=== PATIENT | male | born 1935 | race Caucasian/White ===

== ENCOUNTER → 2017-08-26 08:41 | Outpatient (CLI) | payer MEDICARE, SELFPAY ==
--- NOTE | 2017-08-26 08:43 | CDU_ITS ---
Reason For Study: Carotid stenosis Rt. Velocities/BP Lt. Velocities/BP Prox CCA 65.1/11.1 cm/sec. Prox CCA 78.6/15.2 cm/sec. Mid CCA 48.1/11.1 cm/sec. Mid CCA 73.3/11.1 cm/sec. Dist CCA 46.9/10.6 cm/sec. Dist CCA 72.1/15.2 cm/sec. Prox ICA 63.9/17.6 cm/sec. Prox ICA 61.6/15.8 cm/sec. Mid ICA 77.4/19.9 cm/sec. Mid ICA 79.2/27.0 cm/sec. Dist ICA 70.4/21.1 cm/sec. Dist ICA 78.0/24.6 cm/sec. Rt. ICA/CCA = 1.6. Lt. ICA/CCA = 1.1. Prox ECA 54.0/5.2 cm/sec. Prox ECA 75.0/8.8 cm/sec. Rt. Vert. 30.6/9.4 cm/sec. Lt. Vert. 65.1/17.0 cm/sec. Right Extracranial There is heterogeneous, irregular atherosclerotic plaque noted in the right common carotid artery. There is heterogeneous, irregular atherosclerotic plaque noted in the right internal carotid artery. There is heterogeneous, irregular atherosclerotic plaque noted in the right external carotid artery. Antegrade flow is noted in the right vertebral artery. Left Extracranial There is heterogeneous, irregular atherosclerotic plaque noted in the left common carotid artery. There is heterogeneous, irregular atherosclerotic plaque noted in the left internal carotid artery. There is heterogeneous, irregular atherosclerotic plaque noted in the left external carotid artery. Antegrade flow is noted in the left vertebral artery. Procedure Carotid Duplex [id number]. Exam performed in department. Interpretation Summary Mild (<50%) stenosis right extracranial internal carotid. However, acoustic shadowing is noted in the proximal right internal carotid artery due to arterial calcification, obscuring loyd-scale views of the arterial lumen. The degree of stenosis in the right internal carotid artery may exceed that estimated by velocity criteria alone, and clinical correlation is advised. Alternative imaging may be helpful. Mild (<50%) stenosis left extracranial internal carotid. Flow within the vertebral arteries is antegrade bilaterally. Ordering Physician: Delfino Carrizales Referring Physician: Delfino Carrizales Performed By: Adelaida Zambrano RVT
== END ==
PROVIDERS: Family Provider Family Medicine; PCP Family Medicine; Visit Provider Family Medicine
DX: I65.23 Occlusion and stenosis of bilateral carotid arteries (principal); I25.10 Atherosclerotic heart disease of native coronary artery without angina pectoris
CPT/HCPCS: 93880

== ENCOUNTER → 2017-09-09 07:45 | Outpatient (CLI) | payer MEDICARE, SELFPAY ==
--- NOTE | 2017-09-09 07:51 | CT_ITS ---
STUDY: CTA NECK WITH CONTRAST REASON FOR EXAM: Male, 82 years old. History of carotid stenosis. Prior left carotid endarterectomy. RADIATION DOSAGE (If Supplied By Facility): CTDIvol = ( 19.03 ) mGy, DLP = ( 550.93 ) mGycm TECHNIQUE: CT angiography with multi-detector data acquisition was performed from the aortic arch to the skull base following intravenous administration of 100mL ml of Isovue 370 contrast. MIP images were reconstructed from the axial data set. Post-processing of the angiographic images was performed, with multiplanar reformation and 3D reconstruction. Individualized dose optimization techniques were used for this CT. COMPARISON: Comparison is made with prior study dated December 12, 2015. FINDINGS: 4.2 mm hypodense nodule in the mid upper pole of the right lobe of the thyroid. AORTIC ARCH: There is atherosclerotic calcific plaque formation of the aortic arch and great vessels arising from the aortic arch, without a hemodynamically significant stenosis. There is a normal origin of the brachiocephalic, left common carotid, and left subclavian arteries. Nonstenotic calcific plaques at the origin of the left subclavian artery. RIGHT CAROTID ARTERIES: There is atherosclerotic plaque formation of the common carotid artery, but without a hemodynamically significant stenosis. There is moderate atherosclerotic plaque formation with moderate narrowing of the right carotid bulb. There is extensive atherosclerotic plaque formation of the origin of the right internal carotid artery with an estimated stenosis of greater than 70%. Normal visualized cervical portion of the right internal carotid artery. Normal origin of the right external carotid artery (ECA). LEFT CAROTID ARTERIES: There is atherosclerotic plaque formation of the common carotid artery, but without a hemodynamically significant stenosis. Normal left common carotid bulb. There is mild atherosclerotic plaque formation of the origin of the left internal carotid artery with less than 50% cross sectional diameter stenosis. Normal visualized cervical portion of the left internal carotid artery. Normal origin of the left external carotid artery (ECA). VERTEBRAL ARTERIES: Tight stenosis at the origin of the right vertebral artery due to calcified plaque. Focal nonstenotic plaque in the proximal portion of the right vertebral artery. CT/CTA Neck W/WO Contrast IMPRESSION: Greater than 70% narrowing of the right internal carotid artery at its origin. Status post left endarterectomy and less than 50% narrowing. Electronically Signed: Zoran Barakat MD at 9:39 EDT Tel [phone], Service support ,
[2017-09-09 08:31] LABS: CREATININE FINGERSTICK 0.9 mg/dL (0.70-1.30); EGFR FINGERSTICK > 60.0000 mL/min (>60)
== END ==
PROVIDERS: Family Provider Family Medicine; PCP Family Medicine; Visit Provider Family Medicine
DX: I65.21 Occlusion and stenosis of right carotid artery (principal); I77.9 Disorder of arteries and arterioles, unspecified
CPT/HCPCS: 70498; Q9967; A4216

== ENCOUNTER 2017-12-17 03:58 | Observation (INO) | payer MEDICARE, SELFPAY ==
[2017-12-17 03:59] VITALS: BP 197/105; PULSE 60; RESP 14; TEMP 37.1; O2SAT 96; BMI 24.8
--- NOTE | 2017-12-17 04:06 | EKG12_ITS ---
Test Reason : CP Blood Pressure : / mmHG Vent. Rate : 060 BPM Atrial Rate : 060 BPM P-R Int : 230 ms QRS Dur : 148 ms QT Int : 436 ms P-R-T Axes : -08 083 -61 degrees QTc Int : 436 ms Atrial-paced rhythm with prolonged AV conduction Right bundle branch block Marked T-wave abnormality, consider inferolateral ischemia Abnormal ECG Confirmed by HE METZGER MD ([id number]), manager editorial BALWINDER ANDERSON ([id number]) on 12/17/2017 1:04:47 PM Referred By: ISABEL Confirmed By:HE METZGER MD
--- NOTE | 2017-12-17 04:09 | RAD_ITS ---
STUDY: X-RAY CHEST REASON FOR EXAM: Male, 82 years old. Chest pain TECHNIQUE: Single AP portable view of the chest. COMPARISON: 06/12/2015. 06/21/2014. FINDINGS: There are superimposed monitor leads. There is a stable multilead permanent pacemaker. Stable calcified nodule right base. There is no demonstrated pleural abnormality. There is stable mild cardiac enlargement since 2015. There are calcified mediastinal lymph nodes. Normal visualized pulmonary arteries. There is atherosclerotic calcification of the aortic arch with tortuosity. There are diffuse degenerative changes of the visualized thoracic spine. There is degenerative osteoarthritis of the bilateral shoulders. There is no demonstrated abnormality of the visualized soft tissue structures of the upper abdomen. RAD/Chest 1 View (Portable) IMPRESSION: Stable mild cardiac enlargement, postsurgical changes, arteriosclerosis, remote granulomatous exposure. No pulmonary edema, congestive heart failure or confluent pneumonia. Electronically Signed: Mita Perkins MD at 4:20 EDT , Service support ,
--- NOTE | 2017-12-17 04:12 | ED.DCSUM_ITS ---
- ER Visit Summary Date of Service: 12/17/17 Chief Complaint: [Chest pain] History of Present Illness: The patient is a 82 M who developed chest pain about 2-3 days ago, it has been waxing and waning, it is worse today. He says it felt just like the last time he needed a stent. He did work heavy yesterday. He has no diaphoresis, no nausea or vomiting. He has no back pain or tearing sensation. No fever or chills. No PE risk factors, he is on Eliquis. Physical Examination: Not appear in acute distress. Moist mucous membranes, no obvious facial deformity No C-spine tenderness supple neck. Regular rate and rhythm without any obvious murmurs Clear lungs bilaterally speaking in full sentences without any obvious respiratory distress Abdomen soft and nontender no guarding or rebound Moves all extremities without any difficulty or pain. Skin does not show any obvious rashes or lesions, no trauma. Alert oriented ?3 with no gross focal deficit Emergency Department Course and Treatment: KG shows a paced rhythm, compared to the last EKG which also showed a paced rhythm there is lateral ST depression. Patient was given nitroglycerin. His troponin is negative. He is pain is improved but not completely. Patient is on Eliquis, after talking to cardiology we will hold this, we will load him with Plavix, patient will be admitted to the hospitalist service. Disposition: Admit in stable condition Impression: Chest pain This note was generated with [employer] dictation software. It may contain incorrect words, spelling, and punctuation that were not noted in review of the chart prior to signing ED Disposition - Plan for ED Patient: Chief Complaint: Chest Pain Referrals: Delfino Carrizales DO [Primary Care Provider] -
[2017-12-17] MEDS: Aspirin 81 MG TAB.CHEW 324 MG PO (04:15)
[2017-12-17 04:22] VITALS: BP 104/58
[2017-12-17 04:24] LABS: Absolute Lymphocyte Count 1.73 X10^3/ul (0.83-4.51); Basophil# 0.07 X10^3/uL; Basophil% 0.9 % (0-1); Eosinophils% 3.7 % (0-5); Hematocrit 37.4 % (40-54); Hemoglobin 12.6 g/dl (13.0-16.5); Lymphocyte # 1.73 X10^3/ul (4.0); Lymphocyte % 21.3 % (19-41); Mean Corp Hgb Conc 33.7 g/gl (32-36); Mean Corpuscular Volume 92.1 fL (80-94); Monocyte# 0.98 X10^3/uL; Monocyte% 12.1 % (0-10); Neutrophil % 61.6 % (47-70); Platelet Count 220 K/mm3 (150-450); RBC Distribution Width CV 13.7 % (11.6-14.6); RBC Distribution Width SD 46.2 fl (35.1-43.9); Red Blood Count 4.06 M/mm3 (4.6-6.2); White Blood Count 8.1 K/mm3 (4.4-11.0)
[2017-12-17 04:25] LABS: POSITIVE COUNT NO; POSITIVE DIFFERENTIAL NO; POSITIVE MORPHOLOGY NO
[2017-12-17 04:52] LABS: Anion Gap 8 (5-15); BUN 16 mg/dL (7-18); Calcium,Total 9.2 mg/dL (8.5-10.1); Chloride 101 mmol/L (98-107); EST Glomerular Filtration Rate 76 mL/min (>60); Est Glom Filt Rate - Afr Amer 92 mL/min (>60); Estimated Creatinine Clearance 52.33 ml/min; Glucose 105 mg/dL (74-106); Potassium 4.8 mmol/L (3.5-5.1); Sodium Level 135 mmol/L (136-145)
--- NOTE | 2017-12-17 04:59 | PCM.HP.STD ---
Problem List (1) Hypertension Status: Chronic Qualifiers: Hypertension type: essential hypertension Qualified Code(s): I10 - Essential (primary) hypertension (2) Type II diabetes mellitus Status: Chronic (3) Chest pain Status: Acute History of Present Illness Date of Admission: 12/17/17 Chief Complaint: chest pain The patient is a 82 year old M with a significant history of borderline diabetes, paroxysmal A. fib hypertension, pacemaker, hypothyroidism, allergies requiring weekly allergy shots, hyperlipidemia, carotid endarterectomy, CAD with stents requiring reperfusion therapy years afterwards who represents with progressively worsening chest pain that started 3 days before the day of this admission. Patient states that his chest pain appears to be the same as when he required stents and also when he required reperfusion of his stent. The patient describes his chest pain as an ache.His chest pain is located in the left side of his chest and is nonradiating. He states that he did some yard work a day before his presentation and need things that he had with a might have contributed to his chest pain. However he concedes that the chest pain actually began 2 days before doing his yard work. A troponin at emergency department was unremarkable. His EKG showed a paced rhythm but compared to his previous EKG, there was some ST depressions in the lateral leads. At emergency department chief librarian extension department, Dr. Meyer was called. Per chief librarian extension department recommendation, Eliquis should be held and patient should be loaded with Plavix. Plavix was administered at emergency department. Patient reported the last time he took his Eliquis was about 9 PM on 12/16/2017. Past Medical History Past Medical History (Chronic Problems): Chronic Problems (Last Reviewed 12/17/17 @ 06:17 by Markel Araujo MD) Symptomatic bradycardia (Chronic) Elevated liver enzymes (Chronic) Left carotid artery stenosis (Chronic) Left Carotid Endarterectomy 07/2003 Presence of cardiac pacemaker (Chronic ~03/06/11) [facility] Paroxysmal atrial fibrillation (Chronic) Atherosclerosis of coronary artery of [place] heart without angina pectoris (Chronic) PCI-LAD 02/2000, Cutting balloon angioplasty of ISR Mid LAD 09/25/2003 History of coronary artery stent placement (Chronic ~09/25/03) PCI-LAD 02/2000, Cutting balloon angioplasty of ISR Mid LAD 09/25/2003 Hypertension (Chronic) Hyperlipidemia (Chronic) Type II diabetes mellitus (Chronic) Medical History: Medical History (Last Reviewed 12/17/17 @ 06:17 by Markel Araujo MD) Symptomatic bradycardia (Chronic) R00.1 Elevated liver enzymes (Chronic) R74.8 Left carotid artery stenosis (Chronic) I65.22 Left Carotid Endarterectomy 07/2003 Paroxysmal atrial fibrillation (Chronic) I48.0 Atherosclerosis of coronary artery of [place] heart without angina pectoris (Chronic) I25.10 PCI-LAD 02/2000, Cutting balloon angioplasty of ISR Mid LAD 09/25/2003 Hypertension (Chronic) I10 Hyperlipidemia (Chronic) E78.5 Type II diabetes mellitus (Chronic) E11.9 COPD (chronic obstructive pulmonary disease) J44.9 Hepatic cyst K76.89 Obstructive sleep apnea G47.33 Osteoarthritis M19.90 TIA (transient ischemic attack) G45.9 Vertebral artery stenosis I65.09 Allergies codeine Adverse Reaction (Verified 12/17/17 04:07) Vomiting Home Medications: Ambulatory Orders Medication Instructions Recorded Budesonide/Formoterol 80-4.5 1 puff INHALATION DAILY 12/01/13 [Symbicort 80-4.5 Mcg Inhaler] Levothyroxine [Synthroid] 50 mcg PO DAILY 12/01/13 Zolpidem Tartrate 5 mg PO QHS 12/01/13 Aspirin [Aspirin, Baby] 81 mg PO DAILY@0800 06/12/15 Metformin HCl [Metformin HCl ER] 500 mg PO DAILY 06/12/15 Multivitamin [Daily Multiple 1 ea PO DAILY 06/12/15 Vitamin] Pravastatin [Pravachol] 20 mg PO DAILY 06/12/15 apixaban 5 mg tablet 5 mg PO BID #180 tab 07/21/17 metoprolol tartrate 25 mg tablet 25 mg PO BID #180 tab 09/21/17 Lisinopril [Prinivil] 10 mg PO BID 12/17/17 Surgical History: Surgical History (Last Reviewed 12/17/17 @ 06:17 by Markel Araujo MD) Presence of cardiac pacemaker (Chronic) Onset Date: ~03/06/[address] [facility] [address] History of coronary artery stent placement (Chronic) Onset Date: ~09/25/03 Z95.5 PCI-LAD 02/2000, Cutting balloon angioplasty of ISR Mid LAD 09/25/2003 History of left-sided carotid endarterectomy Onset Date: ~07/2003 Z98.890 cardiac cath with fractional flow reserve Onset Date: ~02/27/11 mid LAD FFR 0.93 @ [facility] Surgical History: cataract, total knee arthroplasty - Right side, - - Left carotid endarterectomy, coronary stent in 1999 Psychiatric History: No pertinent psych hx Smoking Status: Former smoker - *Family History Maternal History Items: Heart Disease, Stroke Paternal History Items: Cancer Review of Systems Constitutional: Denies: Chills, Fever, Weight Change HEENT: Denies: Head Aches, Sinus Congestion, Sinus Drainage Cardiovascular: Reports: Chest Pain Respiratory: Denies: Cough, Shortness of breath at rest, Sputum production Gastrointestinal: Denies: Abdominal Pain, Nausea, Vomiting Genitourinary: Denies: Dysuria Musculoskeletal: Denies: Joint Pain, Joint Tenderness Skin: Denies: Rash, Wounds Neurological: Denies: Numbness, Tingling, Focal weakness Psychiatric: Denies: Anxiety, Depression, Homicidal Ideations, Suicidal Ideations Hematologic/ Lymphatic: Denies: Easy Bruising, Easy Bleeding VTE Information - Inpt Only VTE Present on Admission: No VTE Mechan Device Prophylaxis: None VTE Pharm Prophylaxis ordered?: No Reason prophylaxis not ordered:: Medical Contraindication Patient Problems: Active and Suspected Problems (Last Reviewed 12/17/17 @ 06:17 by Markel Araujo MD) Chest pain (Acute) - Physical Exam General: Alert, Oriented x3, Cooperative HEENT: Atraumatic, PERRLA, EOMI, Normocephalic Neck: Supple, No JVD, Negative Carotid Bruits Lungs: Clear to auscultation, Normal air movement Cardiovascular: - - Nontender chest a pacemaker-like object in left side of his chest. Abdomen: Distended - Hard abdomen (patient states that this is chronic) Skin: No rashes, No breakdown Musculoskeletal: No Tenderness to Palpation of Joints or Extremities Neurological: Cranial nerves II-XII grossly intact Vital Signs Temp Pulse Resp BP Pulse Ox 98.8 F 60 14 104/58 L 96 12/17/17 03:59 12/17/17 03:59 12/17/17 03:59 12/17/17 04:22 12/17/17 03:59 Oxygen Flow Rate (L/min) 2 Oxygen Delivery Method Nasal Cannula Weight: 71.9 kg Body Mass Index (BMI) 24.8 Laboratory Tests Past 24 Hrs 12/17/17 12/17/17 04:02 04:02 WBC 8.1 RBC 4.06 L Hgb 12.6 L Hct 37.4 L MCV 92.1 MCH 31.0 MCHC 33.7 RDW 13.7 RDW Differential 46.2 H Plt Count 220 MPV 10.0 Immature Gran % (Auto) 0.400 Neut % (Auto) 61.6 Lymph % (Auto) 21.3 Burke % (Auto) 12.1 H Eos % (Auto) 3.7 Baso % (Auto) 0.9 Absolute Neuts (auto) 5.0 Absolute Lymphs (auto) 1.73 Total Counted Not Reportable Sodium 135 L Potassium 4.8 Chloride 101 Carbon Dioxide 26.0 Anion Gap 8 BUN 16 Creatinine 1.00 Estim Creat Clear Calc 52.33 Est GFR (MDRD) Af Amer 92 Est GFR (MDRD) Non-Af 76 BUN/Creatinine Ratio 16.0 Glucose 105 Calcium 9.2 Troponin I < 0.015 Assessment/Plan All Active Problems (Last Reviewed 12/17/17 @ 06:17 by Markel Araujo MD) Chest pain (Acute) Dehydration (Resolved) Orthostasis (Resolved) Vertebral artery stenosis (Resolved) The patient is a 82 year old M with a significant history of borderline diabetes, paroxysmal A. fib hypertension, pacemaker, hypothyroidism, allergies requiring weekly allergy shots, hyperlipidemia, carotid endarterectomy, CAD with stents requiring reperfusion therapy years afterwards who represents with progressively worsening chest pain similar in characteristics to his acute coronary syndrome. Chest pain Status post aspirin 324 mg and Plavix 300 mg at emergency department. Serial troponin ordered. Metoprolol and lisinopril continued Pravastatin continued N.p.o. Eliquis on hold per cardiology recommendation Nitroglycerin and morphine as needed Antiemetics as needed Cardiology consult Diabetes mellitus Metformin on hold Correction scale insulin ordered Hypothyroidism Synthroid continued Hypertension Continue lisinopril and metoprolol. DVT prophylaxis Not indicated. Patient took his last Eliquis at around 9 PM on 12/16/2017. Eliquis held at this time per cardiology recommendation. Code Visit OBSV E&M: 84143 Initial observation care L2
[2017-12-17] MEDS: Clopidogrel Bisulfate 300 MG Tablet PO (05:13)
--- NOTE | 2017-12-17 06:05 | NURSING ---
Called ED agriculture technician, Erica to confirm Pt okay to come to PCU.
--- NOTE | 2017-12-17 06:10 | EKG12_ITS ---
Test Reason : ADMISSION Blood Pressure : / mmHG Vent. Rate : 059 BPM Atrial Rate : 059 BPM P-R Int : 240 ms QRS Dur : 154 ms QT Int : 474 ms P-R-T Axes : 000 -80 073 degrees QTc Int : 469 ms AV dual-paced rhythm with prolonged AV conduction Abnormal ECG Confirmed by BRIE ALBERTO, DAMARIS ([id number]), web editor BALWINDER ANDERSON ([id number]) on 12/21/2017 1:20:21 PM Referred By: Confirmed By:DAMARIS BAIRD MD
[2017-12-17 06:33] VITALS: BP 157/86; PULSE 61; RESP 16; TEMP 36.7; O2SAT 97
[2017-12-17 06:36] VITALS: BMI 24.0
--- NOTE | 2017-12-17 06:50 | NURSING ---
Pt states he does not know medications. Pt states his has a list of his medications. Pt states can bring list in when she come back to the hospital.
[2017-12-17 07:11] LABS: Bedside Glucose 107 mg/dL (70-110)
[2017-12-17 07:12] VITALS: PULSE 60
[2017-12-17 08:00] VITALS: O2SAT 97
--- NOTE | 2017-12-17 08:32 | STE_ITS ---
Reason For Study: Chest Pain Stress Results Protocol: Dobutamine Stress Echo Maximum Predicted HR: 137 bpm Target HR: 116 bpm% Maximum Pre dicted HR: 86 % DurationHeart Rate Stage (mm:ss) (bpm) BPCom ment Baseline 60 166/82 No Chest Pain DSE 10 MCG 3:29 60 182/97No Chest Pain DSE 20 MCG 3:00 60 185/98No Chest Pain DSE 30 MCG 3:16 82 168/72No Chest Pain; Atropine 0.25 MG IVP DSE 40 MCG 3:54 11 8 162/69No Chest Pain; Atropine 0.75 MG IVP Recovery 59 127/65 No Chest Pain Stress Duration: 13:39 mm:ss Maximum Stress HR: 118 bpmME TS: 1 Baseline Echocardiogram Findings The estimated ejection fraction is 65 %. Stress Echo Wall motion Data Resting WMIntermediate WMStress WM Resting Wall Motion Wall Motion Stress No regional wall motion No regional wall motion abnormalities noted. abnormalities noted. EKG Data Normal intervals are noted. The patient was titrated from 10 mcg to a maximum of 40 mcg of dobutamine during the stress. The maximum heart rate attained was 136 beats per minute. This was 99% of maximum predicted heart rate. During dobutamine infusion, there were no ST or T wave changes noted to suggest ischemia. No clinical angina was noted. Interpretation Summary The estimated ejection fraction is 65 %. Normal, adequate, dobutamine echocardiogram. Negative for ischemia by EKG and echocardiographic criteria. No anginal symptoms noted. Rare PACs noted. Hypertensive blood pressure response to dobutamine. Final LVEF is 75%. No complications. Ordering Physician: Sudhir Meyer Referring Physician: Sudhir Meyer Performed By: Maria Del Carmen Marquez, SANJAY, RVT
[2017-12-17] MEDS: Aspirin E.C. 81 MG Tablet PO (08:42)
[2017-12-17] MEDS: Lisinopril 10 MG Tablet PO (08:42)
[2017-12-17 08:50] VITALS: BMI 24.0
[2017-12-17 11:04] VITALS: PULSE 62
--- NOTE | 2017-12-17 11:48 | DCINST_ITS ---
- Discharge Diagnoses Current Active Problems: Current Active and Chronic Problems (Last Reviewed 12/17/17 @ 06:17 by Markel Araujo MD) Chest pain (Acute) You will use the following diet at home:: Cardiac Discharge Activity: Return to Normal Activity Call your doctor if you observe: Shortness of breath, Dizziness, Fainting spells , Chest pain Allergies/Adverse Reactions: Allergies poison shay extract Allergy (Verified 12/17/17 06:39) Rash codeine Adverse Reaction (Verified 12/17/17 04:07) Vomiting seasonal Allergy (Uncoded 12/17/17 06:40) Other Medications to take at Discharge Budesonide/Formoterol 80-4.5 [Symbicort 80-4.5 Mcg Inhaler] 1 puff INHALATION DAILY 12/01/13 Levothyroxine [Synthroid] 50 mcg PO DAILY 12/01/13 Zolpidem Tartrate 5 mg PO QHS 12/01/13 Aspirin [Aspirin, Baby] 81 mg PO DAILY@0800 06/12/15 Metformin HCl [Metformin HCl ER] 500 mg PO DAILY 06/12/15 Multivitamin [Daily Multiple Vitamin] 1 ea PO DAILY 06/12/15 Pravastatin [Pravachol] 20 mg PO DAILY 06/12/15 apixaban 5 mg tablet 5 mg PO BID #180 tab 07/21/17 metoprolol tartrate 25 mg tablet 25 mg PO BID #180 tab 09/21/17 Lisinopril [Prinivil] 10 mg PO BID 12/17/17 Primary Care Physician: Delfino Carrizales DO [Primary Care Provider] - Please follow up with your Primary Care Physician in: 1 Week Test Results: Test results from this visit will be discussed in further detail at your follow- up appointment, if applicable. Please Follow Up With: Andrew Bradley MD When: As scheduled Proposed Discharge Date: 12/17/17
--- NOTE | 2017-12-17 11:51 | PCM.DC.SUM ---
<Nikki Carmona - Last Filed: 12/17/17 12:04> Discharge Date and Diagnosis Date of Admission: 12/17/17 Date of Discharge: 12/17/17 - Primary Discharge Diagnosis Active and Suspected Problems (Last Reviewed 12/17/17 @ 06:17 by Markel Araujo MD) 1. Chest pain- ACS ruled out - Secondary Discharge Diagnosis Chronic Problems (Last Reviewed 12/17/17 @ 06:17 by Markel Araujo MD) Symptomatic bradycardia (Chronic) Elevated liver enzymes (Chronic) Left carotid artery stenosis (Chronic) Left Carotid Endarterectomy 07/2003 Presence of cardiac pacemaker (Chronic ~03/06/11) [facility] Paroxysmal atrial fibrillation (Chronic) Atherosclerosis of coronary artery of [place] heart without angina pectoris (Chronic) PCI-LAD 02/2000, Cutting balloon angioplasty of ISR Mid LAD 09/25/2003 History of coronary artery stent placement (Chronic ~09/25/03) PCI-LAD 02/2000, Cutting balloon angioplasty of ISR Mid LAD 09/25/2003 Hypertension (Chronic) Hyperlipidemia (Chronic) Type II diabetes mellitus (Chronic) Hospital Course and Treatment Imaging Results: Diagnostic Data Chest X-Ray 12/17/17 04:09 IMPRESSION: Stable mild cardiac enlargement, postsurgical changes, arteriosclerosis, remote granulomatous exposure. No pulmonary edema, congestive heart failure or confluent pneumonia. Electronically Signed: Mita Perkins MD at 4:20 EDT , Service support , Dr. Meyer- Cardiology Operations: None Procedures: - - Stress echo Summary of Care Provided: The patient is a 82 year old M admitted 12/17/2017 due to chest pain. He has a past medical history of hypertension, paroxysmal atrial fibrillation, status post pacemaker, hypothyroidism, type 2 diabetes mellitus, hyperlipidemia, status post carotid endarterectomy, CAD status post stents. Patient follows with Dr. Bradley on an outpatient basis. Troponin negative. Patient underwent stress echocardiogram which was negative for ischemia, estimated ejection fraction 65%. Patient's blood pressure intermittently elevated during admission. Patient reports his blood pressure is well controlled at home. No changes made to home medication regimen. Instructed patient to continue monitoring blood pressure at home. ACS ruled out. Patient is stable for discharge home with further follow-up primary care physician in [address] Bradley as scheduled. General: Alert, Oriented x3, Cooperative HEENT: Atraumatic, PERRLA, EOMI, Normocephalic Neck: Supple, No JVD, Negative Carotid Bruits Lungs: Clear to auscultation, Normal air movement Cardiovascular: Regular rate, no murmur Abdomen: Firm, nontender Skin: No rashes, No breakdown Musculoskeletal: No Tenderness to Palpation of Joints or Extremities Neurological: Cranial nerves II-XII grossly intact Patient seen exam prior to discharge. Physical assessment as noted above. Patient stable for discharge home with the follow-up recommendations as noted above. This patient was seen by MAXIMILIAN Pendleton under the supervision of Dr. Baum. Discharge Diet: Low fat/ Low Cholesterol Discharge Activity: Return to Normal Activity Call your doctor if you observe: Shortness of breath, Dizziness, Fainting spells, Chest pain Home Medications: Medications to take at Discharge Budesonide/Formoterol 80-4.5 [Symbicort 80-4.5 Mcg Inhaler] 1 puff INHALATION DAILY 12/01/13 Levothyroxine [Synthroid] 50 mcg PO DAILY 12/01/13 Zolpidem Tartrate 5 mg PO QHS 12/01/13 Aspirin [Aspirin, Baby] 81 mg PO DAILY@0800 06/12/15 Metformin HCl [Metformin HCl ER] 500 mg PO DAILY 06/12/15 Multivitamin [Daily Multiple Vitamin] 1 ea PO DAILY 06/12/15 Pravastatin [Pravachol] 20 mg PO DAILY 06/12/15 apixaban 5 mg tablet 5 mg PO BID #180 tab 07/21/17 metoprolol tartrate 25 mg tablet 25 mg PO BID #180 tab 09/21/17 Lisinopril [Prinivil] 10 mg PO BID 12/17/17 Primary Care Physician: Delfino Carrizales DO [Primary Care Provider] - Please follow up with your Primary Care Physician in: 1 Week Please Follow Up With: Andrew Bradley MD When: As scheduled Disposition: Home Minutes spent on discharge:: 35 Patient Condition:: Stable Medical Necessity - Tobacco Use Smoking Status: Former smoker Meaningful Use Info Meaningful Use Diagnoses (Choose all that apply): None applicable <Pérez Cabrera - Last Filed: 12/17/17 13:05> Discharge Date and Diagnosis - Secondary Discharge Diagnosis Chronic Problems (Last Reviewed 12/17/17 @ 06:17 by Markel Araujo MD) Symptomatic bradycardia (Chronic) Elevated liver enzymes (Chronic) Left carotid artery stenosis (Chronic) Left Carotid Endarterectomy 07/2003 Presence of cardiac pacemaker (Chronic ~03/06/11) [facility] Paroxysmal atrial fibrillation (Chronic) Atherosclerosis of coronary artery of [place] heart without angina pectoris (Chronic) PCI-LAD 02/2000, Cutting balloon angioplasty of ISR Mid LAD 09/25/2003 History of coronary artery stent placement (Chronic ~09/25/03) PCI-LAD 02/2000, Cutting balloon angioplasty of ISR Mid LAD 09/25/2003 Hypertension (Chronic) Hyperlipidemia (Chronic) Type II diabetes mellitus (Chronic) Hospital Course and Treatment Imaging Results: 12/17/17 08:32 Stress Test Echo w/o Contrast [ECHO] Routine Summary of Care Provided: This patient was seen in conjunction with MAXIMILIAN Pendleton. I have independently interviewed and examined the patient and reviewed pertinent historical, laboratory, and other data. Please refer to MAXIMILIAN Pendleton note for details of this patient's presentation, findings, and recommendations. I have reviewed MAXIMILIAN Pendleton note and concur with documented findings. In brief, patient is a 82 year gentleman admitted with chest pain Assessment: 1. Acute chest pain 2. Paroxysmal A. fib 3. Status post pacemaker placement 4. Diabetes mellitus type 2 5. Essential hypertension 6. CAD with previous stent placement 7. Dyslipidemia 8. Carotid artery disease status post carotid endarterectomy 9. Hypothyroidism Hospital course as elicited above Code Visit OBSV E&M: 04587 Observation care discharge
--- NOTE | 2017-12-17 12:03 | DS.PCM_ITS ---
<Nikki Carmona - Last Filed: 12/17/17 12:04> Discharge Date and Diagnosis Date of Admission: 12/17/17 Date of Discharge: 12/17/17 - Primary Discharge Diagnosis Active and Suspected Problems (Last Reviewed 12/17/17 @ 06:17 by Markel Araujo MD) 1. Chest pain- ACS ruled out - Secondary Discharge Diagnosis Chronic Problems (Last Reviewed 12/17/17 @ 06:17 by Markel Araujo MD) Symptomatic bradycardia (Chronic) Elevated liver enzymes (Chronic) Left carotid artery stenosis (Chronic) Left Carotid Endarterectomy 07/2003 Presence of cardiac pacemaker (Chronic ~03/06/11) [facility] Paroxysmal atrial fibrillation (Chronic) Atherosclerosis of coronary artery of [place] heart without angina pectoris ( Chronic) PCI-LAD 02/2000, Cutting balloon angioplasty of ISR Mid LAD 09/25/2003 History of coronary artery stent placement (Chronic ~09/25/03) PCI-LAD 02/2000, Cutting balloon angioplasty of ISR Mid LAD 09/25/2003 Hypertension (Chronic) Hyperlipidemia (Chronic) Type II diabetes mellitus (Chronic) Hospital Course and Treatment Imaging Results: Diagnostic Data Chest X-Ray 12/17/17 04:09 IMPRESSION: Stable mild cardiac enlargement, postsurgical changes, arteriosclerosis, remote granulomatous exposure. No pulmonary edema, congestive heart failure or confluent pneumonia. Electronically Signed: Mita Perkins MD at 4:20 EDT , Service support , Dr. Meyer- Cardiology Operations: None Procedures: - - Stress echo Summary of Care Provided: The patient is a 82 year old M admitted 12/17/2017 due to chest pain. He has a past medical history of hypertension, paroxysmal atrial fibrillation, status post pacemaker, hypothyroidism, type 2 diabetes mellitus, hyperlipidemia, status post carotid endarterectomy, CAD status post stents. Patient follows with Dr. Bradley on an outpatient basis. Troponin negative. Patient underwent stress echocardiogram which was negative for ischemia, estimated ejection fraction 65%. Patient's blood pressure intermittently elevated during admission. Patient reports his blood pressure is well controlled at home. No changes made to home medication regimen. Instructed patient to continue monitoring blood pressure at home. ACS ruled out. Patient is stable for discharge home with further follow-up primary care physician in [address] Bradley as scheduled. General: Alert, Oriented x3, Cooperative HEENT: Atraumatic, PERRLA, EOMI, Normocephalic Neck: Supple, No JVD, Negative Carotid Bruits Lungs: Clear to auscultation, Normal air movement Cardiovascular: Regular rate, no murmur Abdomen: Firm, nontender Skin: No rashes, No breakdown Musculoskeletal: No Tenderness to Palpation of Joints or Extremities Neurological: Cranial nerves II-XII grossly intact Patient seen exam prior to discharge. Physical assessment as noted above. Patient stable for discharge home with the follow-up recommendations as noted above. This patient was seen by MAXIMILIAN Pendleton under the supervision of Dr. Baum. Discharge Diet: Low fat/ Low Cholesterol Discharge Activity: Return to Normal Activity Call your doctor if you observe: Shortness of breath, Dizziness, Fainting spells , Chest pain Home Medications: Medications to take at Discharge Budesonide/Formoterol 80-4.5 [Symbicort 80-4.5 Mcg Inhaler] 1 puff INHALATION DAILY 12/01/13 Levothyroxine [Synthroid] 50 mcg PO DAILY 12/01/13 Zolpidem Tartrate 5 mg PO QHS 12/01/13 Aspirin [Aspirin, Baby] 81 mg PO DAILY@0800 06/12/15 Metformin HCl [Metformin HCl ER] 500 mg PO DAILY 06/12/15 Multivitamin [Daily Multiple Vitamin] 1 ea PO DAILY 06/12/15 Pravastatin [Pravachol] 20 mg PO DAILY 06/12/15 apixaban 5 mg tablet 5 mg PO BID #180 tab 07/21/17 metoprolol tartrate 25 mg tablet 25 mg PO BID #180 tab 09/21/17 Lisinopril [Prinivil] 10 mg PO BID 12/17/17 Primary Care Physician: Delfino Carrizales DO [Primary Care Provider] - Please follow up with your Primary Care Physician in: 1 Week Please Follow Up With: Andrew Bradley MD When: As scheduled Disposition: Home Minutes spent on discharge:: 35 Patient Condition:: Stable Medical Necessity - Tobacco Use Smoking Status: Former smoker Meaningful Use Info Meaningful Use Diagnoses (Choose all that apply): None applicable <Pérez Cabrera - Last Filed: 12/17/17 13:05> Discharge Date and Diagnosis - Secondary Discharge Diagnosis Chronic Problems (Last Reviewed 12/17/17 @ 06:17 by Markel Araujo MD) Symptomatic bradycardia (Chronic) Elevated liver enzymes (Chronic) Left carotid artery stenosis (Chronic) Left Carotid Endarterectomy 07/2003 Presence of cardiac pacemaker (Chronic ~03/06/11) [facility] Paroxysmal atrial fibrillation (Chronic) Atherosclerosis of coronary artery of [place] heart without angina pectoris ( Chronic) PCI-LAD 02/2000, Cutting balloon angioplasty of ISR Mid LAD 09/25/2003 History of coronary artery stent placement (Chronic ~09/25/03) PCI-LAD 02/2000, Cutting balloon angioplasty of ISR Mid LAD 09/25/2003 Hypertension (Chronic) Hyperlipidemia (Chronic) Type II diabetes mellitus (Chronic) Hospital Course and Treatment Imaging Results: 12/17/17 08:32 Stress Test Echo w/o Contrast [ECHO] Routine Summary of Care Provided: This patient was seen in conjunction with MAXIMILIAN Pendleton. I have independently interviewed and examined the patient and reviewed pertinent historical, laboratory, and other data. Please refer to MAXIMILIAN Pendleton note for details of this patient's presentation, findings, and recommendations. I have reviewed MAXIMILIAN Pendleton note and concur with documented findings. In brief, patient is a 82 year gentleman admitted with chest pain Assessment: 1. Acute chest pain 2. Paroxysmal A. fib 3. Status post pacemaker placement 4. Diabetes mellitus type 2 5. Essential hypertension 6. CAD with previous stent placement 7. Dyslipidemia 8. Carotid artery disease status post carotid endarterectomy 9. Hypothyroidism Hospital course as elicited above Code Visit OBSV E&M: 45252 Observation care discharge
--- NOTE | 2017-12-17 12:34 | PCM.CONS.C ---
Problem List (1) Chest pain Status: Acute (2) Atherosclerosis of coronary artery of [place] heart without angina pectoris Status: Chronic Qualifiers: Coronary Disease-Associated Artery/Lesion type: [place] artery Qualified Code(s): I25.10 - Atherosclerotic heart disease of [place] coronary artery without angina pectoris Comment: PCI-LAD 02/2000, Cutting balloon angioplasty of ISR Mid LAD 09/25/2003 (3) History of coronary artery stent placement Status: Chronic Comment: PCI-LAD 02/2000, Cutting balloon angioplasty of ISR Mid LAD 09/25/2003 (4) Hyperlipidemia Status: Chronic Qualifiers: Hyperlipidemia type: pure hypercholesterolemia Qualified Code(s): E78.00 - Pure hypercholesterolemia, unspecified; E78.0 - Pure hypercholesterolemia (5) Hypertension Status: Chronic Qualifiers: Hypertension type: essential hypertension Qualified Code(s): I10 - Essential (primary) hypertension Reason for Consult Date of Consultation: 12/17/17 Reason for Consultation: Chest pain, coronary artery disease, hypertension, hypercholesterolemia, paroxysmal atrial fibrillation. History of Present Illness: The patient is a 82 year old M, who sees Dr. Bradley, with a history of hypertension, hypercholesterolemia, atrial fibrillation, status post pacemaker, coronary artery disease status post angioplasty and stenting the most recent of which took placed several years ago. I do not have his exact records in front of me. Patient states that his chest pain at that time was exertional in nature and radiating to his back. Over the last 3 days the patient has had left upper shoulder and left anterior chest pain over the pacemaker pocket after exerting himself with significant isometric exercise. Specifically the patient was removing his cutting blades from his riding mower utilizing a long wrench and engaging in a significant amount of torque. The patient's left upper chest pain he states was similar to his previous anginal symptoms. Patient came to the emergency room last evening with left upper chest pain which was minimally relieved with sublingual nitroglycerin. Patient's pain was relieved after morphine sulfate. His EKG showed paced atrial rhythm with intermittent paced ventricular and [place] ventricular rate. His [place] QRS signature showed some lateral ST segment depression. Patient's troponins were negative ?2 and he underwent a non-walking dobutamine echocardiogram which was negative for inducible ischemia. He had no chest pain whatsoever during the infusion. [] Past Medical History Allergies/Adverse Reactions: Allergies poison shay extract Allergy (Verified 12/17/17 06:39) Rash codeine Adverse Reaction (Verified 12/17/17 04:07) Vomiting seasonal Allergy (Uncoded 12/17/17 06:40) Other Home Medications: Ambulatory Orders Medication Instructions Recorded Budesonide/Formoterol 80-4.5 1 puff INHALATION DAILY 12/01/13 [Symbicort 80-4.5 Mcg Inhaler] Levothyroxine [Synthroid] 50 mcg PO DAILY 12/01/13 Zolpidem Tartrate 5 mg PO QHS 12/01/13 Aspirin [Aspirin, Baby] 81 mg PO DAILY@0800 06/12/15 Metformin HCl [Metformin HCl ER] 500 mg PO DAILY 06/12/15 Multivitamin [Daily Multiple 1 ea PO DAILY 06/12/15 Vitamin] Pravastatin [Pravachol] 20 mg PO DAILY 06/12/15 apixaban 5 mg tablet 5 mg PO BID #180 tab 07/21/17 metoprolol tartrate 25 mg tablet 25 mg PO BID #180 tab 09/21/17 Lisinopril [Prinivil] 10 mg PO BID 12/17/17 Past Medical History (Chronic Problems): Chronic Problems (Last Reviewed 12/17/17 @ 06:17 by Markel Araujo MD) Symptomatic bradycardia (Chronic) Elevated liver enzymes (Chronic) Left carotid artery stenosis (Chronic) Left Carotid Endarterectomy 07/2003 Presence of cardiac pacemaker (Chronic ~03/06/11) [facility] Paroxysmal atrial fibrillation (Chronic) Atherosclerosis of coronary artery of [place] heart without angina pectoris (Chronic) PCI-LAD 02/2000, Cutting balloon angioplasty of ISR Mid LAD 09/25/2003 History of coronary artery stent placement (Chronic ~09/25/03) PCI-LAD 02/2000, Cutting balloon angioplasty of ISR Mid LAD 09/25/2003 Hypertension (Chronic) Hyperlipidemia (Chronic) Type II diabetes mellitus (Chronic) Surgical History: cataract, total knee arthroplasty - Right side, - - Left carotid endarterectomy, coronary stent in 1999 Psychiatric History: No pertinent psych hx - *Family History Maternal History Items: Heart Disease, Stroke Paternal History Items: Cancer Smoking Status: Former smoker Review of Systems - Review of Systems General: Denies: Fever, Night Sweats, Fatigue Cardiovascular: Reports: Chest Discomfort, Chest Discomfort at Rest. Denies: Shortness of Breath, Orthopnea, PND, Peripheral Edema, Palpitations, Lightheadedness, Dizziness, Near Syncope, Syncope Respiratory: Denies: Cough, Sputum Production, Hemoptysis Gastrointestinal: Denies: Hematemesis, Hematochezia, Melena Genitourinary: Denies: Dysuria, Hematuria Skin: Denies: Rash Subjectve: Patient laying in bed, no acute distress. Chest pain-free. Objective: Vital Signs Temp Pulse Resp BP Pulse Ox 98.0 F 62 16 157/86 H 97 12/17/17 06:33 12/17/17 11:04 12/17/17 06:33 12/17/17 06:33 12/17/17 08:00 Oxygen Delivery Method Room Air Weight: 153 lb 3.54 oz Body Mass Index (BMI) 24.0 General: Awake, Alert, Oriented x 3 HEENT: PERRL, EOMI, Sclera Non Icteric Neck: Supple, Good ROM, No Lymph Node Enlargement Lungs: Clear to auscultation Cardiovascular: Regular Rhythm, Normal S1, Normal S2, No Murmurs, No Rubs, No Gallops Vascular: No Carotid Bruits, Normal Femoral Pulses, Normal Radial Pulses, Normal Dorsalis Pedal Pulse, Normal Posterior Tibial Pulses Abdomen: Bowel Sounds Present, Soft, Non Tender, No HSM, No Organomegaly Extremities: No Cyanosis, No Clubbing, No edema Neurological: No Focal Motor or Sensory Deficit 12/17/17 06:45: Troponin I < 0.015 12/17/17 09:55: Troponin I < 0.015 Rhythm: EKG: As above ECHO: Stress Test: Negative for inducible ischemia Cardiac Cath: PCI: CT Surgery: Holter monitor: EPS: PPM: CXR: Chest CT Scan: Assessment/Plan 1. Coronary artery disease: The patient has presented with atypical left upper chest pain localized over his left anterior chest where his pacemaker is located. He has no reproducible tenderness in this area. Patient's troponins are negative. His EKG is less than helpful given its paced ventricular rhythm and [place] intraventricular conduction delay. He underwent a non-walking dobutamine echocardiogram this morning which showed no evidence of ischemia and no chest pain whatsoever. At this point the patient's pain is most likely musculoskeletal in nature particularly the heavy work he has been doing repairing his riding lawnmower and removing his cutting blades. I have advised the patient not to engage in his heavy activity to avoid damaging his pacemaker pocket and exacerbating his chest pain. If the patient's symptoms return despite his negative stress test I have a low threshold for repeat catheterization given his previous stents and in-stent restenosis which I believe occurred around 2013. Recommend continuing Lopressor, baby aspirin, and lisinopril. 2. Hyperlipidemia: Apparently the patient is unable to take statin based medications. 3. Paroxysmal atrial fibrillation: Patient will continue anticoagulation therapy with Eliquis. 4. Patient may be discharged home and follow-up with Dr. Bradley. Again if he has recurrent chest pain might have a low threshold for repeat catheterization to interrogate his previously placed stents. 5. Thank you very much for the opportunity to precipitate the cardiac care of your patient. Consultation time took place between 8 AM and 8:30 AM. Code Visit Inpatient E&M: 05999 Init Hosp L2
--- NOTE | 2017-12-17 12:41 | CON.PCM_ITS ---
Problem List (1) Chest pain Status: Acute (2) Atherosclerosis of coronary artery of [place] heart without angina pectoris Status: Chronic Qualifiers: Coronary Disease-Associated Artery/Lesion type: [place] artery Qualified Code(s): I25.10 - Atherosclerotic heart disease of [place] coronary artery without angina pectoris Comment: PCI-LAD 02/2000, Cutting balloon angioplasty of ISR Mid LAD 09/25/2003 (3) History of coronary artery stent placement Status: Chronic Comment: PCI-LAD 02/2000, Cutting balloon angioplasty of ISR Mid LAD 09/25/2003 (4) Hyperlipidemia Status: Chronic Qualifiers: Hyperlipidemia type: pure hypercholesterolemia Qualified Code(s): E78.00 - Pure hypercholesterolemia, unspecified; E78.0 - Pure hypercholesterolemia (5) Hypertension Status: Chronic Qualifiers: Hypertension type: essential hypertension Qualified Code(s): I10 - Essential (primary) hypertension Reason for Consult Date of Consultation: 12/17/17 Reason for Consultation: Chest pain, coronary artery disease, hypertension, hypercholesterolemia, paroxysmal atrial fibrillation. History of Present Illness: The patient is a 82 year old M, who sees Dr. Bradley, with a history of hypertension, hypercholesterolemia, atrial fibrillation, status post pacemaker, coronary artery disease status post angioplasty and stenting the most recent of which took placed several years ago. I do not have his exact records in front of me. Patient states that his chest pain at that time was exertional in nature and radiating to his back. Over the last 3 days the patient has had left upper shoulder and left anterior chest pain over the pacemaker pocket after exerting himself with significant isometric exercise. Specifically the patient was removing his cutting blades from his riding mower utilizing a long wrench and engaging in a significant amount of torque. The patient's left upper chest pain he states was similar to his previous anginal symptoms. Patient came to the emergency room last evening with left upper chest pain which was minimally relieved with sublingual nitroglycerin. Patient's pain was relieved after morphine sulfate. His EKG showed paced atrial rhythm with intermittent paced ventricular and [place] ventricular rate. His [place] QRS signature showed some lateral ST segment depression. Patient's troponins were negative ?2 and he underwent a non-walking dobutamine echocardiogram which was negative for inducible ischemia. He had no chest pain whatsoever during the infusion. [] Past Medical History Allergies/Adverse Reactions: Allergies poison shay extract Allergy (Verified 12/17/17 06:39) Rash codeine Adverse Reaction (Verified 12/17/17 04:07) Vomiting seasonal Allergy (Uncoded 12/17/17 06:40) Other Home Medications: Ambulatory Orders Medication Instructions Recorded Budesonide/Formoterol 80-4.5 1 puff INHALATION DAILY 12/01/13 [Symbicort 80-4.5 Mcg Inhaler] Levothyroxine [Synthroid] 50 mcg PO DAILY 12/01/13 Zolpidem Tartrate 5 mg PO QHS 12/01/13 Aspirin [Aspirin, Baby] 81 mg PO DAILY@0800 06/12/15 Metformin HCl [Metformin HCl ER] 500 mg PO DAILY 06/12/15 Multivitamin [Daily Multiple 1 ea PO DAILY 06/12/15 Vitamin] Pravastatin [Pravachol] 20 mg PO DAILY 06/12/15 apixaban 5 mg tablet 5 mg PO BID #180 tab 07/21/17 metoprolol tartrate 25 mg tablet 25 mg PO BID #180 tab 09/21/17 Lisinopril [Prinivil] 10 mg PO BID 12/17/17 Past Medical History (Chronic Problems): Chronic Problems (Last Reviewed 12/17/17 @ 06:17 by Markel Araujo MD) Symptomatic bradycardia (Chronic) Elevated liver enzymes (Chronic) Left carotid artery stenosis (Chronic) Left Carotid Endarterectomy 07/2003 Presence of cardiac pacemaker (Chronic ~03/06/11) [facility] [address] Paroxysmal atrial fibrillation (Chronic) Atherosclerosis of coronary artery of [place] heart without angina pectoris ( Chronic) PCI-LAD 02/2000, Cutting balloon angioplasty of ISR Mid LAD 09/25/2003 History of coronary artery stent placement (Chronic ~09/25/03) PCI-LAD 02/2000, Cutting balloon angioplasty of ISR Mid LAD 09/25/2003 Hypertension (Chronic) Hyperlipidemia (Chronic) Type II diabetes mellitus (Chronic) Surgical History: cataract, total knee arthroplasty - Right side, - - Left carotid endarterectomy, coronary stent in 1999 Psychiatric History: No pertinent psych hx - *Family History Maternal History Items: Heart Disease, Stroke Paternal History Items: Cancer Smoking Status: Former smoker Review of Systems - Review of Systems General: Denies: Fever, Night Sweats, Fatigue Cardiovascular: Reports: Chest Discomfort, Chest Discomfort at Rest. Denies: Shortness of Breath, Orthopnea, PND, Peripheral Edema, Palpitations, Lightheadedness, Dizziness, Near Syncope, Syncope Respiratory: Denies: Cough, Sputum Production, Hemoptysis Gastrointestinal: Denies: Hematemesis, Hematochezia, Melena Genitourinary: Denies: Dysuria, Hematuria Skin: Denies: Rash Subjectve: Patient laying in bed, no acute distress. Chest pain-free. Objective: Vital Signs Temp Pulse Resp BP Pulse Ox 98.0 F 62 16 157/86 H 97 12/17/17 06:33 12/17/17 11:04 12/17/17 06:33 12/17/17 06:33 12/17/17 08:00 Oxygen Delivery Method Room Air Weight: 153 lb 3.54 oz Body Mass Index (BMI) 24.0 General: Awake, Alert, Oriented x 3 HEENT: PERRL, EOMI, Sclera Non Icteric Neck: Supple, Good ROM, No Lymph Node Enlargement Lungs: Clear to auscultation Cardiovascular: Regular Rhythm, Normal S1, Normal S2, No Murmurs, No Rubs, No Gallops Vascular: No Carotid Bruits, Normal Femoral Pulses, Normal Radial Pulses, Normal Dorsalis Pedal Pulse, Normal Posterior Tibial Pulses Abdomen: Bowel Sounds Present, Soft, Non Tender, No HSM, No Organomegaly Extremities: No Cyanosis, No Clubbing, No edema Neurological: No Focal Motor or Sensory Deficit 12/17/17 06:45: Troponin I < 0.015 12/17/17 09:55: Troponin I < 0.015 Rhythm: EKG: As above ECHO: Stress Test: Negative for inducible ischemia Cardiac Cath: PCI: CT Surgery: Holter monitor: EPS: PPM: CXR: Chest CT Scan: Assessment/Plan 1. Coronary artery disease: The patient has presented with atypical left upper chest pain localized over his left anterior chest where his pacemaker is located. He has no reproducible tenderness in this area. Patient's troponins are negative. His EKG is less than helpful given its paced ventricular rhythm and [place] intraventricular conduction delay. He underwent a non-walking dobutamine echocardiogram this morning which showed no evidence of ischemia and no chest pain whatsoever. At this point the patient's pain is most likely musculoskeletal in nature particularly the heavy work he has been doing repairing his riding lawnmower and removing his cutting blades. I have advised the patient not to engage in his heavy activity to avoid damaging his pacemaker pocket and exacerbating his chest pain. If the patient's symptoms return despite his negative stress test I have a low threshold for repeat catheterization given his previous stents and in-stent restenosis which I believe occurred around 2013. Recommend continuing Lopressor, baby aspirin, and lisinopril. 2. Hyperlipidemia: Apparently the patient is unable to take statin based medications. 3. Paroxysmal atrial fibrillation: Patient will continue anticoagulation therapy with Eliquis. 4. Patient may be discharged home and follow-up with Dr. Bradley. Again if he has recurrent chest pain might have a low threshold for repeat catheterization to interrogate his previously placed stents. 5. Thank you very much for the opportunity to precipitate the cardiac care of your patient. Consultation time took place between 8 AM and 8:30 AM. Code Visit Inpatient E&M: 44057 Init Hosp L2
== END 2017-12-17 12:30 | disposition home or self-care (01) ==
LOC: ED 04:12 → PCU 06:01
PROVIDERS: Admitting Provider Hospitalist; Emergency Provider Emergency Medicine; Family Provider Family Medicine; PCP Family Medicine; Visit Provider Internal Medicine
DX: R07.89 Other chest pain (principal); I25.10 Atherosclerotic heart disease of native coronary artery without angina pectoris; E78.5 Hyperlipidemia, unspecified; I10 Essential (primary) hypertension; I48.0 Paroxysmal atrial fibrillation; E11.9 Type 2 diabetes mellitus without complications; E03.9 Hypothyroidism, unspecified; Z95.5 Presence of coronary angioplasty implant and graft; Z79.899 Other long term (current) drug therapy; Z79.82 Long term (current) use of aspirin; Z79.84 Long term (current) use of oral hypoglycemic drugs; Z87.891 Personal history of nicotine dependence; J44.9 Chronic obstructive pulmonary disease, unspecified; G47.33 Obstructive sleep apnea (adult) (pediatric); M19.90 Unspecified osteoarthritis, unspecified site; Z86.73 Personal history of transient ischemic attack (TIA), and cerebral infarction without residual deficits; Z79.51 Long term (current) use of inhaled steroids
CPT/HCPCS: 36415; 71045; 80048; 82962; 84484; 85025; 93005; 93017; 93350; 99218; 99283; J7030; A4216; G0378; J2405

== ENCOUNTER → 2018-02-17 08:49 | Outpatient (CLI) | payer MEDICARE, SELFPAY ==
[2018-02-17 12:08] LABS: Absolute Lymphocyte Count 1.33 X10^3/ul (0.83-4.51); Absolute Neutrophil Count 4.9 X10^3/uL (2.0-7.7); Basophil# 0.07 X10^3/uL; Eosinophil# 0.24 X10^3/uL; Eosinophils% 3.4 % (0-5); Hematocrit 42.8 % (40-54); Lymphocyte # 1.33 X10^3/ul (4.0); Lymphocyte % 18.7 % (19-41); Mean Corp Hgb Conc 32.7 g/gl (32-36); Mean Corpuscular Hgb 31.1 pg (27.0-32.0); Mean Corpuscular Volume 95.1 fL (80-94); Mean Platelet Vol. 10.7 fl (6.2-12.0); Monocyte# 0.54 X10^3/uL; Monocyte% 7.6 % (0-10); Neutrophil # 4.93 X10^3/uL (2.7-7.7); Platelet Count 248 K/mm3 (150-450); RBC Distribution Width CV 13.9 % (11.6-14.6); RBC Distribution Width SD 47.1 fl (35.1-43.9); White Blood Count 7.1 K/mm3 (4.4-11.0)
[2018-02-17 12:13] LABS: POSITIVE COUNT NO; POSITIVE DIFFERENTIAL NO; POSITIVE MORPHOLOGY NO
[2018-02-17 12:22] LABS: Hemoglobin A1c 6.5 % (4.2-6.3)
[2018-02-17 13:07] LABS: ALB/GLOB Ratio 1.3 RATIO (0.9-2.4); AST(SGOT) 27 U/L (15-37); Alanine Aminotransfer ALT/SGPT 42 U/L (16-61); Alkaline Phosphatase 100 U/L (45-117); Anion Gap 7 (5-15); BUN 21 mg/dL (7-18); BUN/Creat Ratio 20.6 RATIO (10-20); Calcium,Total 9.4 mg/dL (8.5-10.1); Chloride 107 mmol/L (98-107); Cholesterol 136 mg/dL (200); Creatinine, Serum 1.02 mg/dL (0.70-1.30); EST Glomerular Filtration Rate 74 mL/min (>60); Est Glom Filt Rate - Afr Amer 90 mL/min (>60); Globulin 3.1 g/dL (2.2-4.2); Glucose 102 mg/dL (74-106); High Density Lipoprotein 44 mg/dL; Protein, Total 7.1 g/dL (6.4-8.2); Sodium Level 142 mmol/L (136-145); Thyroid Stim Hormone (TSH) 2.71 uIU/mL (0.358-3.74); Triglycerides 130 mg/dL; Very Low Density Lipoprotein 26 mg/dL (5-40)
== END ==
PROVIDERS: Family Provider Family Medicine; PCP Family Medicine; Visit Provider Family Medicine
DX: E11.9 Type 2 diabetes mellitus without complications (principal); I25.10 Atherosclerotic heart disease of native coronary artery without angina pectoris; I10 Essential (primary) hypertension; E78.5 Hyperlipidemia, unspecified; E03.9 Hypothyroidism, unspecified
CPT/HCPCS: 36415; 80053; 80061; 83036; 84443; 85025

== ENCOUNTER → 2018-07-13 07:49 | Outpatient (CLI) | payer MEDICARE, SELFPAY ==
[2018-07-05 09:48] VITALS: BMI 23.5
[2018-07-13 08:50] LABS: AST(SGOT) 22 U/L (15-37); Alanine Aminotransfer ALT/SGPT 38 U/L (16-61); Albumin, Serum 3.8 g/dL (3.2-5.0); Alkaline Phosphatase 84 U/L (45-117); Bilirubin, Direct 0.11 mg/dL (0.00-0.30); Globulin 3.3 g/dL (2.2-4.2); Protein, Total 7.1 g/dL (6.4-8.2); T4 Free Direct 1.21 ng/dL (0.76-1.46); Thyroid Stim Hormone (TSH) 3.43 uIU/mL (0.358-3.74)
--- NOTE | 2018-07-13 13:26 | PFT ---
INTRODUCTION: The patient is an 83-year-old male that presents for pulmonary function testing secondary to a diagnosis of high risk medication use. Respiratory therapy reports good patient effort. Bronchodilators were used during testing. INTERPRETATION: Forced expiration spirometry demonstrates the presence of a mild large airways obstructive ventilatory defect. There was no significant response to aerosolized bronchodilators. Spirograms are of good quality and do not plateau indicating slow emptying of the lungs. Body plethysmography was performed and revealed a mildly elevated total lung capacity to 122% of predicted, indicative of underlying hyperinflation. Diffusing capacity by single breath CO was within normal limits at 86% of predicted. IMPRESSION: These pulmonary function studies demonstrate the presence of an irreversible mild large airways obstructive ventilatory defect with a mild degree of associated hyperinflation and preserved diffusing capacity. There are no previous pulmonary function studies available for comparison.
== END ==
PROVIDERS: Family Provider Family Medicine; PCP Family Medicine; Referring Provider Physician Assistant Medical; Visit Provider Physician Assistant Medical
DX: I48.0 Paroxysmal atrial fibrillation (principal); Z95.0 Presence of cardiac pacemaker; I25.10 Atherosclerotic heart disease of native coronary artery without angina pectoris; I10 Essential (primary) hypertension; E78.00 Pure hypercholesterolemia, unspecified
CPT/HCPCS: 36415; 80076; 84439; 84443; 94060; 94726; 94729

== ENCOUNTER → 2018-08-04 08:30 | Outpatient (CLI) | payer MEDICARE, SELFPAY ==
[2018-07-05 09:48] VITALS: BMI 23.5
[2018-08-04 12:42] LABS: Hemoglobin A1c 6.5 % (4.2-6.3)
[2018-08-04 12:53] LABS: BUN 20 mg/dL (7-18); Creatinine, Serum 1.03 mg/dL (0.70-1.30); Glucose 114 mg/dL (74-106)
[2018-08-04 12:54] LABS: ALB/GLOB Ratio 1.2 RATIO (0.9-2.4); AST(SGOT) 25 U/L (15-37); Alanine Aminotransfer ALT/SGPT 36 U/L (16-61); Albumin, Serum 3.6 g/dL (3.2-5.0); Alkaline Phosphatase 72 U/L (45-117); Anion Gap 7 (5-15); BUN/Creat Ratio 19.4 RATIO (10-20); Calcium,Total 8.8 mg/dL (8.5-10.1); Chloride 108 mmol/L (98-107); Cholesterol 134 mg/dL (200); EST Glomerular Filtration Rate 73 mL/min (>60); Est Glom Filt Rate - Afr Amer 88 mL/min (>60); High Density Lipoprotein 53 mg/dL; Potassium 4.6 mmol/L (3.5-5.1); Protein, Total 6.6 g/dL (6.4-8.2); Sodium Level 139 mmol/L (136-145); Thyroid Stim Hormone (TSH) 4.54 uIU/mL (0.358-3.74); Triglycerides 136 mg/dL; Very Low Density Lipoprotein 27 mg/dL (5-40)
== END ==
PROVIDERS: Family Provider Family Medicine; PCP Family Medicine; Visit Provider Family Medicine
DX: E11.40 Type 2 diabetes mellitus with diabetic neuropathy, unspecified (principal); I10 Essential (primary) hypertension; E03.9 Hypothyroidism, unspecified
CPT/HCPCS: 36415; 80053; 80061; 83036; 84443

== ENCOUNTER → 2018-11-28 | Outpatient (CLI) | payer MEDICARE, SELFPAY ==
[2018-07-05 09:48] VITALS: BMI 23.5
== END | disposition home or self-care (01) ==
LOC: BFHLAB 15:34
PROVIDERS: Family Provider Family Medicine; PCP Family Medicine; Visit Provider Family Medicine
DX: R31.9 Hematuria, unspecified (principal)
CPT/HCPCS: 87086; 87088

== ENCOUNTER 2019-01-06 08:32 | Day surgery (SDC) | payer MEDICARE, SELFPAY ==
[2018-07-05 09:48] VITALS: BMI 23.5
[2018-12-30 14:20] VITALS: BP 130/68; PULSE 60; RESP 17; TEMP 36.8; O2SAT 96; BMI 24.0
--- NOTE | 2018-12-30 14:53 | SDCEKG_ITS ---
Test Reason : Blood Pressure : / mmHG Vent. Rate : 060 BPM Atrial Rate : 060 BPM P-R Int : 192 ms QRS Dur : 182 ms QT Int : 502 ms P-R-T Axes : 000 -84 062 degrees QTc Int : 502 ms AV sequential or dual chamber electronic pacemaker Confirmed by BRIE ALBERTO, DAMARIS ([id number]), video editor BALWINDER ANDERSON ([id number]) on 01/02/2019 11:53:45 AM Referred By: Sony Nguyen Confirmed By:DAMARIS BAIRD MD
[2018-12-30 15:29] LABS: Hematocrit 38.7 % (40-54); Hemoglobin 13.1 g/dL (13.0-16.5); Mean Corp Hgb Conc 33.9 g/dL (32-36); Mean Corpuscular Volume 94.4 fL (80-94); Mean Platelet Vol. 10.3 fl (6.2-12.0); Platelet Count 195 K/mm3 (150-450); RBC Distribution Width CV 13.3 % (11.6-14.6); RBC Distribution Width SD 45.7 fl (35.1-43.9); White Blood Count 6.9 K/mm3 (4.4-11.0)
[2018-12-30 15:49] LABS: Anion Gap 4 (5-15); BUN 18 mg/dL (7-18); BUN/Creat Ratio 19.8 RATIO (10-20); Calcium,Total 9.4 mg/dL (8.5-10.1); Chloride 103 mmol/L (98-107); Creatinine, Serum 0.91 mg/dL (0.70-1.30); EST Glomerular Filtration Rate 85 mL/min (>60); Est Glom Filt Rate - Afr Amer 102 mL/min (>60); Estimated Creatinine Clearance 54.53 ml/min; Glucose 150 mg/dL (74-106); Potassium 4.3 mmol/L (3.5-5.1); Sodium Level 136 mmol/L (136-145); Thyroid Stim Hormone (TSH) 2.29 uIU/mL (0.358-3.74)
[2019-01-06] VITALS (9 sets, daily range): BP systolic 73–160; BP diastolic 46–80; PULSE 59–70; RESP 14–18; TEMP 35.9–36.7; O2SAT 93–98; BMI 24.0
[2019-01-06 09:40] LABS: Bedside Glucose 137 mg/dL (70-110)
[2019-01-06] MEDS: Cefazolin 2 GM in 0.9% Normal Saline 100 ML IV (10:04)
--- NOTE | 2019-01-06 10:48 | DCINST_ITS ---
Discharge Activity: Return to Normal Activity May shower in (days): 1 Call your doctor if your incision/area has: Continuous Slow Oozing, Sudden Increased Bleeding, Increased Pain/ Swelling, Increased Redness, Foul Smelling Discharge, Swelling at the incision site Suture Line Care: Avoid Pulling/Pushing, Avoid Pinching/Bending Instructions: Transurethral Resection of the Prostate (TURP): Home Recovery Allergies/Adverse Reactions: Allergies poison shay extract Allergy (Verified 12/30/18 14:10) Rash codeine Adverse Reaction (Verified 12/30/18 14:10) Vomiting seasonal Allergy (Uncoded 12/30/18 14:10) Other Medications to take at Discharge Levothyroxine [Synthroid] 50 mcg PO DAILY 12/01/13 Zolpidem Tartrate 5 mg PO QHS 12/01/13 Aspirin [Aspirin, Baby] 81 mg PO DAILY@0800 06/12/15 Metformin HCl [Metformin HCl ER] 500 mg PO DAILY 06/12/15 Multivitamin [Daily Multiple Vitamin] 1 ea PO DAILY 06/12/15 Amiodarone HCl 200 mg PO DAILY 12/30/18 Apixaban [Eliquis] 5 mg PO BID 12/30/18 Finasteride [Proscar] 5 mg PO DAILY 12/30/18 Lisinopril [Prinivil] 10 mg PO BID 12/30/18 Metoprolol Tartrate 25 mg PO BID 12/30/18 pravastatin 20 mg tablet 20 mg PO QHS #90 tab 01/03/19 Ciprofloxacin [Cipro] 500 mg PO BID #20 tab 01/06/19 The following prescriptions were given: Ciprofloxacin [Cipro] 500 mg PO BID #20 tab Prescription Printed Primary Care Physician: Delfino Carrizales DO [Primary Care Provider] - Test Results: Test results from this visit will be discussed in further detail at your follow- up appointment, if applicable. Please Follow Up With: Sony Nguyen MD When: in 2 weeks, please call to make an appointment.
--- NOTE | 2019-01-06 10:49 | PCM.OPRPT ---
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 Post-Operative Diagnosis: Same Surgery/Procedure Performed:: Transurethral resection of the prostate Description of Surgical Findings:: 83-year-old male taken back to the operating room at the smooth induction of general anesthesia he was placed in dorsolithotomy position, I dilated the urethra with a 14 the 22 [place] sounds I then went in with a 24 [place] noncontinuous flow resectoscope once inside the channel identified the verumontanum he had a rigid tissue in front of the bladder neck and then a significant growth of tissue coming from the roof of the bladder there is causing obstruction I switched over to the button and vaporized the floor and then went on the top part where the most of the obstructive tissue was and vaporized the tissue to open up really nicely once this was all vaporized nicely had a nice wide open channel from the sphincter into the bladder he did have a fairly distended trabeculated bladder, 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 Type of Anesthesia:: General Drains: 22fr - Admit VTE Documentation VTE Present on Admission: No VTE Mechan Device Prophylaxis: SCD's
[2019-01-06 11:06] LABS: Bedside Glucose 119 mg/dL (70-110)
--- NOTE | 2019-01-06 11:09 | SUR.PHASEI ---
urine output on bag #1 clear, no option for clear under urine output.
[2019-01-06] MEDS: 0.9% Normal Saline 1,000 ML 75 ML IV (15:18)
[2019-01-06] MEDS: Ciprofloxacin 500 MG Tablet PO (17:24)
[2019-01-06] MEDS: metFORMIN (XR) 500 MG Tablet PO (17:25)
[2019-01-06] MEDS: Lisinopril 10 MG Tablet PO (22:57)
[2019-01-06] MEDS: Docusate Sodium 100 MG Capsule 200 MG PO (22:57)
[2019-01-06] MEDS: Pravastatin 20 MG Tablet PO (22:57)
[2019-01-06] MEDS: Metoprolol Tartrate 25 MG Tablet PO (22:58)
[2019-01-06] MEDS: Zolpidem Tartrate 5 MG Tablet PO (23:56)
[2019-01-07 02:00] VITALS: BP 100/47; PULSE 59; RESP 16; TEMP 36.7; O2SAT 94
[2019-01-07] MEDS: 0.9% Normal Saline 1,000 ML 75 ML IV (04:48)
[2019-01-07] MEDS: Levothyroxine 50 MCG Tablet PO (04:49)
[2019-01-07 07:45] VITALS: BP 147/81; PULSE 60; RESP 18; TEMP 36.6; O2SAT 94
[2019-01-07] MEDS: Acetaminophen 325 MG Tablet PO (07:48)
[2019-01-07 07:49] VITALS: PULSE 60
[2019-01-07] MEDS: Metoprolol Tartrate 25 MG Tablet PO (07:49)
[2019-01-07] MEDS: Amiodarone 200 MG Tablet PO (07:49)
[2019-01-07] MEDS: Lisinopril 10 MG Tablet PO (07:50)
[2019-01-07] MEDS: Multivitamins,Therapeutic Tablet 1 TABLET PO (07:50)
[2019-01-07] MEDS: Pantoprazole Sodium 40 MG Tablet PO (07:50)
[2019-01-07] MEDS: Finasteride 5 MG Tablet PO (07:51)
[2019-01-07] MEDS: Ciprofloxacin 500 MG Tablet PO (07:51)
[2019-01-07 13:55] VITALS: BP 136/74; PULSE 60; RESP 18; TEMP 36.9; O2SAT 97
--- NOTE | 2019-01-09 07:32 | PCM.HP.BLA ---
History and Physical Date of Admission: 01/06/19 Patient returns, 83-year-old male with a history of BPH obstruction developed urinary retention and is on self intermittent catheterization comes in today for a follow-up visitation and proceeded with a cystoscopy today. He reports having some difficulty catheterizing but is able to empty his bladder with a catheter not able to urinate all. ALLERGIES: Codeine MEDICATIONS: Cipro Amiodarone Hcl Aspir 81 Eliquis 5 mg tablet Finasteride Levothyroxine Sodium Lisinopril Metoprolol Tartrate Pravastatin Sodium PSH: None NON- PSH: Colonoscopy Heart Pacemaker/ICD Knee Surgery (Unspecified) Pneumococcal Vaccine Admin PMH: Benign prostatic hyperplasia with lower urinary tract symptoms Dysuria Frequency of micturition Nodular prostate with lower urinary tract symptoms Other retention of urine Personal history of urinary calculi Unspecified urinary incontinence NON- PMH: [place] heart disease of [place] coronary artery w/o ang pctrs Emphysema, unspecified Essential (primary) hypertension Heart disease, unspecified Hypothyroidism, unspecified Type 2 diabetes mellitus without complications Immunizations: None FAMILY HISTORY: None SOCIAL HISTORY: Marital Status: Preferred Language: [place]; Race: White Current Smoking Status: Patient does not smoke anymore. Tobacco Use Assessment Completed: Used Tobacco in last 30 days? Smoking cessation counseling was provided. Does not use smokeless tobacco. Does not drink anymore. Drinks 3 caffeinated drinks per day. REVIEW OF SYSTEMS: Constitutional: Patient denies fever, chills, weight loss, and weight gain. Eyes: Patient reports cataracts. Patient denies blurry vision and vision problems. Ears, Nose, Mouth, Throat: Patient reports hearing loss. Patient denies sinus infections, nasal stuffiness, and sleep apnea. Cardiovascular: Patient reports pacemaker/defibrillator. Patient denies chest pains, swollen ankles, and irregular heartbeat. Respiratory: Patient denies shortness of breath, wheezing, use oxygen, cpap at night., and copd. Gastrointestinal: Patient denies nausea/vomiting, abdominal pain, and change in bowels. Genitourinary: Patient reports frequent urination, urinary retention, leakage of urine, frequent urinary tract infections, difficulty starting stream, and weak stream. Patient denies get up at night to void, blood in urine, history of stones, and bedwetting. Musculoskeletal: Patient reports sore muscles and back pain. Patient denies gout and arthritis. Integumentary/Skin: Patient denies rash, persistent itching, and skin cancer history. Neurological: Patient denies numbness, dizziness, stroke/tia, and history of falling/unsteadiness.. Hematologic/Lymphatic: Patient denies swollen glands, abnormal bleeding, transfusion history, and blood clots/dvt/pulmonary embolism. Notes: Reviewed previous review of systems 12/06/2018. No changes. VITAL SIGNS: 12/20/2018 04:01 PM Weight 148 lb / 67.13 kg Height 69 in / 175.26 cm BP 136/80 mmHg BMI 21.9 kg/m? - BMI Counseling was provided. PHYSICAL EXAMINATION: Anus and Perineum: No hemorrhoids. No anal stenosis. No rectal fissure, no anal fissure. No edema, no dimple, no perineal tenderness, no anal tenderness. Scrotum: No lesions. No edema. No cysts. No warts. Epididymides: Right: no spermatocele, no masses, no cysts, no tenderness, no induration, no enlargement. Left: no spermatocele, no masses, no cysts, no tenderness, no induration, no enlargement. Testes: No tenderness, no swelling, no enlargement left testes. No tenderness, no swelling, no enlargement right testes. Normal location left testes. Normal location right testes. No mass, no cyst, no varicocele, no hydrocele left testes. No mass, no cyst, no varicocele, no hydrocele right testes. Urethral Meatus: Normal size. No lesion, no wart, no discharge, no polyp. Normal location. Penis: Circumcised, no warts, no cracks. No dorsal Peyronie's plaques, no left corporal Peyronie's plaques, no right corporal Peyronie's plaques, no scarring, no warts. No balanitis, no meatal stenosis. Prostate: Prostate about 40 grams. Left lobe normal consistency, right lobe normal consistency. Symmetrical lobes. No prostate nodule. Left lobe no tenderness, right lobe no tenderness. Seminal Vesicles: Nonpalpable. Sphincter Tone: Normal sphincter. No rectal tenderness. No rectal mass. MULTI-SYSTEM PHYSICAL EXAMINATION: Constitutional: Well-nourished. No physical deformities. Normally developed. Good grooming. Neck: Neck symmetrical, not swollen. Normal tracheal position. Respiratory: No labored breathing, no use of accessory muscles. Cardiovascular: Normal temperature, normal extremity pulses, no swelling, no varicosities. Lymphatic: No enlargement of neck, axillae, groin. Skin: No paleness, no jaundice, no cyanosis. No lesion, no ulcer, no rash. Neurologic / Psychiatric: Oriented to time, oriented to place, oriented to person. No depression, no anxiety, no agitation. Gastrointestinal: No mass, no tenderness, no rigidity, non obese abdomen. Eyes: Normal conjunctivae. Normal eyelids. Ears, Nose, Mouth, and Throat: Left ear no scars, no lesions, no masses. Right ear no scars, no lesions, no masses. Nose no scars, no lesions, no masses. Normal hearing. Normal lips. Musculoskeletal: Normal gait and station of head and neck. PAST DATA REVIEWED: Source Of History: Patient PROCEDURES: Flexible Cystoscopy - 60276 Risks, benefits, and some of the potential complications of the procedure were discussed at length with the patient including infection, bleeding, voiding discomfort, urinary retention, fever, chills, sepsis, and others. All questions were answered. Informed consent was obtained. Antibiotic prophylaxis was given. Sterile technique and intraurethral analgesia were used. Meatus: Normal size. Normal location. Normal condition. Urethra: No strictures. External Sphincter: Normal. Verumontanum: Normal. Prostate: Obstructing. Moderate hyperplasia. Bladder Neck: Non-obstructing. Ureteral Orifices: Normal location. Normal size. Normal shape. Effluxed clear urine. Bladder: Severe trabeculation. Normal mucosa. No stones. ASSESSMENT: ICD-10 Details 1 : Benign prostatic hyperplasia with lower urinary tract symptoms - N40.1 2 Other retention of urine - R33.8 3 Nodular prostate with lower urinary tract symptoms - N40.3 PLAN: Document Letter(s): Created for Patient: Clinical Summary Notes: 83-year-old male on cystoscopy son have significant BPH with obstruction and significant blockage, bladder is fairly heavily trabeculated but appears that fairly good muscle most likely a TURP will be effective in alleviating obstruction and regaining regular voiding function. Certainly let the patient know it's possible the surgery will fail and he'll need to do a lifetime of catheterization but were willing to proceed with the TURP and he was told his blood thinners before surgery.
== END 2019-01-07 16:30 | disposition home or self-care (01) ==
LOC: SDC 08:32 → AC 08:32 → MS3 08:38
PROVIDERS: Anesthesiology; Family Provider Family Medicine; PCP Family Medicine; Referring Provider Urology; Visit Provider Urology
PROC: (CPT 52601; principal; 2019-01-06 09:45)
DX: N40.1 Benign prostatic hyperplasia with lower urinary tract symptoms (principal); N13.8 Other obstructive and reflux uropathy; R33.8 Other retention of urine; E03.9 Hypothyroidism, unspecified; E11.9 Type 2 diabetes mellitus without complications; I10 Essential (primary) hypertension; J43.9 Emphysema, unspecified; E78.00 Pure hypercholesterolemia, unspecified; Z79.899 Other long term (current) drug therapy; Z79.01 Long term (current) use of anticoagulants; Z79.82 Long term (current) use of aspirin; I25.10 Atherosclerotic heart disease of native coronary artery without angina pectoris; I48.0 Paroxysmal atrial fibrillation; Z87.891 Personal history of nicotine dependence
CPT/HCPCS: 52601; 80048; 82962; 83036; 84443; 85027; 93005; J7030; J7120; J2405

== ENCOUNTER → 2019-01-31 | Outpatient (CLI) | payer MEDICARE, SELFPAY ==
[2019-01-27 13:20] VITALS: BMI 22.8
[2019-01-31 12:13] LABS: Absolute Lymphocyte Count 1.07 X10^3/uL (0.83-4.51); Absolute Neutrophil Count 4.2 X10^3/uL (2.0-7.7); Basophil# 0.08 X10^3/uL; Basophil% 1.3 % (0-1); Eosinophil# 0.19 X10^3/uL; Eosinophils% 3.1 % (0-5); Hematocrit 38.9 % (40-54); Hemoglobin 12.4 g/dL (13.0-16.5); Lymphocyte # 1.07 X10^3/ul (4.0); Lymphocyte % 17.4 % (19-41); Mean Corp Hgb Conc 31.9 g/dL (32-36); Mean Corpuscular Hgb 29.9 pg (27.0-32.0); Mean Corpuscular Volume 93.7 fL (80-94); Mean Platelet Vol. 10.6 fl (6.2-12.0); Monocyte# 0.61 X10^3/uL; Monocyte% 9.9 % (0-10); NRBC Flagged by Analyzer 0 % (0-5); Neutrophil # 4.17 X10^3/uL (2.7-7.7); Neutrophil % 67.8 % (47-70); Platelet Count 216 K/mm3 (150-450); RBC Distribution Width CV 13.8 % (11.6-14.6); RBC Distribution Width SD 47.2 fl (35.1-43.9); Red Blood Count 4.15 M/mm3 (4.6-6.2); White Blood Count 6.2 K/mm3 (4.4-11.0)
[2019-01-31 12:34] LABS: AST(SGOT) 22 U/L (15-37); Alanine Aminotransfer ALT/SGPT 35 U/L (16-61); Albumin, Serum 3.5 g/dL (3.2-5.0); Alkaline Phosphatase 95 U/L (45-117); Anion Gap 8 (5-15); BUN 18 mg/dL (7-18); BUN/Creat Ratio 17.1 RATIO (10-20); Calcium,Total 9.3 mg/dL (8.5-10.1); Chloride 106 mmol/L (98-107); Cholesterol 128 mg/dL (200); Creatinine, Serum 1.05 mg/dL (0.70-1.30); EST Glomerular Filtration Rate 71 mL/min (>60); Est Glom Filt Rate - Afr Amer 86 mL/min (>60); Globulin 3.4 g/dL (2.2-4.2); Glucose 126 mg/dL (74-106); High Density Lipoprotein 50 mg/dL; Potassium 4.5 mmol/L (3.5-5.1); Protein, Total 6.9 g/dL (6.4-8.2); Sodium Level 138 mmol/L (136-145); T4 Free Direct 1.19 ng/dL (0.76-1.46); Triglycerides 97 mg/dL; Very Low Density Lipoprotein 19 mg/dL (5-40)
[2019-01-31 12:38] LABS: Hemoglobin A1c 6.9 % (4.2-6.3)
[2019-01-31 15:53] LABS: Microalbumin:Creatinine Ratio 164.9 mg/g CRE (<30 mg/g CRE)
== END | disposition home or self-care (01) ==
LOC: BFHLAB 08:08
PROVIDERS: Family Provider Family Medicine; PCP Family Medicine; Visit Provider Family Medicine
DX: E11.40 Type 2 diabetes mellitus with diabetic neuropathy, unspecified (principal); I10 Essential (primary) hypertension; I25.10 Atherosclerotic heart disease of native coronary artery without angina pectoris; E03.9 Hypothyroidism, unspecified
CPT/HCPCS: 36415; 80053; 80061; 82043; 82570; 83036; 84439; 84443; 85025

== ENCOUNTER 2019-02-04 11:54 | Emergency (ER) | payer MEDICARE, SELFPAY ==
[2019-01-27 13:20] VITALS: BMI 22.8
[2019-02-04 11:55] VITALS: BP 143/66; PULSE 60; RESP 17; TEMP 36.4; O2SAT 96; BMI 21.1
[2019-02-04] MEDS: Oxymetazoline 0.05% 1 SPRAY SPRAY.BTL NASAL (12:45)
--- NOTE | 2019-02-04 12:54 | ED.VIS.GEN ---
History of Present Illness Chief Complaint: Nosebleed Narrative: Patient presenting secondary to epistaxis. Patient is on Eliquis, states that today at about 9 AM 3 hours prior to arrival he developed a nosebleed. Patient states that it is been refractory to pressure. He denies any injuries to his nose. Bleeding is moderate. Review of systems otherwise negative. Past Medical History - Allergies and Home Meds Allergies/Adverse Reactions: Allergies poison shay extract Allergy (Verified 02/04/19 11:55) Rash codeine Adverse Reaction (Verified 02/04/19 11:55) Vomiting seasonal Allergy (Uncoded 02/04/19 11:55) Other Primary Care Physician: Delfino Carrizales DO [Primary Care Provider] - Past Medical History: - - Anticoagulation with Eliquis Surgical History: cataract, total knee arthroplasty - Right side, - - Left carotid endarterectomy, coronary stent in 1999 Smoking Status: Former smoker - Family History Maternal Family History: Family History (Last Reviewed 01/27/19 @ 13:41 by Andrew Bradley MD) Mother Hypertension Family History: Reports: Heart Disease, Stroke Paternal Family History: Family History (Last Reviewed 01/27/19 @ 13:41 by Andrew Bradley MD) Mother Hypertension Family History: Reports: Cancer Review of Systems All systems negative except as indicated ENT: Reports: - - Nosebleed Respiratory: Denies: Dyspnea, Cough Physical Exam Vital Signs/Narrative: Vital Signs Temp Pulse Resp BP Pulse Ox 02/04/19 11:55 97.6 F L 60 17 143/66 H 96 Inital Vital Signs reviewed: Yes General: Well nourished, Well developed, No Acute Distress Head: Normocephalic, Atraumatic Eyes: Perrl, EOMI ENT: - - Active bleeding from the left nostril from what appears to be a bleeding nasal septal vessel with pulsatile bleeding Neck: Supple, Nontender Cardiovascular: Regular rate Respiratory: No distress Abdomen: Soft, Nontender, Nondistended, Normal bowel sounds Extremities: Nontender, No edema Skin: Normal color, No rash Neurological: Alert, Oriented x3, Cranial nerves II-XII grossly intact, Normal Strength, Normal Sensation Psychological: Normal affect, Normal Mood Diagnostic/Tx/Re-eval - Medical Decision Making Patient presented secondary to epistaxis. As the patient's bleeding was rather brisk and is anticoagulated I believe the packing was indicated. Nasal packing was performed as noted in the procedure note. Patient was observed in the emergency department for an hour and did not have any repeat bleeding. Patient will be discharged with Keflex and follow-up with your nose and throat. Procedures Procedure(s): Epistaxis management: Direct pressure was placed over the patient's nose via nasal clamps. Patient was then asked to expel clots from his left nostril by blowing. Afrin was sprayed in the patient's left nostril and I was able to identify bleeding nasal septal vessel that was pulsatile. 5.5 cm anterior Rhino Rocket was placed and then was inflated with about 5 cc of air. Patient tolerated this well. Patient did not have repeat bleeding. ED Disposition - Plan for ED Patient: Disposition: Home or Assisted Living Diagnosis: Epistaxis Instructions: Nosebleed Prescriptions: Cephalexin [Keflex] 500 mg PO Q12 #14 capsule Referrals: Tray Mensah MD [STAFF PHYSICIAN] - (3 days)
== END 2019-02-04 13:20 | disposition home or self-care (01) ==
PROVIDERS: Emergency Provider Emergency Medicine; Family Provider Family Medicine; PCP Family Medicine
DX: R04.0 Epistaxis (principal); Z79.01 Long term (current) use of anticoagulants; Z87.891 Personal history of nicotine dependence; Z95.5 Presence of coronary angioplasty implant and graft
CPT/HCPCS: 30901; 99282

== ENCOUNTER → 2020-01-02 11:11 | Outpatient (CLI) | payer MEDICARE, SELFPAY ==
[2019-08-07 10:56] VITALS: BMI 22.1
[2020-01-02 15:01] LABS: Absolute Lymphocyte Count 0.97 X10^3/uL (0.83-4.51); Absolute Neutrophil Count 3.7 X10^3/uL (2.0-7.7); Basophil# 0.05 X10^3/uL; Basophil% 0.9 % (0-1); Eosinophil# 0.11 X10^3/uL; Eosinophils% 2.1 % (0-5); Hematocrit 33.7 % (40-54); Hemoglobin 10.8 g/dL (13.0-16.5); Lymphocyte # 0.97 X10^3/ul (4.0); Lymphocyte % 18.2 % (19-41); Mean Corpuscular Hgb 30.6 pg (27.0-32.0); Mean Corpuscular Volume 95.5 fL (80-94); Mean Platelet Vol. 10.2 fl (6.2-12.0); Monocyte# 0.48 X10^3/uL; NRBC Flagged by Analyzer 0 % (0-5); Neutrophil # 3.67 X10^3/uL (2.7-7.7); Neutrophil % 68.9 % (47-70); Platelet Count 229 K/mm3 (150-450); RBC Distribution Width CV 15.3 % (11.6-14.6); RBC Distribution Width SD 52.4 fl (35.1-43.9); Red Blood Count 3.53 M/mm3 (4.6-6.2); White Blood Count 5.3 K/mm3 (4.4-11.0)
[2020-01-02 15:22] LABS: Hemoglobin A1c 6.4 % (3.8-5.6)
[2020-01-02 15:27] LABS: ALB/GLOB Ratio 1.1 RATIO (0.9-2.4); AST(SGOT) 26 U/L (15-37); Alanine Aminotransfer ALT/SGPT 39 U/L (16-61); Albumin, Serum 3.6 g/dL (3.2-5.0); Alkaline Phosphatase 93 U/L (45-117); Anion Gap 3 (5-15); BUN 20 mg/dL (7-18); BUN/Creat Ratio 20.3 RATIO (10-20); Calcium,Total 9.3 mg/dL (8.5-10.1); Chloride 104 mmol/L (98-107); Cholesterol 129 mg/dL (200); Creatinine, Serum 0.98 mg/dL (0.70-1.30); EST Glomerular Filtration Rate 77 mL/min (>60); Est Glom Filt Rate - Afr Amer 93 mL/min (>60); Globulin 3.2 g/dL (2.2-4.2); Glucose 180 mg/dL (74-106); High Density Lipoprotein 41 mg/dL; Potassium 5.5 mmol/L (3.5-5.1); Protein, Total 6.8 g/dL (6.4-8.2); Sodium Level 133 mmol/L (136-145); Thyroid Stim Hormone (TSH) 3.65 uIU/mL (0.358-3.74); Triglycerides 176 mg/dL; Very Low Density Lipoprotein 35 mg/dL (5-40)
== END ==
PROVIDERS: PCP Family Medicine; Visit Provider Family Medicine
DX: E11.40 Type 2 diabetes mellitus with diabetic neuropathy, unspecified (principal); E03.9 Hypothyroidism, unspecified; E78.5 Hyperlipidemia, unspecified; I25.10 Atherosclerotic heart disease of native coronary artery without angina pectoris
CPT/HCPCS: 36415; 80053; 80061; 83036; 84443; 85025

== ENCOUNTER 2020-05-17 09:04 | Day surgery (SDC) | payer MEDICARE, SELFPAY ==
[2020-04-02 14:25] VITALS: BMI 22.3
--- NOTE | 2020-05-16 23:57 | HP.PCM_ITS ---
History and Physical Date of Admission: 05/17/20 HISTORY OF PRESENT ILLNESS Patient is an 84 year old male who presents for evaluation of a lesion on his right upper lip at the philtral column near the kathryn border. He also has concerns about a lesion on his right ear at the antitragus. During his office visit, his initial blood pressure was 210/96. He denies headaches, visual problems, or nausea. His Utilization Management Nurse manages his hypertension medications, and he has an appointment with him next week. For his lesions that he has concerns about, he denies fever. He denies trauma. He denies bleeding. He denies recent infection. He has a history of diabetes mellitus. His last HgbA1c from01/02/20 was 6.4. He presents at this time for further evaluation and treatment. PAST MEDICAL HISTORY Neoplasm of skin of ear Neoplasm of skin of lip Essential (primary) hypertension Symptomatic bradycardia Left carotid artery stenosis Paroxysmal atrial fibrillation Atherosclerosis of coronary artery of [place] heart without angina pectoris Hyperlipidemia Back problem Cataracts, bilateral Family history of prostate problems Hearing problem Neuropathy Self-catheterizes urinary bladder COPD (chronic obstructive pulmonary disease) Hepatic cyst Obstructive sleep apnea Osteoarthritis TIA (transient ischemic attack) Type II diabetes mellitus Vertebral artery stenosis Elevated liver enzymes PAST SURGICAL HISTORY cardiac pacemaker coronary artery stent placement prostate surgery left-sided carotid endarterectomy left heart catheterization right knee joint replacement ALLERGIES poison shay extract codeine MEDICATIONS Zolpidem Tartrate Aspirin [Aspirin, Baby] Metformin HCl [Metformin HCl ER] amiodarone loratadine metoprolol tartrate apixaban pravastatin vitamins A,C,A-xrbw-npfogh fluorouracil 5 % topical cream lisinopril FAMILY HISTORY Mother - Hypertension, History of blood clots Uncle - Heart disease, CVA (cerebral vascular accident) Uncle - Heart disease Grandmother - CVA (cerebral vascular accident) SOCIAL HISTORY Smoking Status: Former smoker how long ago did patient quit smokin alcohol intake: former year quit: 1999 substance use type: does not use REVIEW OF SYSTEMS General - Denies fever, fatigue, and weight loss. Eyes - Denies glaucoma. History of cataracts and vision problems. Has hearing lo ss, wears hearing aids. ENT - Denies nasal congestion and sore throat. History of seasonal allergies. Endocrine - Denies excessive thirst and urination. Type 2 Diabetes Mellitus. Skin - Has a lesion on his right upper lip and right ear at the antitragus. Musculoskeletal - Denies joint pain, joint stiffness, weakness of muscles and joints. History of back pain, and arthritis. Neuro - Denies headaches. Cardiovascular - Denies chest pain, fatigue, and shortness of breath with exertion. 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). Carotid endarterectomy. Vascular disease. Psych - Denies anxiety and depression. Respiratory - Denies chronic cough and shortness of breath. Gastrointestinal - Denies nausea, vomiting, diarrhea, and constipation. Hematologic - Denies abnormal bruising and bleeding. Genitourinary - Denies hematuria and urinary frequency. Has prostrate problems and has had surgery on his prostrate and needs to self cath 3 times daily. PHYSICAL EXAMINATION General - Alert and oriented. HEENT - PERRL. EOMI. Throat is clear. On the right upper lip at the philtral column and near the kathryn border that is a crusty lesion that measures 6 mm. Has irregular borders. Slightly raised in configuration. No ulceration. Lesion is nontender. The length of the upper lip is 6.5 cm. On the right ear at the antitragus is a lesion that measures 1 cm lesion. Slightly raised in configuration. Has irregular borders. No ulceration. Lesion is nontender. Neck - Supple and non-tender. No cervical adenopathy. No suspicious lesions noted. Lungs- Clear to auscultation. Heart - Regular rate and rhythm. Abdomen - Soft and non distended. Extremities - FROM. No axillary adenopathy. Radial pulses are palpable. No suspicious lesions noted. Neuro - CN II-XII grossly intact. Psych - Normal mood and affect. ASSESSMENT 1. 6 mm lesion right upper lip at philtral column near the kathryn border. 2. 1 cm lesion right ear at antitragus. 3. Diabetes mellitus. 4. Former smoker. PLAN Recommend excision of these lesions right upper lip ant philtral column near the kathryn border and the right ear at antitragus and send them to Pathology for analysis to rule out carcinoma. If carcinoma is present then further excision will be done with local skin flaps and lip flaps and skin graft reconstruction. Surgery will be done on an outpatient basis under local anesthesia and IV sedation. His latest HgbA1c from 01/02/20 was 6.4. For elective surgeries, it needs to be less than 8. Patient was informed of the risks and complications of the procedure including alternatives to surgery. These were discussed with the patient personally. Patient voices understanding and wishes to proceed. Some of the risks and complications were included in a form from the [employer] [employer]. For his high blood pressure today, his Utilization Management Nurse's office was called today. His Lisinopril was increased to 20 mg. He has an appointment with them in a week. We discussed the current risks associated with COVID-19. While it is understood that there is a community spread of COVID-19, the risk of yajaira COVID-19 while at [facility] ([facility]) is very low; however, the risk cannot be completely mitigated because of the community spread of the disease. We discussed in detail the risk of exposure to and/or potential harm posed by the COVID-19 virus with having a surgery/procedure at this time versus the risk of delaying the surgery/procedure. It is not possible to know either the risk of delaying the surgery or procedure or chance of getting an infection with perfect accuracy, but a joint decision was made to proceed at this time with the scheduled surgery/procedure as indicated on the consent form. Patient was notified that we will need to comply with any screening or testing [facility] wishes to perform or that surgery may be delayed for any positive results. Discussed with the patient that I was tested for COVID-19 on 11/30/19 which was negative and on 12/14/19 which was negative and on 12/28/19 which was negative and on 01/11/20 which was negative and on 01/25/20 which was negative and on 02/15/20 which was negative and on 03/07/20 which was negative and on 04/11/20 which was negative and on 05/02/20 which was negative. My testing regimen at this time is to be COVID-19 tested every 2 weeks or so. Procedure Criteria Procedure Type: Elective COVID Risk Discussion: The surgeon/proceduralist and patient have discussed in detail the risk of exposure to and/or potential harm posed by the COVID-19 virus with having a leon rgery/procedure at this time versus the risk of delaying the surgery/procedure. It is not possible to know either the risk of delaying the surgery or procedure or chance of getting an infection with perfect accuracy, but a joint decision was made between the patient and the surgeon/proceduralist to proceed at this time with the scheduled surgery/procedure as indicated on the consent form.
[2020-05-17] VITALS (7 sets, daily range): BP systolic 131–167; BP diastolic 64–92; PULSE 59–60; RESP 16; TEMP 35.8–36.3; O2SAT 92–100; BMI 24.0
--- NOTE | 2020-05-17 | LES_PTH ---
PATIENT: LISA BATRES LOC: [facility] U#:[id number] AGE/SX: 85/M ROOM: RE05/17/[address]: Dr. Bucky Pace MD : [id number] BED: DIS: 05/17/2020 SPEC #: [id number] RECD: 05/17/20 11:11 STATUS: PRUDENCIOAngela BRET #: [id number] SUSHANT: 05/17/20 00:[address]: Bucky Pace DEPT: SURGICAL PATHOLOGY RECD BY: Shakira Rodriguez ENTERED: 05/17/20 12:08 SP TYPE: Lesion OTHR DR: Dr. Delfino Carrizales DO Tissues: A - Skin of external ear, NOS B - Skin of lip, NOS C - Skin of lip, NOS D - Skin of external ear, NOS Procedures: Frozen Section (charge) Surgery Specimen Level IV HEADER OPERATION: Excision lesion right upper lip at philtral column PRE-OP DIAGNOSIS: 6 mm lesion right upper lip at philtral column near kathryn border; 1 cm lesion right ear at antitragus TISSUE SUBMITTED: A - 1 cm lesion right ear at antitragus, FS, B - 6 mm lesion right upper lip at philtral column near kathryn border, FS, C - Basal cell carcinoma, right upper lip at philtral column near kathryn border, suture at 12 o'clock, D - Actinic keratosis right ear at antitragus, suture at 12 o'clock FROZEN SECTION DIAGNOSIS A. Skin lesion of right ear, shave biopsy: Actinic change, parakeratosis and solar elastosis. No evidence of carcinoma. B. Skin lesion of right upper lip, shave biopsy: Basal cell carcinoma. AM:owen 05/17/20 Case has been reviewed in consultation with Dr. Bah who concurs with the above diagnosis. IDC:[email or web address] MICROSCOPIC DIAGNOSIS A. Skin lesion right ear, shave biopsy: Actinic keratosis and solar elastosis. Negative for carcinoma. B. Skin lesion right upper lip, shave biopsy: Basal cell carcinoma, nodular type with focal ulceration and associated inflammation. C. Basal cell carcinoma right upper lip at philtral column near kathryn border, excisional biopsy: Focal basal cell carcinoma, completely excised. Actinic keratosis and solar elastosis. Focal ulceration consistent with site of specimen B. D. Actinic keratosis right ear at antitragus, excisional biopsy: Actinic keratosis and solar elastosis. Negative for carcinoma. Focal ulceration consistent with site of specimen A. SAKSHI:owen 05/21/20 MICROSCOPIC DESCRIPTION Slides are reviewed. GROSS DESCRIPTION A - Received fresh for frozen section consultation labeled with the patient's name is a specimen designated right ear lesion. The specimen consists of a light serrato shave biopsy of skin measuring 1 x 1 x <0.1 cm. The specimen is trisected and totally submitted in one cassette for frozen section consultation. / AM: 05/17/20 B - Received fresh for frozen section consultation labeled with the patient's name is a specimen designated right upper lip. The specimen consists of a light serrato shave biopsy of skin measuring 0.9 x 0.7 x 0.1 cm. The specimen is trisected and totally submitted in one cassette for frozen section consultation. / AM: 05/17/20 C - Received in fixative is one container labeled with the patient's name and designated basal cell carcinoma, right upper lip at philtral column near kathryn border, suture at 12 o'clock. The specimen consists of an irregular piece of serrato-white skin measuring 4.8 x 1.5 cm and up to 0.5 cm in thickness. The specimen is oriented by a suture at 12 o'clock position. The specimen is inked as follows: 12 o'clock - black, 6 o'clock - blue, 3 o'clock tip - yellow and 9 o'clock tip - green. A focal area of ulceration is noted at the surface measuring 0.8 x 0.6 cm. The specimen is serially sectioned and submitted entirely in four cassettes. Cassette 1 contains the 3 and 9 o'clock tips. / SJ: 05/20/22 D - Received in fixative is one container labeled with the patient's name and designated actinic keratosis right ear at antitragus, suture at 12 o'clock. The specimen consists of a piece of serrato-white skin measuring 1.2 x 1 cm and up to 0.1 cm in thickness. The specimen is oriented by a suture at 12 o'clock. The specimen is inked as follows: 12 o'clock margin - yellow, 6 o'clock margin - green, 3 o'clock margin - black and 9 o'clock margin - blue. A focal area of ulceration is noted at the surface measuring 1 cm in greatest dimension. The entire specimen is submitted in one cassette. It will be sectioned at the time of embedding. / SJ:owen 05/20/20 TC:0 CPT: 94527 x4, 51316 x2
[2020-05-17] MEDS: Lactated Ringers 1,000 ML 100 ML IV (10:01)
[2020-05-17 10:15] LABS: Bedside Glucose 114 mg/dL (70-110)
[2020-05-17] MEDS: Lidocaine 1%/Epi 1:200 (30ml) 30 ML AMPUL (11:00)
[2020-05-17] MEDS: Mupirocin Ointment 22gm Tube 1 APPLIC (12:43)
--- NOTE | 2020-05-17 12:55 | OP.PCM_ITS ---
Report of Operation Date of Procedure: 05/17/20 Pre-Operative Diagnosis: 1. 6 mm lesion right upper lip at philtral column near the kathryn border. 2. 1 cm lesion right ear at antitragus. 3. Diabetes mellitus. 4. Former smoker. Post-Operative Diagnosis: 1. 6 mm basal cell carcinoma right upper lip at philtral column near the kathryn border. 2. 1 cm actinic keratosis right ear at antitragus. 3. Diabetes mellitus. 4. Former smoker. Surgery/Procedure Performed:: 1. Excision 6 mm basal cell carcinoma right upper lip at philtral column near the kathryn border with right perialar crescenteric advancement skin flap reconstruction (12 cm2). 2. Excision 1 cm actinic keratosis right ear at antitragus with FTSG reconstruction from right neck (1.44 cm2). Description of Surgical Findings:: Patient is an 84 year old male who presents for evaluation of a lesion on his right upper lip at the philtral column near the kathryn border. He also has concerns about a lesion on his right ear at the antitragus. During his office visit, his initial blood pressure was 210/96. He denies headaches, visual problems, or nausea. His Real Estate Assistant manages his hypertension medications, and he has an appointment with him next week. For his lesions that he has concerns about, he denies fever. He denies trauma. He denies bleeding. He denies recent infection. He has a history of diabetes mellitus. His last HgbA1c from01/02/20 was 6.4. Patient was informed of the risks and complications of the procedure including alternatives to surgery. These were discussed with the patient personally. Patient voices understanding and wishes to proceed. Some of the risks and complications were included in a form from the [place] [employer]. Frozen section right upper lip at philtral column near the kathryn border - basal cell carcinoma. Frozen section right ear at antitragus - actinic keratosis. Size of skin graft right ear at the antitragus - 1.2 x 1.2 cm. manager clinical research: None Type of Anesthesia:: General Specimen's removed: 1. Lesion right upper lip at philtral column near the kathryn border to Pathology as a frozen section. 2. Lesion right ear at antitragus to Pathology as a frozen section. 3. Basal cell carcinoma right upper lip at philtral column near the kathryn border to Pathology. 4. Actinic keratosis right ear at antitragus to Pathology. Drains: None. Estimated Blood Loss (mL): 20 ml. Description of Procedure: Patient was taken to OR in supine position and was placed under general anesthesia. The face and right neck areas were prepped and draped in the usual fashion. SCD's were placed for DVT prophylaxis. Perioperative antibiotics were given intravenously. For the procedure, I wore an N95 mask and wore proper eyewear protection. Using xylocaine with epinephrine, the lesions right upper lip at philtral column and right ear at the antitragus were infiltrated. After waiting 5 minutes for the anesthetic to take effect, I excised these lesions in an intradermal fashion and sent them to Pathology as a frozen section for analysis to rule out carcinoma. Frozen section showed the lesion right upper lip at philtral column near the kathryn border was a basal cell carcinoma and the lesion right ear at the antitragus was an actinic keratosis. Further excision was done as the basal cell carcinoma right upper lip at philtral column near the kathryn border was excised with a 3 mm margin in all directions thus making it a 1.2 cm excision. The actinic keratosis right ear at the antitragus was excised with a 1 mm margin in all directions thus making it a 1.2 cm excision. A perialar crescenteric flap was designed for excision of this basal cell carcinoma with reconstruction. Incisions were made and the basal cell carcinoma was excised at the level of the underlying muscle. I crossed the kathryn border and kathryn was included with the excision. A suture was marked at 12 oclock position for pathology orientation and it was sent to Pathology for analysis to rule out carcinoma at the margins. I elevated the right cheek and dissected a cheek flap at the level of the underlying facial musculature. The flap was dissected about 1.2 cm. The perialar crescenteric flap was easily advanced into the upper lip defect with minimal tension and minimal distortion. Hemostasis was obtained with electrocautery. The size of the defect and the size of the flap needed to close the defect was 12 cm2. The deep dermis and subcutaneous tissue was approximated with 5-0 Monocryl interrupted sutures. Care was taken to line up the kathryn border with 5-0 Monocryl interrupted suture in the deep dermis and subcutaneous tissue. The kathryn and intra-oral mucosa was approximated with 4-0 Chromic simple interrupted sutures. The skin was approximated with 6-0 Prolene simple interrupted sutures. Steri-strips were applied followed by antibiotic ointment. For the right ear at the antitragus, I excised the actinic keratosis at the level of the underlying cartilage. Perichondrium was present. The size of the defect needed for the skin graft was 1.2 x 1.2 cm or 1.44 cm2. For the lesion excised, a suture was marked at 12 oclock position for pathology orientation and it was sent to Pathology for analysis to rule out carcinoma. I marked out an ellipse of skin in the right neck and the markings were infiltrated with xylocaine and epinephrine. Incisions were made into the subcutaneous tissue. The subcutaneous tissue was removed from the undersurface of the dermis thus fashioning a full thickness skin graft. The skin graft was placed in saline. Hemostasis was obtained with electrocautery. The donor defect right neck was closed in a layered fashion with 5-0 Monocryl interrupted sutures for the deep dermis and subcutaneous tissue. The skin was approximated with 5-0 Prolene s imple running suture. Antibiotic ointment was applied followed by an Op-site dressing. The full thickness skin graft was placed on the defect right ear at the antitragus and secured to the skin edge with 5-0 Chromic interrupted sutures. 5-0 Chromic interrupted sutures were used for central quilting stabilization. Antibiotic ointment was applied followed by Xeroform gauze and a cotton ball soaked in saline and secured to the skin with 4-0 Nylon tie over stent suture dressing. Patient tolerated the procedure well and was sent to PACU in satisfactory condition. Patient will be sent home on antibiotics and pain medication. He will keep his head elevated during the initial postoperative period. Patient will followup next week on 05/22/20, for a wound check and for takedown of the skin graft dressing and for discussion of the pathology report and for removal of the sutures. Grafts/Implants Used: None. - Complications None. - Admit VTE Documentation VTE Present on Admission: No VTE Mechan Device Prophylaxis: SCD's VTE Pharm Prophylaxis ordered?: No Surgery Charges CPT - 37508 ICD-10 - C44.01, E11.9, Z87.891, L57.0 86764 L57.0, E11.9, Z87.891, C44.01 58193 L57.0, E11.9, Z87.891, C44.01
--- NOTE | 2020-05-17 13:12 | PCM.DC ---
You will use the following diet at home:: Calorie/Carbohydrate Controlled (specify 1200, 1400, etc) Discharge Activity: May Shower - in two days from the neck down. Do not get face wet in the shower until the right ear graft dressing is removed in the office., - - keep head elevated. no heavy lifting. May shower in (days): 2 - from the neck down. Ice area for (Minutes): 5 - as needed for facial swelling. Lifting Restrictions: 10 lbs. Keep extremity elevated above heart level: - - elevate head. Call your doctor if your incision/area has: Continuous Slow Oozing, Sudden Increased Bleeding, Increased Pain/ Swelling, Increased Redness, Foul Smelling Discharge, Swelling at the incision site Call your doctor if you observe: Fever of 101 or Higher, Coldness, Increased Pain, Shortness of breath, Chest pain, Calf discomfort, Uncontrolled pain Suture Line Care: - - apply antibiotic ointment daily to right upper lip suture line and right neck suture line. Change Dressing in (Days):: 5 - will change skin graft dressing right ear in office Cleanse incision/area with: - - may shower in two days from the neck down. may get face wet in the shower after the skin graft dressing right ear is removed in office. Allergies/Adverse Reactions: Allergies poison shay extract Allergy (Verified 05/17/20 09:35) Rash codeine Adverse Reaction (Verified 05/17/20 09:35) Vomiting seasonal Allergy (Uncoded 05/17/20 09:35) Other Medications to take at Discharge Zolpidem Tartrate 5 mg PO QHS 12/01/13 Metformin HCl [Metformin HCl ER] 500 mg PO DAILY 06/12/15 loratadine 10 mg tablet 10 mg PO DAILY 08/07/19 metoprolol tartrate 25 mg tablet 25 mg PO BID #180 tab 08/07/19 pravastatin 20 mg tablet 20 mg PO QHS #90 tab 10/25/19 fluorouracil 5 % topical cream 1 applic TOPICAL BID 03/06/20 amiodarone 200 mg tablet 200 mg PO DAILY #90 tab 04/02/20 amlodipine 5 mg tablet 5 mg PO DAILY #90 tab 04/02/20 lisinopril 10 mg tablet 10 mg PO BID tab 04/02/20 Vit A/Vit C/Vit E/Zinc/Copper [Preservision Areds Softgel] 1 ea PO BID 05/10/20 Apixaban [Eliquis] 5 mg PO BID #180 tab 05/17/20 Clindamycin HCl [Cleocin] 300 mg PO TID #15 cap 05/17/20 Lactobacillus Acidophilus/Fos [Acidophilus Probiotic Tablet] 1 ea PO BID #20 tab 05/17/20 Oxycodone HCl/Acetaminophen [Percocet 5/325] 1 tablet PO Q6H PRN PRN 7 Days #28 tablet 05/17/20 The following prescriptions were given: Lactobacillus Acidophilus/Fos [Acidophilus Probiotic Tablet] 1 ea PO BID #20 tab Transmission Status: Pending to [address] Clindamycin HCl [Cleocin] 300 mg PO TID #15 cap Transmission Status: Pending to [address] Oxycodone HCl/Acetaminophen [Percocet 5/325] 1 tablet PO Q6H PRN PRN 7 Days #28 tablet PRN Reason: Pain Score 6-10 Transmission Status: Received by [address] Primary Care Physician: Delfino Carrizales DO [Primary Care Provider] - Test Results: Test results from this visit will be discussed in further detail at your follow-up appointment, if applicable. Please Follow Up With: Bucky Pace MD When: wednesday05/22/20. call [phone] for appt. Proposed Discharge Date: 05/17/20
[2020-05-17 14:10] LABS: Bedside Glucose 111 mg/dL (70-110)
== END 2020-05-17 15:34 | disposition home or self-care (01) ==
LOC: SDC 09:05 → AC 09:05
PROVIDERS: PCP Family Medicine; Referring Provider Surgery; Visit Provider Surgery
PROC: (CPT 11441; principal; 2020-05-17 10:35)
DX: C44.01 Basal cell carcinoma of skin of lip (principal); L57.0 Actinic keratosis; Z20.828 Contact with and (suspected) exposure to other viral communicable diseases; I10 Essential (primary) hypertension; I65.22 Occlusion and stenosis of left carotid artery; I48.0 Paroxysmal atrial fibrillation; I25.10 Atherosclerotic heart disease of native coronary artery without angina pectoris; E11.40 Type 2 diabetes mellitus with diabetic neuropathy, unspecified; J44.9 Chronic obstructive pulmonary disease, unspecified; G47.33 Obstructive sleep apnea (adult) (pediatric); M19.90 Unspecified osteoarthritis, unspecified site; E78.00 Pure hypercholesterolemia, unspecified; Z86.73 Personal history of transient ischemic attack (TIA), and cerebral infarction without residual deficits; Z95.5 Presence of coronary angioplasty implant and graft; Z95.0 Presence of cardiac pacemaker; Z79.01 Long term (current) use of anticoagulants; Z79.82 Long term (current) use of aspirin; Z79.84 Long term (current) use of oral hypoglycemic drugs; Z79.899 Other long term (current) drug therapy; Z87.891 Personal history of nicotine dependence
CPT/HCPCS: 00300; 11441; 14061; 15260; 82962; 87426; 88305; 88331; C9803; J7120; J2405

== ENCOUNTER 2020-06-07 07:53 | Day surgery (SDC) | payer MEDICARE, SELFPAY ==
[2020-05-17 09:37] VITALS: BMI 24.0
[2020-06-06 09:59] LABS: Hematocrit 39.1 % (40-54); Hemoglobin 12.3 g/dL (13.0-16.5); Mean Corp Hgb Conc 31.5 g/dL (32-36); Mean Corpuscular Hgb 28.4 pg (27.0-32.0); Mean Corpuscular Volume 90.3 fL (80-94); Mean Platelet Vol. 10.7 fl (6.2-12.0); Platelet Count 235 K/mm3 (150-450); RBC Distribution Width CV 14.5 % (11.6-14.6); RBC Distribution Width SD 48.2 fl (35.1-43.9); Red Blood Count 4.33 M/mm3 (4.6-6.2); White Blood Count 6.4 K/mm3 (4.4-11.0)
[2020-06-06 10:09] LABS: Hemoglobin A1c 6.8 % (3.8-5.6)
[2020-06-06 10:40] LABS: Anion Gap 3 (5-15); BUN 19 mg/dL (7-18); BUN/Creat Ratio 19.8 RATIO (10-20); Calcium,Total 9.5 mg/dL (8.5-10.1); Chloride 109 mmol/L (98-107); Creatinine, Serum 0.96 mg/dL (0.70-1.30); EST Glomerular Filtration Rate 79 mL/min (>60); Est Glom Filt Rate - Afr Amer 95 mL/min (>60); Glucose 114 mg/dL (74-106); Potassium 4.3 mmol/L (3.5-5.1); Sodium Level 141 mmol/L (136-145); Thyroid Stim Hormone (TSH) 5.46 uIU/mL (0.358-3.74)
[2020-06-07 08:31] VITALS: BP 156/82; PULSE 59; RESP 16; TEMP 36.1; O2SAT 97; BMI 22.4
[2020-06-07] MEDS: Lactated Ringers 1,000 ML 100 ML IV (08:31)
[2020-06-07] MEDS: Cefazolin 2 GM in 0.9% Normal Saline 100 ML IV (09:52)
--- NOTE | 2020-06-07 09:57 | PCM.HP.STD ---
Problem List (1) Urethral stricture Status: Acute History of Present Illness Date of Admission: 06/07/20 Chief Complaint: Urethral stricture The patient is a 85 year old male with a history of an atonic poorly functioning bladder he has manages bladder with self intermittent catheterization but recently has been having difficulty getting the catheter and is found to have a dense urethral stricture at the bulbar urethra so again taken the surgery and perform a DVIU. 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 Sony Nguyen MD) Atherosclerosis of coronary artery of [place] heart without angina pectoris (Chronic) I25.10 Symptomatic bradycardia (Chronic) R00.1 Paroxysmal atrial fibrillation (Chronic) I48.0 Left carotid artery stenosis (Chronic) I65.22 Left Carotid Endarterectomy 07/2003 Essential (primary) hypertension (Chronic) I10 Hyperlipidemia (Chronic) E78.5 Type II diabetes mellitus (Chronic) E11.9 Former smoker (Chronic) Z87.891 Neoplasm of skin of ear (Chronic) D49.2 1 cm lesion antitragus right ear Neoplasm of skin of lip (Chronic) D49.2 6 mm lesion right upper lip at philtral column and near the [place] Allergies T78.40XA Back problem M53.9 COPD (chronic obstructive pulmonary disease) J44.9 Cataracts, bilateral H26.9 Family history of prostate problems Z84.2 self Hearing problem H91.90 Hepatic cyst K76.89 Neuropathy G62.9 Obstructive sleep apnea G47.33 Osteoarthritis M19.90 Self-catheterizes urinary bladder Z78.9 3 times a day TIA (transient ischemic attack) G45.9 Vertebral artery stenosis I65.09 Elevated liver enzymes (Resolved) R74.8 Allergies poison shay extract Allergy (Verified 06/07/20 08:13) Rash codeine Adverse Reaction (Verified 06/07/20 08:13) Vomiting seasonal Allergy (Uncoded 06/07/20 08:13) Other Home Medications: Ambulatory Orders Medication Instructions Recorded Zolpidem Tartrate 5 mg PO QHS 12/01/13 Metformin HCl [Metformin HCl ER] 500 mg PO DAILY 06/12/15 loratadine 10 mg tablet 10 mg PO DAILY 08/07/19 pravastatin 20 mg tablet 20 mg PO QHS #90 tab 10/25/19 fluorouracil 5 % topical cream 1 applic TOPICAL BID 03/06/20 amiodarone 200 mg tablet 200 mg PO DAILY #90 tab 04/02/20 lisinopril 10 mg tablet 10 mg PO BID tab 04/02/20 Vit A/Vit C/Vit E/Zinc/Copper 1 ea PO BID 05/10/20 [Preservision Areds Softgel] Apixaban [Eliquis] 5 mg PO BID #180 tab 05/17/20 Lactobacillus Acidophilus/Fos 1 ea PO BID #20 tab 05/17/20 [Acidophilus Probiotic Tablet] Amlodipine Besylate [Norvasc] 5 mg PO LUNCH 06/05/20 Aspirin [Aspirin, Baby] 81 mg PO DAILY@0800 06/05/20 Oxycodone HCl/Acetaminophen 1 ea PO PRN PRN 06/05/20 [Oxycodone-Acetaminophen 5-325] metoprolol tartrate 25 mg tablet 25 mg PO BID #180 tab 06/05/20 Surgical History: Surgical History (Last Reviewed 06/05/20 @ 09:03 by Silvana Hawkins) History of coronary artery stent placement (Resolved) Onset Date: 09/25/03 Z95.5 PCI-BMS-Mid LAD w/ 3.5 x 18 mm S670 Stent 02/2000, Cutting balloon angioplasty of ISR Mid LAD 09/25/2003 History of permanent cardiac pacemaker placement (Chronic) Onset Date: 03/06/[address] [facility] History of basal cell carcinoma excision Z98.890, Z85.828 1. Excision 6 mm basal cell carcinoma right upper lip at philtral column near the [place] border with right perialar crescenteric advancement skin flap reconstruction (12 cm2). 2. Excision 1 cm actinic keratosis right ear at antitragus with FTSG reconstruction from right neck (1.44 cm2) - 05/17/20 History of left-sided carotid endarterectomy Onset Date: 07/2003 Z98.890 History of left heart catheterization Onset Date: 02/27/11 Z98.890 cardiac cath with fractional flow reserve mid LAD FFR 0.93 History of prostate surgery Z98.890 History of right knee joint replacement Z96.651 Surgical History: cataract, total knee arthroplasty - Right side, - - Left carotid endarterectomy, coronary stent in 1999 Psychiatric History: No pertinent psych hx Smoking Status: Former smoker Tobacco Use: Non-smoker - *Family History Maternal Family History: Family History (Last Reviewed 06/05/20 @ 09:03 by Silvana Hawkins) Mother Hypertension History of blood clots Uncle Heart disease CVA (cerebral vascular accident) Uncle Heart disease Grandmother CVA (cerebral vascular accident) History Items: Heart Disease, Stroke Paternal Family History: Family History (Last Reviewed 06/05/20 @ 09:03 by Silvana Hawkins) Mother Hypertension History of blood clots Uncle Heart disease CVA (cerebral vascular accident) Uncle Heart disease Grandmother CVA (cerebral vascular accident) History Items: Cancer Review of Systems Constitutional: Denies: Chills, Fever, Weight Change HEENT: Denies: Head Aches, Sinus Congestion, Sinus Drainage Cardiovascular: Denies: Chest Pain, Palpitations Respiratory: Denies: Cough, Shortness of breath at rest, Sputum production Gastrointestinal: Denies: Abdominal Pain, Nausea, Vomiting Genitourinary: Denies: Dysuria Musculoskeletal: Denies: Joint Pain, Joint Tenderness Skin: Denies: Rash, Wounds Neurological: Denies: Numbness, Tingling, Focal weakness Psychiatric: Denies: Anxiety, Depression, Homicidal Ideations, Suicidal Ideations Hematologic/ Lymphatic: Denies: Easy Bruising, Easy Bleeding VTE Information - Inpt Only VTE Present on Admission: No - Physical Exam Vitals/I&O's: Vital Signs Temp Pulse Resp BP Pulse Ox 97.0 F L 59 L 16 156/82 H 97 06/07/20 08:31 06/07/20 08:31 06/07/20 08:31 06/07/20 08:31 06/07/20 08:31 Oxygen Delivery Method Room Air Weight: 66.9 kg Body Mass Index (BMI) 22.4 Finger Stick Blood Glucose 111 General: Alert, Oriented x3, Cooperative HEENT: Atraumatic, PERRLA, EOMI, Normocephalic Neck: Supple, No JVD, Negative Carotid Bruits Lungs: Clear to auscultation, Normal air movement Cardiovascular: Regular rate, No murmurs Abdomen: Bowel Sounds Present, Soft, Non Tender Extremities: No edema, Capillary Refill Less than 3 Seconds Skin: No rashes, No breakdown Musculoskeletal: No Tenderness to Palpation of Joints or Extremities Neurological: Cranial nerves II-XII grossly intact Psych/Mental Status: Normal Affect, Appropriate Microbiology Past 72 Hours 06/06/20 08:35 Interface Orders SARS-CoV-2 Antigen (Rapid) - Final Laboratory Results 06/06/20 08:45: WBC 6.4, RBC 4.33 L, Hgb 12.3 L, Hct 39.1 L, MCV 90.3, MCH 28.4, MCHC 31.5 L, RDW Std Deviation 48.2 H, RDW Coeff of [place] 14.5, Plt Count 235, MPV 10.7 06/06/20 08:45: Sodium 141, Potassium 4.3, Chloride 109 H, Carbon Dioxide 29.0, Anion Gap 3 L, BUN 19 H, Creatinine 0.96, Est GFR (MDRD) Af Amer 95, Est GFR (MDRD) Non-Af 79, BUN/Creatinine Ratio 19.8, Glucose 114 H, Calcium 9.5, TSH 5.46 H 06/06/20 08:45: Hemoglobin A1c 6.8 H Current Medications Cefazolin Sodium 2 gm/ Sodium (Chloride) 110 mls @ 150 mls/hr IV PREOP ONE Stop: 06/07/20 12:13 Lactated Ringer's () 1,000 mls @ 100 mls/hr IV .Q10H MASSIEL Last Admin: 06/07/20 08:31 Dose: 100 mls/hr Documented by: Assessment/Plan All Active Problems (Last Reviewed 06/05/20 @ 09:03 by Silvana Hawkins) Urethral stricture (Acute) Basal cell carcinoma of skin of right upper lip (Acute) History of coronary artery stent placement (Resolved 09/25/03) Chest pain (Resolved) Dehydration (Resolved) Elevated liver enzymes (Resolved) Orthostasis (Resolved) Vertebral artery stenosis (Resolved) Plan to proceed with a direct vision internal urethrotomy.
--- NOTE | 2020-06-07 09:58 | DCINST_ITS ---
Discharge Diet: Light diet - advance as tolerated Discharge Activity: Return to Normal Activity Suture Line Care: Avoid Pulling/Pushing, Avoid Pinching/Bending Allergies/Adverse Reactions: Allergies poison shay extract Allergy (Verified 06/07/20 08:13) Rash codeine Adverse Reaction (Verified 06/07/20 08:13) Vomiting seasonal Allergy (Uncoded 06/07/20 08:13) Other Medications to take at Discharge Zolpidem Tartrate 5 mg PO QHS 12/01/13 Metformin HCl [Metformin HCl ER] 500 mg PO DAILY 06/12/15 loratadine 10 mg tablet 10 mg PO DAILY 08/07/19 pravastatin 20 mg tablet 20 mg PO QHS #90 tab 10/25/19 fluorouracil 5 % topical cream 1 applic TOPICAL BID 03/06/20 amiodarone 200 mg tablet 200 mg PO DAILY #90 tab 04/02/20 lisinopril 10 mg tablet 10 mg PO BID tab 04/02/20 Vit A/Vit C/Vit E/Zinc/Copper [Preservision Areds Softgel] 1 ea PO BID 05/10/20 Apixaban [Eliquis] 5 mg PO BID #180 tab 05/17/20 Lactobacillus Acidophilus/Fos [Acidophilus Probiotic Tablet] 1 ea PO BID #20 tab 05/17/20 Amlodipine Besylate [Norvasc] 5 mg PO LUNCH 06/05/20 Aspirin [Aspirin, Baby] 81 mg PO DAILY@0800 06/05/20 Oxycodone HCl/Acetaminophen [Oxycodone-Acetaminophen 5-325] 1 ea PO PRN PRN 06/05/20 metoprolol tartrate 25 mg tablet 25 mg PO BID #180 tab 06/05/20 Primary Care Physician: Delfino Carrizales DO [Primary Care Provider] - Test Results: Test results from this visit will be discussed in further detail at your follow- up appointment, if applicable. Please Follow Up With: Sony Nguyen MD - [phone] When: in 2 weeks, please call to make an appointment.
--- NOTE | 2020-06-07 10:14 | PCM.OPRPT ---
Problem List (1) Urethral stricture Status: Acute Report of Operation Date of Procedure: 06/07/20 Pre-Operative Diagnosis: Urethral stricture, bladder neck contracture Post-Operative Diagnosis: Same Surgery/Procedure Performed:: Cystoscopy, direct vision internal urethrotomy of mid urethral stricture, and also incision of a bladder neck contracture Description of Surgical Findings:: 85-year-old male with a history of a prior TURP has been having difficulty with catheterizing himself where he can get the catheter and empty his bladder so today when taken the surgery. In the preoperative setting I suspect that he had a urethral stricture and may have also a bladder neck contracture. He was taken back to the operating room at the smooth induction of general anesthesia he was placed in dorsolithotomy position. Penis and testicles are prepped and draped in usual sterile fashion. Went into the bladder with a cystoscope in the mid urethra there was a stricture I used the DVIU set and the blade and I cut the stricture open I then dilated the stricture to 28 [place]. Then after this I went through the mid stricture past the verumontanum into the prostate channel and he did have a bladder neck contracture that is also causing obstruction so I used a DVIU set and I incised at the 12 o'clock position of the bladder neck contracture and then I incised the bladder neck contracture at the 5:00 and 7 o'clock position to open up the bladder neck contracture widely. After this was done that I was able to get a 20 [place] catheter really easily into the bladder with 10 cc of fluid into the balloon and put it to gravity drainage and the patient go home with 2 weeks with a catheter let everything heal up. Drains: 20 fr alarcon - Admit VTE Documentation VTE Present on Admission: No VTE Mechan Device Prophylaxis: SCD's
[2020-06-07 10:25] LABS: Bedside Glucose 114 mg/dL (70-110)
[2020-06-07 10:27] VITALS: BP 105/51; BP 156/82; PULSE 60; RESP 18; TEMP 36.6; O2SAT 99
[2020-06-07 10:45] VITALS: BP 102/60; BP 156/82; PULSE 60; RESP 16; O2SAT 96
[2020-06-07 10:57] VITALS: BP 156/82; PULSE 60; RESP 16; O2SAT 95
[2020-06-07 11:06] LABS: Bedside Glucose 102 mg/dL (70-110)
[2020-06-07 11:59] VITALS: BP 150/84; BP 156/82; PULSE 55; RESP 18; O2SAT 100
== END 2020-06-07 12:10 | disposition home or self-care (01) ==
LOC: SDC 07:53 → AC 07:54
PROVIDERS: Anesthesiology; PCP Family Medicine; Referring Provider Urology; Visit Provider Urology
PROC: 0T7D8ZZ Dilation of Urethra, Via Natural or Artificial Opening Endoscopic (ICD-10-PCS; CPT 52276; principal; 2020-06-07 10:00)
DX: N35.919 Unspecified urethral stricture, male, unspecified site (principal); N32.0 Bladder-neck obstruction; Z20.828 Contact with and (suspected) exposure to other viral communicable diseases; I25.10 Atherosclerotic heart disease of native coronary artery without angina pectoris; I10 Essential (primary) hypertension; E03.9 Hypothyroidism, unspecified; J44.9 Chronic obstructive pulmonary disease, unspecified; I48.0 Paroxysmal atrial fibrillation; G47.33 Obstructive sleep apnea (adult) (pediatric); M19.90 Unspecified osteoarthritis, unspecified site; E78.5 Hyperlipidemia, unspecified; E78.00 Pure hypercholesterolemia, unspecified; E11.36 Type 2 diabetes mellitus with diabetic cataract; H91.90 Unspecified hearing loss, unspecified ear; Z86.73 Personal history of transient ischemic attack (TIA), and cerebral infarction without residual deficits; Z87.442 Personal history of urinary calculi; Z95.5 Presence of coronary angioplasty implant and graft; Z79.01 Long term (current) use of anticoagulants; Z79.82 Long term (current) use of aspirin; Z79.84 Long term (current) use of oral hypoglycemic drugs; Z79.899 Other long term (current) drug therapy; Z87.891 Personal history of nicotine dependence
CPT/HCPCS: 00910; 52276; 36415; 80048; 82962; 83036; 84443; 85027; 87426; C9803; J7120; C1769; J2405

== ENCOUNTER 2020-11-11 06:54 | Day surgery (SDC) | payer MEDICARE, SELFPAY ==
[2020-11-04 10:05] VITALS: BMI 22.4
[2020-11-04 11:28] VITALS: BMI 21.4
--- NOTE | 2020-11-04 11:35 | RAD_ITS ---
STUDY: X-RAY CHEST REASON FOR EXAM: Male, 85 years old. For PPM generator change. TECHNIQUE: Frontal and lateral views of the chest. COMPARISON: 12/17/2017. FINDINGS: Stable mild hyperexpansion with scattered healed granulomatous calcification. There is no demonstrated pleural abnormality. Cardiomegaly with dual lead cardiac pacer unchanged. Normal mediastinum and caleb. Normal visualized pulmonary arteries. Stable aortic tortuosity with calcification. Thoracic spondylosis unchanged. Normal visualized ribs, clavicles, and shoulders. There is no demonstrated abnormality of the visualized soft tissue structures of the upper abdomen. RAD/Chest PA and Lateral IMPRESSION: Stable chest with no acute or active cardiopulmonary disease. Electronically Signed: Wong Pineda MD at 9:49 EDT , Service support ,
[2020-11-04 12:20] LABS: Hematocrit 38.8 % (40-54); Hemoglobin 12.3 g/dL (13.0-16.5); Mean Corp Hgb Conc 31.7 g/dL (32-36); Mean Corpuscular Hgb 29.5 pg (27.0-32.0); Mean Platelet Vol. 10.5 fl (6.2-12.0); Platelet Count 202 K/mm3 (150-450); RBC Distribution Width CV 14.3 % (11.6-14.6); RBC Distribution Width SD 48.9 fl (35.1-43.9); Red Blood Count 4.17 M/mm3 (4.6-6.2); White Blood Count 6.3 K/mm3 (4.4-11.0)
[2020-11-04 12:32] LABS: International Normalized Ratio 1.1
[2020-11-04 12:56] LABS: Anion Gap 7 (5-15); BUN 21 mg/dL (7-18); Calcium,Total 9.4 mg/dL (8.5-10.1); Chloride 106 mmol/L (98-107); EST Glomerular Filtration Rate 75 mL/min (>60); Est Glom Filt Rate - Afr Amer 91 mL/min (>60); Glucose 124 mg/dL (74-106); Potassium 4.8 mmol/L (3.5-5.1); Sodium Level 140 mmol/L (136-145)
[2020-11-05 09:25] LABS: Mucous, Urine 0 SEEN /hpf (<or=2+)
[2020-11-05 10:47] LABS: Color, Urine Yellow (Yellow); Glucose, Dipstick Normal (Normal); Ketone-Dipstick Negative (Negative); Leukocyte Esterase-Dipstick 500 /ul (Negative); Nitrite-Dipstick Positive (Negative); Occult Blood-Urine 25 /ul (Negative); Protein-Dipstick 15 mg/dl (Negative); Urine Bilirubin Dipstick Negative (Negative); Urine Clarity Sl. Cloudy (Clear); Urine Urobilinogen Normal (Normal)
[2020-11-05 10:54] LABS: Bacteria 2+ /hpf (None Seen); Red Blood Cells-Urine 0-5 SEEN /hpf (0-5); Squamous Epithelial Cells - UA 0-5 SEEN /hpf (0-5); White Blood Cells 25-50 SEEN /hpf (0-5)
[2020-11-08 08:35] VITALS: BMI 21.4
--- NOTE | 2020-11-11 08:32 | CL.IE_ITS ---
Patient: LISA BATRES Study Date: 11/11/2020 Performing: Andrew Bradley MD : 1935 Age: 85 Gender: male PROCEDURES PERFORMED CQ45-INOPAVO REMOVAL+REPLACEMENT PACER-DUAL LEAD INDICATIONS Sinoatrial node dysfunction/Sick sinus syndrome PROCEDURE DETAILS The patient was brought to the Catheterization Lab in the postabsorptive nonsedated state. Infor med consent was obtained prior to the procedure. Local anesthetic was given subcutaneously to the le ft subclavian region with Lidocaine 2%. PPM generator was then interrogated by the oracle programmer. PPM ge nerator was attached to the lead(s) and inserted into the pocket. Device pocket was irrigated with an tibiotic Ancef. Subcutaneous closure was completed with 3-0 Vicryl. Skin closure was completed with 4 -0 Vicryl. The patient tolerated the procedure well. Estimated Blood Loss: 25 ml's IMPLANTED / EX-PLANTED DEVICES IMPLANTED DEVICE(S): PPM Generator - Well Service Floor Worker: [place], Model #Assurity MRI [id number] , Serial # [id number] DEVICE PARAMETERS ATRIAL LEAD PARAMETERS: P wave- 2.0 (mV) Current- 1.2 (mA) threshold- 0.75 (V) impedence- 310 (OHMS) VENTRICULAR LEAD PARAMETERS: threshold- 0.75 (V) impedence- 440 (OHMS) DEVICE PARAMETERS: Mode- DDDR Lower rate- 60 Upper rate- 120 CONCLUSIONS / RECOMMENDATIONS Device Conclusions: Successful implantation of a dual chamber pacemaker battery change and replacemen t Device Recommendations: Follow up with Primary Care Physician PROCEDURE MEDICATIONS Versed 1 mg IV Fentanyl 50 mcg IV Oxygen: 2 L/min via nasal cannula Antibiotic given in appropriate timeframe. Ancef 2 Gm IV @ 11/11/2020 07:57:58 Signed By Andrew Bradley MD On 11/11/2020 13:43:09 Signed By Andrew Bradley MD On 11/11/2020 08:32:24 Andrew Bradley MD
== END 2020-11-11 09:55 | disposition home or self-care (01) ==
LOC: CLSP 06:54
PROVIDERS: PCP Family Medicine; Referring Provider Internal Medicine Cardiovascular Disease; Visit Provider Internal Medicine Cardiovascular Disease
DX: I49.5 Sick sinus syndrome (principal); I25.10 Atherosclerotic heart disease of native coronary artery without angina pectoris; J44.9 Chronic obstructive pulmonary disease, unspecified; I10 Essential (primary) hypertension; E78.5 Hyperlipidemia, unspecified; I65.22 Occlusion and stenosis of left carotid artery; I48.0 Paroxysmal atrial fibrillation; E11.40 Type 2 diabetes mellitus with diabetic neuropathy, unspecified; G47.33 Obstructive sleep apnea (adult) (pediatric); M19.90 Unspecified osteoarthritis, unspecified site; Z87.891 Personal history of nicotine dependence; Z79.899 Other long term (current) drug therapy; Z86.73 Personal history of transient ischemic attack (TIA), and cerebral infarction without residual deficits; Z79.84 Long term (current) use of oral hypoglycemic drugs; Z79.82 Long term (current) use of aspirin
CPT/HCPCS: 33228; 36415; 71046; 80048; 81001; 85027; 85610; 99152; 99153; J7040; J7050

== ENCOUNTER → 2020-12-25 09:25 | Outpatient (CLI) | payer MEDICARE, SELFPAY ==
[2020-11-08 08:35] VITALS: BMI 21.4
--- NOTE | 2020-12-25 09:28 | RAD_ITS ---
STUDY: X-RAY - ABDOMEN/PELVIS REASON FOR EXAM: Male, 85 years old. ABD DISCOMFORT AND DIARRHEA TECHNIQUE: Single AP view of the abdomen / pelvis. COMPARISON: None. FINDINGS: Normal visualized lung bases. There is an abundance of fecal material throughout the colon. The visualized liver, spleen and kidneys are grossly normal in size and morphology. Normal soft tissue structures. There are diffuse degenerative changes of the visualized lumbar spine. Dextroscoliosis. RAD/Abd Inc Decub and/or Erect IMPRESSION: Large amount of fecal material is seen in the colon. Electronically Signed: Zoran Barakat MD at 20:30 EDT , Service support ,
== END ==
PROVIDERS: PCP Family Medicine; Referring Provider Family Medicine; Visit Provider Family Medicine
DX: R10.9 Unspecified abdominal pain (principal); R19.7 Diarrhea, unspecified
CPT/HCPCS: 74019

== ENCOUNTER → 2021-01-28 13:51 | Outpatient (CLI) | payer MEDICARE, SELFPAY ==
[2020-11-08 08:35] VITALS: BMI 21.4
--- NOTE | 2021-01-28 13:53 | ART_ITS ---
Reason For Study: Bilateral leg pain Procedure A bilateral lower extremity continuous wave Doppler with analog waveform analysis and ankle brachial indexes. Left Segmental Pressures Left brachial= 129mmHg. Left posterior tibial artery = 134mmHg. Left digit = 114 mmHg. The left dorsalis pedis waveforms are biphasic. The left posterior tibial artery waveforms are triphasic. Right Segmental Pressures Right brachial= 128mmHg. Right posterior tibial artery = 153mmHg. Right dorsalis pedis artery = 157mmHg. Right digit = 76 mmHg. The right dorsalis pedis waveforms are triphasic. The right posterior tibial artery waveforms are biphasic. Indices The right ankle brachial index by the dorsalis pedis is 1.22. The right ankle brachial index by the posterior tibial artery is 1.19. The right digital-brachial index is 0.59. The left ankle brachial index by the dorsalis pedis is 0.88. The left ankle brachial index by the posterior tibial artery is 1.04. The left digital-brachial index is 0.41. VL/Ankle Brachial Index Interpretation Summary Normal bilateral extremity ankle-brachial indices at rest. Right posterior tibi al and dorsalis pedis demonstrate biphasic and triphasic waveforms respectively. This would suggest m ild to moderate disease of the posterior tibialis although flow well-maintained in the dorsalis pedis Left posterior tibial and dorsalis pedis demonstrate triphasic and biphasic wav eforms respectively. This would suggest mild to moderate disease of the left tibialis anterior altho ugh with maintained normal flow through the left posterior tibialis Bilateral digital brachial waveforms are abnormal at 0.59 on the right and 0.41 on the left. This would correlate with vasospasm temperature effect or small vessel disease. Critical ischemia does not appear to be present bilaterally Ordering Physician: Delfino Carrizales Referring Physician: Delfino Carrizales Performed By: Carmen Shelton RVT
== END ==
PROVIDERS: PCP Family Medicine; Referring Provider Family Medicine; Visit Provider Family Medicine
DX: I73.9 Peripheral vascular disease, unspecified (principal)
CPT/HCPCS: 93922

== ENCOUNTER → 2021-04-28 06:43 | Outpatient (CLI) | payer MEDICARE, SELFPAY ==
--- NOTE | 2021-04-28 06:45 | CT_ITS ---
STUDY: CT ABDOMEN AND PELVIS WITH CONTRAST REASON FOR EXAM: Male, 85 years old. CHANGE IN BOWEL HABITS RADIATION DOSAGE (If Supplied By Facility): CTDIvol = ( 17.75 ) mGy, DLP = ( 800.78 ) mGycm TECHNIQUE: Transaxial images were obtained from the dome of the diaphragm to the symphysis pubis with oral contrast. Oral and amp; IV Readi-CAT and amp; 100mL Isovue-370 was administered. Sagittal and coronal images were reconstructed. Individualized dose optimization techniques were used for this CT. COMPARISON: None. FINDINGS: There are increased linear markings at the lung bases suggestive of scarring. Coronary artery calcifications. A dual-chamber pacemaker is seen. There are multiple hepatic cysts scattered throughout both lobes of the liver. The largest cyst is in the inferior aspect of the right lobe and measures 7 cm x 5.6 cm. Normal gallbladder and extrahepatic biliary system. There are multiple benign calcified granulomata of the spleen. Normal pancreas. Normal bilateral adrenal glands. Results of by bilateral cortical renal atrophy. Small bilateral renal cysts. Mild fullness of the renal pelves bilaterally. Normal visualized stomach. Normal small intestine. A large amount of fecal material is seen in the colon. Scattered sigmoid diverticula. The appendix is visualized and appears normal. There is diffuse atherosclerotic calcification of the abdominal aorta and its major visceral branches, without a demonstrated aneurysm. Normal inferior vena cava. Normal retroperitoneum. There is diffuse thickening of the bladder wall. This also evidence of a 1.8 cm bladder diverticulum along the posterior right side of the bladder. There are prostatic calcifications. Normal abdominal wall. There are diffuse degenerative changes of the visualized lumbar spine. CT/Abdomen/Pelvis WITH Contrast IMPRESSION: Multiple hepatic cysts. Diffuse atherosclerotic calcific plaques of the abdominal aorta and the major visceral branches. Large amount of fecal material is seen in the colon. Findings suggestive of scarring at the lung bases. Electronically Signed: Zoran Barakat MD at 11:16 EST , Service support ,
[2021-04-28 07:01] LABS: CREATININE FINGERSTICK 0.9 mg/dL (0.70-1.30); EGFR FINGERSTICK > 60.0000 mL/min (>60)
== END ==
PROVIDERS: PCP Family Medicine; Referring Provider Family Medicine; Visit Provider Family Medicine
DX: R19.5 Other fecal abnormalities (principal); R19.4 Change in bowel habit
CPT/HCPCS: 74177; Q9967

== ENCOUNTER 2021-05-14 15:03 | Emergency (ER) | payer MEDICARE, SELFPAY ==
[2021-05-14 15:04] VITALS: BP 149/72; PULSE 58; RESP 17; TEMP 36; O2SAT 98; BMI 22.6
--- NOTE | 2021-05-14 15:33 | EDS_ITS ---
HPI History of Present Illness HPI Narrative: Patient presents with laceration to his right hand and thumb that occurred today. Patient states he was using a industrial coffee grinder and change the wheel on the industrial coffee grinder. Patient states that he turned the industrial coffee grinder on before he put the guard back on and cut his right hand and thumb. Patient describes his pain as burning. Patient is unsure of his last tetanus. Patient states nothing makes his pain worse and nothing makes it better. Chief Complaint: Laceration Informant: patient Occured/Mechanism Comment: Hit on a grinding wheel Onset/Context/Timing Context: Sudden Onset Timing: Continuous Quality of Pain: Burning Location: Right hand and thumb Worsened by: Nothing Relieved by: Nothing Associated Symptoms Associated Symptoms: Negative for Parasthesia, Weakness and Loss of Funtion Narrative Tetanus Immunization: Unknown [facility] Medical History Allergies Atherosclerosis of coronary artery of [place] heart without angina pectoris Back problem Cataracts, bilateral COPD (chronic obstructive pulmonary disease) Elevated liver enzymes Essential (primary) hypertension Family history of prostate problems Former smoker Hearing problem Hepatic cyst Hyperlipidemia Left carotid artery stenosis Neuropathy Obstructive sleep apnea Osteoarthritis Paroxysmal atrial fibrillation Self-catheterizes urinary bladder Sick sinus syndrome Symptomatic bradycardia TIA (transient ischemic attack) Type II diabetes mellitus Vertebral artery stenosis Home Medications zolpidem 5 mg PO QHS 12/01/13 [History Last Taken 06/11/15] metformin 500 mg PO DAILY 06/12/15 [History Last Taken 11/10/20] loratadine 10 mg tablet 10 mg PO DAILY 08/07/19 [History Last Taken Unknown] fluorouracil 5 % topical cream 1 applic TOPICAL BID 03/06/20 [History Last Taken Unknown] vitamins A,C,Q-fhgh-jacxpd 1 ea PO BID 05/10/20 [History Last Taken Unknown] aspirin 81 mg PO DAILY@0800 06/05/20 [History Last Taken 06/02/20] metoprolol tartrate 25 mg tablet 25 mg PO BID #180 tab 06/05/20 [Rx Last Taken 11/11/20] pravastatin 20 mg tablet 20 mg PO QHS #90 tab 07/25/20 [Rx Last Taken Unknown] apixaban 5 mg tablet 5 mg PO BID #180 tab 11/02/20 [Rx Last Taken 11/08/20] lisinopril 10 mg tablet See Rx Instructions .ROUTE .COMPLEX #180 tab 12/09/20 [Rx Last Taken Unknown] levothyroxine 25 mcg capsule 25 mcg PO DAILY 01/14/21 [History Last Taken Unknown] rosuvastatin 10 mg tablet 10 mg PO DAILY 01/14/21 [History Last Taken Unknown] amiodarone 200 mg tablet 200 mg PO DAILY #90 tab 03/31/21 [Rx Last Taken Unknown] amlodipine 5 mg tablet 5 mg PO LUNCH #90 tab 04/07/21 [Rx Last Taken Unknown] cephalexin 500 mg PO Q6 #40 capsule 05/14/21 [Rx Last Taken Unknown] Allergy/AdvReac Type Severity Reaction Status Date / Time poison shay extract Allergy Rash Verified 05/14/21 15:04 codeine AdvReac Vomiting Verified 05/14/21 15:04 seasonal Allergy Other Uncoded 05/14/21 15:04 Family History Mother Hypertension History of blood clots Uncle Heart disease CVA (cerebral vascular accident) Uncle Heart disease Grandmother CVA (cerebral vascular accident) Surgical History History of basal cell carcinoma excision History of coronary artery stent placement (09/25/03) History of left heart catheterization (02/27/11) History of left-sided carotid endarterectomy (07/2003) 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) History of prostate surgery History of right knee joint replacement Social History Smoking Status: Former smoker how long ago did patient quit smokin alcohol intake: former year quit: 1999 substance use type: does not use caffeine: Yes Type: coffee Number of servings: 2 additional social history: does take aspirin ROS ROS ED Constitutional Constitutional ED: Denies chills or fever(s) Eyes Eyes: Denies blurry vision or change in vision ENT ENT ED: Denies rhinorrhea or sore throat Cardiovascular Cardiovascular: Denies chest pain or palpitations Respiratory/Chest Respiratory/Chest: Denies cough or dyspnea Gastrointestinal Gastrointestinal: Denies nausea or vomiting Genitourinary Genitourinary ED: Denies dysuria or hematuria Musculoskeletal Musculoskeletal: Denies back pain or neck pain Integumentary Denies abscess or rash Neurologic Neurologic: Denies headache(s) or weakness Allergic/Immunologic Allergic/Immunologic ED: Denies mouth swelling or urticaria EXAM Physical Exam Const Vital Signs: 05/14/21 15:04 Temperature 96.8 F L Temperature Source Temporal Pulse Rate 58 L Respiratory Rate 17 Blood Pressure 149/72 H Blood Pressure Mean 97 Pulse Ox 98 Oxygen Delivery Method Room Air Positive well nourished and well developed General Appearance ED: well developed HEENT Reports moist mucous membranes Neck full ROM and supple Extremity Extremity Narrative: There is a 6 cm full-thickness linear laceration over the dorsal aspect of the right first proximal phalanx and first metacarpal. There is moderate gapping of the wound margins. There is no bony crepitance or step- off. There is no active bleeding noted. There are no foreign bodies visualized. There are no tendon lacerations noted. Strength is 5/5 in flexion extension of the IP and MP joints of the right thumb. Sensation is intact to light touch in all digits. Capillary refill was less than 2 seconds in all digits. Neuro oriented x3, CN's II-XII intact bilaterally, moves all extremities, no focal motor deficits and no sensory deficits noted Sensorium / Orientation: alert MDM MDM MDM Narrative Medical decision making narrative: The wound was cleaned and irrigated with copious amounts of normal saline. The wound was anesthetized with 1% plain lidocaine locally. The wound was closed with 7 simple interrupted #4-0 nylon sutures under sterile technique. Patient tolerated the procedure well. Bacitracin dressing was applied. Patient was given a tetanus booster. Patient was given a dose of Keflex here. Patient was given a prescription for Keflex. Patient was instructed to follow-up with his primary care physician in 7 days for wound recheck and suture removal. Patient understood and was agreeable with the plan. All questions were answered. Procedures Lacerations Right hand: Length: 6 cm Depth: Sub Q Shape: Linear Prep: Sterile Conditions and Chlorhexadine Laceration repair: Irrigated, Lidocaine, Local, Skin sutures and Wound explored Irrigated (ml): 100 Number of Sutures/Adrian: 7 Suture Information: Ethilon, Simple and 4-0 Discharge Plan Triage Chief Complaint: Laceration ED Provider: Tray Olsen Dx/Rx/DC Orders Clinical Impression: Laceration of right hand Instructions: ED Laceration, Hand: All Closures Prescriptions: New cephalexin [cephalexin] 500 MG capsule 500 mg PO Q6 Qty: 40 RF: 0 No Action loratadine [Allergy Relief (loratadine)] 10 mg tablet 10 mg PO DAILY RF: 0 fluorouracil 5 % cream 1 applic TOPICAL BID RF: 0 rosuvastatin 10 mg tablet 10 mg PO DAILY RF: 0 levothyroxine 25 mcg capsule 25 mcg PO DAILY RF: 0 zolpidem 5 MG tablet 5 mg PO QHS RF: 0 metformin 500 MG tablet extended release 24 hr 500 mg PO DAILY RF: 0 vitamins A,C,U-mciy-usqgrx 1 EACH capsule 1 ea PO BID RF: 0 aspirin 81 MG tablet,chewable 81 mg PO DAILY@0800 RF: 0 metoprolol tartrate 25 mg tablet 25 mg PO BID Qty: 180 RF: 3 pravastatin 20 mg tablet 20 mg PO QHS Qty: 90 RF: 3 apixaban 5 mg tablet 5 mg PO BID Qty: 180 RF: 3 lisinopril 10 mg tablet See Rx Instructions .ROUTE .COMPLEX Qty: 180 RF: 3 amiodarone 200 mg tablet 200 mg PO DAILY Qty: 90 RF: 3 amlodipine 5 mg tablet 5 mg PO LUNCH Qty: 90 RF: 3 Primary Care Provider: Delfino Carrizales Referrals: Delfino Carrizales DO [Primary Care Provider] - 7 Days for suture removal Disposition Disposition: Home, Self Care
[2021-05-14] MEDS: Diphth,Pertuss(Acell),Tet Vac 0.5 ML Vial IM (16:25)
[2021-05-14] MEDS: Cephalexin 500 MG Capsule PO (16:27)
[2021-05-14] MEDS: Lidocaine 1% (20 ml mdv) 20 ML Vial INFILT (16:27)
== END 2021-05-14 16:40 | disposition home or self-care (01) ==
PROVIDERS: Emergency Provider Emergency Medicine; PCP Family Medicine
DX: S61.411A Laceration without foreign body of right hand, initial encounter (principal); W26.8XXA Contact with other sharp object(s), not elsewhere classified, initial encounter; Y93.9 Activity, unspecified; Y92.9 Unspecified place or not applicable; I25.10 Atherosclerotic heart disease of native coronary artery without angina pectoris; E11.36 Type 2 diabetes mellitus with diabetic cataract; H26.9 Unspecified cataract; J44.9 Chronic obstructive pulmonary disease, unspecified; I10 Essential (primary) hypertension; E78.5 Hyperlipidemia, unspecified; I65.22 Occlusion and stenosis of left carotid artery; E11.40 Type 2 diabetes mellitus with diabetic neuropathy, unspecified; G47.33 Obstructive sleep apnea (adult) (pediatric); M19.90 Unspecified osteoarthritis, unspecified site; I48.0 Paroxysmal atrial fibrillation; I49.5 Sick sinus syndrome; Z86.73 Personal history of transient ischemic attack (TIA), and cerebral infarction without residual deficits; Z95.5 Presence of coronary angioplasty implant and graft; Z79.82 Long term (current) use of aspirin; Z79.84 Long term (current) use of oral hypoglycemic drugs; Z79.01 Long term (current) use of anticoagulants; Z79.899 Other long term (current) drug therapy; Z87.891 Personal history of nicotine dependence
CPT/HCPCS: 12002; 90471; 90715; 99284

== ENCOUNTER 2021-09-15 13:39 | Outpatient (CLI) | payer MEDICARE, SELFPAY ==
--- NOTE | 2021-09-15 13:42 | ART_ITS ---
Reason For Study: NEUROPATHY, COLD FEET, PAINFUL TOES. Procedure A bilateral lower extremity continuous wave Doppler with analog waveform analysis,segmental pressures,and ankle brachial indexes without exercise. Left Segmental Pressures Left brachial= 134mmHg. Left posterior tibial artery = 142mmHg. Left dorsalis pedis artery = 144mmHg. Left digit = 88 mmHg. The left posterior tibial artery waveforms are biphasic. The left dorsalis pedis waveforms are biphasic. Right Segmental Pressures Right brachial= 139mmHg. Right posterior tibial artery = 188mmHg. Right dorsalis pedis artery = 187mmHg. Right digit = 154 mmHg. The right posterior tibial artery waveforms are biphasic. The right dorsalis pedis waveforms are triphasic. Indices The right resting ankle brachial index is 1.35. The right ankle brachial index by the posterior tibial artery is 1.35. The right ankle brachial index by the dorsalis pedis is 1.35. The right digital-brachial index is 1.11. The left resting ankle brachial index is 1.04. The left ankle brachial index by the posterior tibial artery is 1.02. The left ankle brachial index by the dorsalis pedis is 1.04. The left digital-brachial index is 0.63. VL/Lower Ext Art Exam w/o Exercis Interpretation Summary Biphasic and triphasic Doppler waveforms are noted at ankle level on the right. Biphasic Doppler waveforms are noted at ankle level on the left. Pulse-volume recordings appear satisfactory at all levels bilaterally, but for the left digital level, which is mildly diminished. Resting ankle- brachial indices are normal bilaterally. The right digital-brachial index is no rmal. The left digital-brachial index is mildly diminished. Arterial flow appears normal at ankle level bilaterally, and at digital level o n the right. There is evidence of mild arterial occlusive disease at digital level on the left. Ordering Physician: Prakash Marshall Referring Physician: Delfino Carrizales Performed By: Barbara Marmolejo RVT, RDCS
[2021-09-15 15:32] LABS: Absolute Lymphocyte Count 1.18 X10^3/uL (0.83-4.51); Basophil# 0.06 X10^3/uL; Eosinophil# 0.14 X10^3/uL; Eosinophils% 2.3 % (0-5); Hematocrit 36.3 % (40-54); Hemoglobin 11.7 g/dL (13.0-16.5); Lymphocyte # 1.18 X10^3/ul (0.83-4.51); Lymphocyte % 19.7 % (19-41); Mean Corp Hgb Conc 32.2 g/dL (32-36); Mean Corpuscular Hgb 29.8 pg (27.0-32.0); Mean Corpuscular Volume 92.4 fL (80-94); Mean Platelet Vol. 10.6 fl (6.2-12.0); Monocyte# 0.61 X10^3/uL; Monocyte% 10.2 % (0-10); NRBC Flagged by Analyzer 0 % (0-5); Neutrophil # 3.98 X10^3/uL (2.7-7.7); Neutrophil % 66.5 % (47-70); Platelet Count 215 K/mm3 (150-450); RBC Distribution Width CV 13.9 % (11.6-14.6); RBC Distribution Width SD 47.5 fl (35.1-43.9); Red Blood Count 3.93 M/mm3 (4.6-6.2)
[2021-09-15 15:50] LABS: Hemoglobin A1c 7.1 % (3.8-5.6)
[2021-09-15 15:58] LABS: Vitamin B12 553 pg/mL (211-911)
[2021-09-15 16:57] LABS: ALB/GLOB Ratio 1.1 RATIO (0.9-2.4); AST(SGOT) 22 U/L (15-37); Alanine Aminotransfer ALT/SGPT 36 U/L (16-61); Albumin, Serum 3.6 g/dL (3.2-5.0); Alkaline Phosphatase 88 U/L (45-117); Anion Gap 6 (5-15); BUN 22 mg/dL (7-18); BUN/Creat Ratio 20.2 RATIO (10-20); CRP < 2.90 mg/L (0.0-3.0); Chloride 109 mmol/L (98-107); Creatinine, Serum 1.09 mg/dL (0.70-1.30); EST Glomerular Filtration Rate 68 mL/min (>60); Est Glom Filt Rate - Afr Amer 82 mL/min (>60); Free T3 2.6 pg/mL (2.18-3.98); Globulin 3.4 g/dL (2.2-4.2); Glucose 220 mg/dL (74-106); Potassium 4.4 mmol/L (3.5-5.1); Sodium Level 140 mmol/L (136-145); T4 Free Direct 0.64 ng/dL (0.76-1.46); T4 Total, Thyroxin 6.7 ug/dL (4.5-12.1)
== END 2021-09-15 23:59 | disposition home or self-care (01) ==
LOC: CVS 13:41 → LAB 14:44
PROVIDERS: PCP Family Medicine; Referring Provider Student in an Organized Health Care Education/Training Program; Visit Provider Student in an Organized Health Care Education/Training Program
DX: G60.9 Hereditary and idiopathic neuropathy, unspecified (principal); I79.8 Other disorders of arteries, arterioles and capillaries in diseases classified elsewhere; M79.662 Pain in left lower leg; M79.661 Pain in right lower leg
CPT/HCPCS: 80053; 82306; 82607; 82746; 83036; 84425; 84436; 84439; 84443; 84481; 85025; 86140; 93923

== ENCOUNTER → 2021-10-15 | Outpatient (CLI) | payer MEDICARE, SELFPAY ==
--- NOTE | 2021-10-15 15:54 | NEURO ---
NCS and/or EMG Patient Report Ordering Doctor: Prakash Marshall DATE OF SERVICE: 10/15/21 Pito presents for electrodiagnostic testing of the lower limbs. He reports cold and burning sensations in the feet, worse on the left side. He reports intermittent low back pain. Electrodiagnostic findings: Left peroneal motor nerve demonstrates normal distal latency with reduced amplitude and reduced conduction velocity. Right peroneal motor response demonstrates prolonged distal latency with reduced amplitude and conduction velocity. Tibial motor conduction velocity is decreased bilaterally with borderline reduced amplitude on the right. Prolonged tibial and peroneal F waves prolonged sural latency on the left side. Prolonged left superficial peroneal latency. Needle EMG testing reveals 1+ fibrillations bilaterally in the anterior tibialis with decreased recruitment. Motor units of increased amplitude and duration noted bilaterally in the peroneus longus and gastrocnemius. Electrodiagnostic impression: This is an abnormal study in the lower limbs 1. Electrodiagnostic findings are consistent with peripheral polyneuropathy, motor greater than sensory. 2. No electrodiagnostic evidence is noted for acute lumbosacral radiculopathy.
== END | disposition home or self-care (01) ==
PROVIDERS: PCP Family Medicine; Referring Provider Student in an Organized Health Care Education/Training Program; Visit Provider Student in an Organized Health Care Education/Training Program
DX: G60.9 Hereditary and idiopathic neuropathy, unspecified (principal)
CPT/HCPCS: 95886; 95912

== ENCOUNTER → 2022-01-22 | Outpatient (CLI) | payer MEDICARE, SELFPAY ==
--- NOTE | 2022-01-22 12:41 | CDU_ITS ---
Reason For Study: carotid stenosis Rt. Velocities/BP Lt. Velocities/BP Prox CCA 69.5/8.2 cm/sec. Prox CCA 74.0/9.0 cm/sec. Mid CCA 56.5/12.1 cm/sec. Mid CCA 83.8/5.3 cm/sec. Dist CCA 52.6/9.5 cm/sec. Dist CCA 72.8/9.0 cm/sec. Prox ICA 54.4/10.2 cm/sec. Prox ICA 97.3/10.2 cm/sec. Mid ICA 77.7/13.9 cm/sec. Mid ICA 85.1/18.8 cm/sec. Dist ICA 72.8/16.3 cm/sec. Dist ICA 96.1/18.8 cm/sec. Rt. ICA/CCA = 1.4. Lt. ICA/CCA = 1.2. Prox ECA 101.0/7.9 cm/sec. Prox ECA 96.1/9.0 cm/sec. Rt. Vert. 38.4/10.2 cm/sec. Lt. Vert. 93.6/18.8 cm/sec. Right Extracranial There is heterogeneous, irregular atherosclerotic plaque noted in the right common carotid artery. There is heterogeneous, irregular atherosclerotic plaque noted in the right internal carotid artery. The atherosclerotic plaque causes acoustic shadowing. There is heterogeneous, irregular atherosclerotic plaque noted in the right external carotid artery. Antegrade flow is noted in the right vertebral artery. Left Extracranial There is heterogeneous, irregular atherosclerotic plaque noted in the left common carotid artery. There is heterogeneous, irregular atherosclerotic plaque noted in the left internal carotid artery. There is heterogeneous, irregular atherosclerotic plaque noted in the left external carotid artery. Antegrade flow is noted in the left vertebral artery. Procedure Carotid Duplex [id number]. This is a Carotid Duplex examination using B-mode, color flow and specral Doppler. The exam was diagnostic. Exam performed in department. VL/Carotid Duplex Ultrasound Interpretation Summary Mild (<50%) stenosis right extracranial internal carotid. Mild (<50%) stenosis left extracranial internal carotid. Patent and antegrade vertebrals bilaterally. May be limited due to calcific shadowing Ordering Physician: Tray Parkinson Performed By: Lavelle Wiggins RVT
--- NOTE | 2022-01-22 12:41 | ADUL_ITS ---
Reason For Study: Prominent R POP pulse, eval for aneurysm Right Velocities Ext. Iliac Artery, dist = 132.6 cm./sec. Common Femoral Artery, mid = 119.8 cm./sec. Supf Femoral Artery, prox = 96.1 cm./sec. Supf Femoral Artery, mid = 118.0 cm./sec. Supf Femoral Artery, dist. = 128.8 cm./sec. Profunda Femoral Artery = 76.0 cm./sec. Popliteal Artery, mid = 77.7 cm./sec. Post. Tibial Artery, prox = 25.0 cm./sec. Post. Tibial Artery, mid = 23.2 cm./sec. Post. Tibial Artery, dist = 21.5 cm./sec. Peroneal Artery, prox = 44.1 cm./sec. Peroneal Artery, mid = 56.3 cm./sec. Peroneal Artery,dist = 65.1 cm./sec. Ant. Tibial Artery, prox = 59.8 cm./sec. Ant. Tibial Artery, mid = 52.8 cm./sec. Ant. Tibial Artery, dist = 56.3 cm./sec. Dist External Iliac Art .79 x .8 cm. CENTRIFUGAL CHILLER TECHNICIAN .9 x 1.01 cm. Profunda .43 x .39 cm. Prox SFA .49 x .57 cm. Mid SFA .54 x .56 cm. Dist SFA .58 x .65 cm. Prox POP .76 x .66 cm. Mid POP .53 x .66 cm. Dist POP .43 x .5 cm. Possible mobile plaque seen in the CENTRIFUGAL CHILLER TECHNICIAN. /US Art Duplex Unilat Lower Ext Interpretation Summary Patent right lower extremity vessels with scattered atherosclerosis bu no focal stenosis. Normal caliber throughout Ordering Physician: Tray Parkinson Performed By: Lavelle Wiggins, RVT
== END | disposition home or self-care (01) ==
LOC: CVS 12:39
PROVIDERS: PCP Family Medicine; Referring Provider Surgery Trauma Surgery; Visit Provider Surgery Trauma Surgery
DX: I72.4 Aneurysm of artery of lower extremity (principal); I65.22 Occlusion and stenosis of left carotid artery
CPT/HCPCS: 93880; 93926

== ENCOUNTER → 2022-01-28 | Outpatient (CLI) | payer MEDICARE, SELFPAY ==
[2022-01-28 09:45] LABS: Absolute Lymphocyte Count 1.11 X10^3/uL (0.83-4.51); Basophil# 0.07 X10^3/uL; Basophil% 0.6 % (0-1); Eosinophil# 0.13 X10^3/uL; Eosinophils% 1.1 % (0-5); Hematocrit 38.5 % (40-54); Hemoglobin 12.6 g/dL (13.0-16.5); Lymphocyte # 1.11 X10^3/ul (0.83-4.51); Lymphocyte % 9.5 % (19-41); Mean Corp Hgb Conc 32.7 g/dL (32-36); Mean Corpuscular Volume 94.6 fL (80-94); Mean Platelet Vol. 10.6 fl (6.2-12.0); Monocyte# 1.26 X10^3/uL; Monocyte% 10.8 % (0-10); NRBC Flagged by Analyzer 0 % (0-5); Neutrophil # 9.03 X10^3/uL (2.7-7.7); Neutrophil % 77.7 % (47-70); Platelet Count 198 K/mm3 (150-450); RBC Distribution Width CV 14.8 % (11.6-14.6); RBC Distribution Width SD 51.7 fl (35.1-43.9); Red Blood Count 4.07 M/mm3 (4.6-6.2); White Blood Count 11.6 K/mm3 (4.4-11.0)
[2022-01-28 10:10] LABS: Hemoglobin A1c 6.2 % (3.8-5.6)
[2022-01-28 10:20] LABS: AST(SGOT) 21 U/L (15-37); Alanine Aminotransfer ALT/SGPT 35 U/L (16-61); Albumin, Serum 3.6 g/dL (3.2-5.0); Alkaline Phosphatase 84 U/L (45-117); Anion Gap 5 (5-15); BUN 22 mg/dL (7-18); Calcium,Total 9.5 mg/dL (8.5-10.1); Chloride 106 mmol/L (98-107); Cholesterol 116 mg/dL (200); Creatinine, Serum 1.05 mg/dL (0.70-1.30); EST Glomerular Filtration Rate 71 mL/min (>60); Est Glom Filt Rate - Afr Amer 86 mL/min (>60); Globulin 3.6 g/dL (2.2-4.2); Glucose 110 mg/dL (74-106); High Density Lipoprotein 53 mg/dL; Potassium 4.8 mmol/L (3.5-5.1); Protein, Total 7.2 g/dL (6.4-8.2); Sodium Level 137 mmol/L (136-145); T4 Free Direct 0.99 ng/dL (0.76-1.46); Thyroid Stim Hormone (TSH) 5.67 uIU/mL (0.358-3.74); Triglycerides 106 mg/dL; Very Low Density Lipoprotein 21 mg/dL (5-40)
== END | disposition home or self-care (01) ==
PROVIDERS: PCP Family Medicine; Referring Provider Family Medicine; Visit Provider Family Medicine
DX: I25.10 Atherosclerotic heart disease of native coronary artery without angina pectoris (principal); E11.40 Type 2 diabetes mellitus with diabetic neuropathy, unspecified; I10 Essential (primary) hypertension; E03.9 Hypothyroidism, unspecified; E78.00 Pure hypercholesterolemia, unspecified
CPT/HCPCS: 36415; 80053; 80061; 83036; 84439; 84443; 85025

== ENCOUNTER → 2022-08-04 | Outpatient (CLI) | payer MEDICARE, SELFPAY ==
[2022-08-04 12:53] LABS: Absolute Neutrophil Count 5.4 X10^3/uL (2.0-7.7); Basophil# 0.11 X10^3/uL; Basophil% 1.3 % (0-1); Eosinophil# 0.37 X10^3/uL; Eosinophils% 4.4 % (0-5); Hematocrit 38.8 % (40-54); Lymphocyte % 19.2 % (19-41); Mean Corp Hgb Conc 30.9 g/dL (32-36); Mean Corpuscular Hgb 27.8 pg (27.0-32.0); Mean Platelet Vol. 10.8 fl (6.2-12.0); Monocyte# 0.82 X10^3/uL; Monocyte% 9.8 % (0-10); NRBC Flagged by Analyzer 0 % (0-5); Neutrophil # 5.39 X10^3/uL (2.7-7.7); Neutrophil % 64.6 % (47-70); Platelet Count 250 K/mm3 (150-450); RBC Distribution Width CV 15.8 % (11.6-14.6); RBC Distribution Width SD 51.9 fl (35.1-43.9); Red Blood Count 4.31 M/mm3 (4.6-6.2); White Blood Count 8.4 K/mm3 (4.4-11.0)
[2022-08-04 13:16] LABS: AST(SGOT) 36 U/L (15-37); Alanine Aminotransfer ALT/SGPT 49 U/L (16-61); Albumin, Serum 3.5 g/dL (3.2-5.0); Alkaline Phosphatase 81 U/L (45-117); Anion Gap 8 (5-15); BUN 29 mg/dL (7-18); BUN/Creat Ratio 25.4 RATIO (10-20); Calcium,Total 9.5 mg/dL (8.5-10.1); Chloride 105 mmol/L (98-107); Cholesterol 122 mg/dL (200); Creatinine, Serum 1.14 mg/dL (0.70-1.30); EST Glomerular Filtration Rate 64 mL/min (>60); Est Glom Filt Rate - Afr Amer 78 mL/min (>60); Globulin 3.4 g/dL (2.2-4.2); Glucose 118 mg/dL (74-106); High Density Lipoprotein 47 mg/dL; LDH 205 U/L (87-241); Potassium 4.7 mmol/L (3.5-5.1); Protein, Total 6.9 g/dL (6.4-8.2); Sodium Level 138 mmol/L (136-145); T4 Free Direct 1.27 ng/dL (0.76-1.46); Thyroid Stim Hormone (TSH) 2.48 uIU/mL (0.358-3.74); Triglycerides 96 mg/dL; Very Low Density Lipoprotein 19 mg/dL (5-40)
== END | disposition home or self-care (01) ==
LOC: BFHLAB 08:50
PROVIDERS: PCP Family Medicine; Visit Provider Family Medicine
DX: E11.40 Type 2 diabetes mellitus with diabetic neuropathy, unspecified (principal); I25.10 Atherosclerotic heart disease of native coronary artery without angina pectoris; E03.9 Hypothyroidism, unspecified; R63.4 Abnormal weight loss
CPT/HCPCS: 36415; 80053; 80061; 83615; 84439; 84443; 85025

== ENCOUNTER → 2023-01-22 | Outpatient (CLI) | payer MEDICARE, SELFPAY ==
--- NOTE | 2023-01-22 12:58 | CDU_ITS ---
Reason For Study: Carotid stenosis Rt. Velocities/BP Lt. Velocities/BP Prox CCA 62.6/6.9 cm/sec. Prox CCA 59.8/8.8 cm/sec. Mid CCA 42.8/5 cm/sec. Mid CCA 61.7/11.6 cm/sec. Dist CCA 40.9/6.9 cm/sec. Dist CCA 85.3/10.7 cm/sec. Prox ICA 74.9/16.3 cm/sec. Prox ICA 59.8/11.6 cm/sec. Mid ICA 72.1/17.3 cm/sec. Mid ICA 75.9/17.3 cm/sec. Dist ICA 63.6/13.5 cm/sec. Dist ICA 75.9/17.3 cm/sec. Rt. ICA/CCA = 1.75. Lt. ICA/CCA = 1.23. Prox ECA 88.1 cm/sec. Prox ECA 71.1 cm/sec. Rt. Vert. 46.6/13.5 cm/sec. Lt. Vert. 66.4/13.5 cm/sec. Right Extracranial There is heterogeneous, irregular atherosclerotic plaque noted in the right common carotid artery. There is heterogeneous, irregular atherosclerotic plaque noted in the right internal carotid artery. The atherosclerotic plaque causes acoustic shadowing. There is heterogeneous, irregular atherosclerotic plaque noted in the right external carotid artery. Antegrade flow is noted in the right vertebral artery. Left Extracranial There is heterogeneous, irregular atherosclerotic plaque noted in the left common carotid artery. There is heterogeneous, irregular atherosclerotic plaque noted in the left internal carotid artery. There is heterogeneous, irregular atherosclerotic plaque noted in the left external carotid artery. Antegrade flow is noted in the left vertebral artery. Procedure This is a Carotid Duplex examination using B-mode, color flow and specral Doppler. Carotid Duplex [id number]. Exam performed in department. VL/Carotid Duplex Ultrasound Interpretation Summary Mild (<50%) stenosis right extracranial internal carotid. Mild (<50%) stenosis left extracranial internal carotid. Patent and antegrade vertebrals bilaterally. Ordering Physician: Tray Parkinson Referring Physician: Delfino Carrizales Performed By: Carmen Shelton RVT
== END | disposition home or self-care (01) ==
LOC: CVS 12:57
PROVIDERS: PCP Family Medicine; Referring Provider Surgery Trauma Surgery; Visit Provider Surgery Trauma Surgery
DX: I65.22 Occlusion and stenosis of left carotid artery (principal)
CPT/HCPCS: 93880

== ENCOUNTER → 2023-08-03 | Outpatient (CLI) | payer MEDICARE, SELFPAY ==
--- NOTE | 2023-08-03 09:38 | ADUL_ITS ---
Reason For Study: PVD Left Velocities Ext Iliac Artery, dist = 127.5 cm./sec. Common Femoral Artery, mid = 172.5 cm./sec. Common Femoral Artery, dist = 190.7 cm./sec. Supf. Femoral Artery, prox = 249.5 cm./sec. Supf. Femoral Artery, prox (Post Stenosis) = 104.4cm./sec. Supf. Femoral Artery, mid = 83.4 cm./sec. Supf. Femoral Artery, dist = 69.8 cm./sec. Profunda Femoral Artery = 146.2 cm./sec. Popliteal Artery, proximal, = 96.1 cm./sec. Popliteal Artery, mid = 65.0 cm./sec. Popliteal Artery, distal = 52.2 cm./sec. Post. Tibial Artery, prox = 49.7 cm./sec. Post Tibial Artery, mid = 35.5 cm./sec. Post Tibial Artery, dist. = 103.4 cm./sec. Peroneal Artery, prox = 36.5 cm./sec. Peroneal Artery, mid = 81.8 cm./sec. Peroneal Artery,dist. = 76.1 cm./sec. Ant.Tibial Artery, prox = 35.5 cm./sec. Ant Tibial Artery, mid = 108.9 cm./sec. Ant. Tibial Artery, distal = 67.2 cm./sec. LLE Transverse artery measurements MARINE ENGINEERING PROFESSOR - 0.90 x 0.91 cm Prox SFA - 0.61 x 0.70 cm Mid SFA - 0.59 x 0.58 cm Dist SFA - 0.56 x 0.58 cm Prox POP 0.59 x 0.65 cm. Mid POP 0.43 x 0.49 cm. Dist POP 0.61 x 0.60 cm. Procedure The exam was diagnostic. LLE Arterial duplex with B-Mode, Color Doppler and Pulsed Wave Doppler. /US Art Duplex Unilat Lower Ext Interpretation Summary Left lower extremity arteries patent with >50 % stenosis identified in the SFA, posterior tibial, and anterior tibial arteries. Ordering Physician: Delfino Carrizales Referring Physician: Delfino Carrizales Performed By: Yonatan Cornell RVT
== END | disposition home or self-care (01) ==
LOC: CVS 09:37
PROVIDERS: PCP Family Medicine; Referring Provider Family Medicine; Visit Provider Family Medicine
DX: I73.9 Peripheral vascular disease, unspecified (principal)
CPT/HCPCS: 93926

== ENCOUNTER → 2023-08-09 | Outpatient (CLI) | payer MEDICARE, SELFPAY ==
[2023-08-09 12:36] LABS: Absolute Lymphocyte Count 1.43 X10^3/uL (0.83-4.51); Absolute Neutrophil Count 4.2 X10^3/uL (2.0-7.7); Basophil# 0.09 X10^3/uL; Basophil% 1.3 % (0-1); Eosinophil# 0.25 X10^3/uL; Eosinophils% 3.7 % (0-5); Hematocrit 38.9 % (40-54); Hemoglobin 11.8 g/dL (13.0-16.5); Lymphocyte # 1.43 X10^3/ul (0.83-4.51); Lymphocyte % 21.2 % (19-41); Mean Corp Hgb Conc 30.3 g/dL (32-36); Mean Corpuscular Hgb 28.7 pg (27.0-32.0); Mean Corpuscular Volume 94.6 fL (80-94); Mean Platelet Vol. 11.4 fl (6.2-12.0); Monocyte# 0.74 X10^3/uL; NRBC Flagged by Analyzer 0 % (0-5); Neutrophil # 4.19 X10^3/uL (2.7-7.7); Neutrophil % 62.2 % (47-70); Platelet Count 203 K/mm3 (150-450); RBC Distribution Width CV 15.8 % (11.6-14.6); RBC Distribution Width SD 54.8 fl (35.1-43.9); Red Blood Count 4.11 M/mm3 (4.6-6.2); White Blood Count 6.7 K/mm3 (4.4-11.0)
[2023-08-09 13:12] LABS: AST(SGOT) 27 U/L (15-37); Alanine Aminotransfer ALT/SGPT 45 U/L (16-61); Albumin, Serum 3.5 g/dL (3.2-5.0); Alkaline Phosphatase 77 U/L (45-117); Anion Gap 6 (5-15); BUN 26 mg/dL (7-18); BUN/Creat Ratio 25.7 RATIO (10-20); Calcium,Total 9.4 mg/dL (8.5-10.1); Chloride 108 mmol/L (98-107); Cholesterol 119 mg/dL (200); Creatinine, Serum 1.01 mg/dL (0.70-1.30); EST Glomerular Filtration Rate 74 mL/min (>60); Est Glom Filt Rate - Afr Amer 89 mL/min (>60); Globulin 3.5 g/dL (2.2-4.2); Glucose 105 mg/dL (74-106); High Density Lipoprotein 53 mg/dL; Potassium 4.6 mmol/L (3.5-5.1); Sodium Level 140 mmol/L (136-145); Thyroid Stim Hormone (TSH) 3.16 uIU/mL (0.358-3.74); Triglycerides 104 mg/dL; Very Low Density Lipoprotein 21 mg/dL (5-40)
== END | disposition home or self-care (01) ==
LOC: BFHLAB 10:12
PROVIDERS: PCP Family Medicine; Visit Provider Family Medicine
DX: E11.40 Type 2 diabetes mellitus with diabetic neuropathy, unspecified (principal); I25.10 Atherosclerotic heart disease of native coronary artery without angina pectoris; E03.9 Hypothyroidism, unspecified
CPT/HCPCS: 36415; 80053; 80061; 84443; 85025

== ENCOUNTER → 2024-01-03 | Outpatient (CLI) | payer MEDICARE, SELFPAY ==
--- NOTE | 2024-01-03 08:46 | CDU_ITS ---
Reason For Study: Stenosis, Lt Endart Rt. Velocities/BP Lt. Velocities/BP Prox CCA 71/7 cm/sec. Prox CCA 80/11 cm/sec. Mid CCA 64/0 cm/sec. Mid CCA 79/12 cm/sec. Dist CCA 42/5 cm/sec. Dist CCA 95/13 cm/sec. Prox ICA 98/17 cm/sec. Prox ICA 69/8 cm/sec. Mid ICA 92/16 cm/sec. Mid ICA 69/13 cm/sec. Dist ICA 71/16 cm/sec. Dist ICA 73/16 cm/sec. Rt. ICA/CCA = 1.5. Lt. ICA/CCA = 0.9. Prox ECA 78/0 cm/sec. Prox ECA 81/0 cm/sec. Rt. Vert. 38/8 cm/sec. Lt. Vert. 64/16 cm/sec. Right Extracranial There is heterogeneous, irregular atherosclerotic plaque noted in the right common carotid artery. There is heterogeneous, irregular atherosclerotic plaque noted in the right internal carotid artery. The atherosclerotic plaque causes acoustic shadowing. There is heterogeneous, irregular atherosclerotic plaque noted in the right external carotid artery. Antegrade flow is noted in the right vertebral artery. Left Extracranial There is heterogeneous, irregular atherosclerotic plaque noted in the left common carotid artery. There is heterogeneous, irregular atherosclerotic plaque noted in the left internal carotid artery. There is intimal thickening but no significant atherosclerotic plaque noted in the left external carotid artery. Antegrade flow is noted in the left vertebral artery. Procedure Carotid Duplex [id number]. This is a Carotid Duplex examination using B-mode, color flow and specral Doppler. Exam performed in department. VL/Carotid Duplex Ultrasound Interpretation Summary Mild (<50%) stenosis right extracranial internal carotid. Mild (<50%) stenosis left extracranial internal carotid. Patent and antegrade vertebrals bilaterally. Ordering Physician: Casandra Duron Referring Physician: Delfino Carrizales Performed By: Michelle To, RDCS, RVT
== END | disposition home or self-care (01) ==
LOC: CVS 08:44
PROVIDERS: PCP Family Medicine; Referring Provider Physician Assistant; Visit Provider Physician Assistant
DX: I65.22 Occlusion and stenosis of left carotid artery (principal)
CPT/HCPCS: 93880

== ENCOUNTER 2024-01-06 06:51 | Emergency (ER) | payer MEDICARE, SELFPAY ==
[2024-01-06 06:52] VITALS: BP 189/95; PULSE 60; RESP 16; TEMP 36.8; O2SAT 95; BMI 22.1
[2024-01-06 06:55] VITALS: O2SAT 95
--- NOTE | 2024-01-06 07:07 | CT_ITS ---
EXAM: CT HEAD WITHOUT INTRAVENOUS CONTRAST CLINICAL INDICATION: HEAD INJURY TECHNIQUE: Multiple axial images were obtained of the head without intravenous contrast. This CT exam was performed using one or more of the following dose reduction techniques: automated exposure control, adjustment of the mA and/or kV according to patient size, and/or use of iterative reconstruction technique. RADIATION DOSE: CTDIvol = 44.99 mGy, DLP = 846.73 mGy-cm COMPARISON: No relevant prior studies available. FINDINGS: BRAIN AND EXTRA-AXIAL SPACES: Mild generalized atrophy. Mild low density bilaterally in the deep white matter. No intra- or extra-axial hemorrhage. No evidence of acute infarct. No intracranial mass or mass effect. There is preservation of the loyd/white matter interface. Posterior fossa structures are unremarkable. No hydrocephalus. Basal cisterns are patent. BONES/JOINTS: Unremarkable. No discrete lytic or blastic abnormalities. SINUSES: Unremarkable as visualized. Clear. MASTOID AIR CELLS: Unremarkable. Clear. ORBITS: Visualized globes, extraocular muscles, optic nerves and retrobulbar fat appear unremarkable. CT/Brain/Head without Contrast IMPRESSION: Mild generalized atrophy. Mild low density bilaterally in the deep white matter. This likely represents chronic small vessel ischemic changes in the deep white matter. Electronically Signed: Prakash Quiroga MD at 7:28 EDT ,
--- NOTE | 2024-01-06 07:07 | RAD_ITS ---
EXAM: XR RIGHT TOES, 2 OR MORE VIEWS CLINICAL INDICATION: injury TECHNIQUE: Frontal, lateral and oblique views of the toes of the right foot. COMPARISON: No relevant prior studies available. FINDINGS: BONES/JOINTS: Nondisplaced intra-articular fracture medial base of the proximal phalanx of the 4th toe. Marked joint space narrowing with mild subchondral sclerosis and mild marginal osteophytes 1st metatarsal phalangeal joint. The bones are diffusely osteopenic. No dislocation. SOFT TISSUES: Unremarkable. No radiopaque foreign body. VASCULATURE: Diffuse vascular calcifications. RAD/Toe(s) Min 2 Views IMPRESSION: 1. Nondisplaced intra-articular fracture medial base of the proximal phalanx of the 4th toe. 2. Grade 3 osteoarthritis 1st metatarsal phalangeal joint. Electronically Signed: Prakash Quiroga MD at 7:44 EDT ,
--- NOTE | 2024-01-06 07:09 | EDS_ITS ---
HPI History of Present Illness Chief Complaint: Fall Detail of Chief Complaint: Fall with injury to right fourth toe Informant: patient Narrative Narrative: Patient presents to the emergency department with complaint of a fall in the shower last night just before 11 PM. Patient states that he caught his right toe on the edge of the shower tub and then fell out. States he hit his shoulders and head on the wall and then fell onto his bottom. Patient initially did not realize his toe was bleeding. He is on Eliquis. Denies loss of consciousness. Denies neck pain. Denies chest pain or abdominal pain. He just describes some mild soreness in both shoulders. [facility] Medical History Actinic keratosis Allergies Atherosclerosis of coronary artery of [place] heart without angina pectoris Back problem Basal cell carcinoma of skin of right upper lip Cataracts, bilateral Constipation COPD (chronic obstructive pulmonary disease) Elevated liver enzymes Essential (primary) hypertension Family history of prostate problems Former smoker Hearing problem Hepatic cyst Hyperlipidemia Laceration of right hand Left carotid artery stenosis Neoplasm of skin of ear Neoplasm of skin of lip Neuropathy Obstructive sleep apnea Osteoarthritis Paroxysmal atrial fibrillation Self-catheterizes urinary bladder Sick sinus syndrome Symptomatic bradycardia TIA (transient ischemic attack) Type II diabetes mellitus Urethral stricture Vertebral artery stenosis Home Medications ?Medication ?Instructions ?Recorded ?Last Taken ?Type zolpidem 5 mg tablet 5 mg PO QHS sleep 12/01/13 06/11/15 History loratadine 10 mg tablet (Allergy 10 mg PO DAILY 08/07/19 Unknown History Relief (loratadine)) vitamins A,C,M-ghso-vopppi 4,296 1 ea PO BID 05/10/20 Unknown History mcg-226 mg-90 mg capsule aspirin 81 mg chewable tablet 81 mg PO DAILY@0800 06/05/20 06/02/20 History rosuvastatin 10 mg tablet 10 mg PO DAILY 01/14/21 Unknown History levothyroxine 50 mcg tablet 50 mcg PO DAILY 12/03/21 Unknown History metformin 500 mg tablet,extended 500 mg PO BID diabetes 12/03/21 Unknown History release 24 hr vitamin B complex 1 tab PO DAILY 12/03/21 Unknown History lisinopril 20 mg tablet 20 mg PO BID #180 tabs 03/22/23 Unknown Rx amlodipine 5 mg tablet 5 mg PO LUNCH #90 tabs 04/05/23 Unknown Rx apixaban 5 mg tablet 5 mg PO BID heart #180 tabs 07/28/23 Unknown Rx amiodarone 200 mg tablet See Rx Instructions .Route 08/30/23 Unknown Rx .COMPLEX #90 tabs metoprolol tartrate 25 mg tablet See Rx Instructions .Route 09/09/23 Unknown Rx .COMPLEX #180 tabs cephalexin 500 mg capsule 500 mg PO Q8H #42 CAPSULES 01/06/24 Unknown Rx Allergy/AdvReac Type Severity Reaction Status Date / Time Seasonal Allergies: Uncoded Allergy Intermediate congestion Verified 01/06/24 06:52 poison shay extract Allergy Rash Verified 01/06/24 06:52 venom-honey bee Allergy Swelling Verified 01/06/24 06:52 codeine AdvReac Vomiting Verified 01/06/24 06:52 Family History Mother Hypertension History of blood clots Uncle Heart disease CVA (cerebral vascular accident) Uncle Heart disease Grandmother CVA (cerebral vascular accident) Surgical History History of basal cell carcinoma excision History of coronary artery stent placement (09/25/03) History of ectropion repair (07/21/22) History of left heart catheterization (02/27/11) History of left-sided carotid endarterectomy (07/2003) 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) History of prostate surgery History of right knee joint replacement Social History Smoking Status: Former smoker how long ago did patient quit smokin alcohol intake: former year quit: 1999 substance use type: does not use caffeine: Yes Type: coffee Number of servings: 2 additional social history: does take aspirin ROS ROS ED Review of Systems ROS Unobtainable: other Constitutional Constitutional ED: Reports lethargy; Denies chills, fever(s), sweats or weight loss Eyes Eyes: Denies blurry vision, change in vision or diplopia ENT ENT ED: Denies rhinorrhea or sore throat Cardiovascular Cardiovascular: Denies chest pain, orthopnea or racing heartbeat Respiratory/Chest Respiratory/Chest: Denies cough, dyspnea, dyspnea on exertion, orthopnea or sputum Gastrointestinal Gastrointestinal: Denies abdominal pain, diarrhea, nausea or vomiting Genitourinary Genitourinary ED: Denies dysuria, hematuria or urinary frequency Musculoskeletal Musculoskeletal: Reports other Details: Injury to right fourth toe ; Denies arthralgias, back pain, myalgias or neck pain Integumentary Denies abscess, Abrasions or rash Neurologic Neurologic: Reports headache(s); Denies weakness Psychiatric Psychiatric: Denies anxiety, depression or suicidal thoughts Endocrine Endocrinology: Denies polydipsia, polyphagia or polyuria Hematologic/Lymphatic Hematologic/Lymphatic: Denies easy bleeding, easy bruising or lymphadenopathy Allergic/Immunologic Allergic/Immunologic ED: Denies mouth swelling, tongue swelling or urticaria EXAM Physical Exam Const Vital Signs: 01/06/24 06:52 01/06/24 06:55 Temperature 98.2 F Temperature Source Oral Pulse Rate 60 Respiratory Rate 16 Respiratory Effort Normal Non-Labored Respiratory Depth Normal Respiratory Pattern Normal Blood Pressure 189/95 H Blood Pressure Mean 126 Pulse Ox 95 95 Oxygen Delivery Method Room Air Room Air Positive well nourished and well developed General Appearance ED: well developed and NAD HEENT Reports TM's clear and moist mucous membranes HEENT Narrative: No C-spine tenderness on palpation. normocephalic and atraumatic; Negative for trauma or tenderness Tympanic Membrane ED: Yes TM's clear Eyes PERRL and EOMs intact bilaterally General Eye ED: Negative for pale conjunctiva or scleral icterus Neck no lymphadenopathy, supple and no JVD General: Negative for tenderness Chest Wall inspection of chest normal and palpation of chest normal Chest: Negative for tenderness Resp normal respiratory effort and clear to auscultation bilaterally Effort and Inspection: Negative for respiratory distress or pain with movement Auscultation: Negative for rhonchi, wheezes or diminished lung sounds Cardio regular rate, regular rhythm, S1 normal heart sound, S2 normal heart sound and no murmurs Peripheral Pulses: pulses 2+ throughout GI normal to inspection, nondistended, normoactive bowel sounds, soft to palpation, non-tender, non-distended and no masses Back/Spine no CVA tenderness and no thoracic nor lumbar tenderness Extremity normal to inspection Extremity Narrative: Mild diffuse tenderness over the glenohumeral joints bilaterally. No bony deformities noted. Normal range of motion bilaterally. Neurovascular intact distally. General Extremety ED: Negative for edema General Extremity: Negative for edema Neuro oriented x3, CN's II-XII intact bilaterally, no sensory deficits noted and gait normal Sensorium / Orientation: awake, alert, oriented to person, oriented to place and oriented to time Motor Exam: strength 5/5 throughout and strength abnormal Psych mental status grossly normal Skin no rashes or lesions noted and no wounds PROC Procedures Lacerations Right fourth toe laceration: Length: 0.98 in Depth: Skin Shape: Linear Prep: Shure-Clens Laceration repair: Irrigated, Lidocaine and Skin sutures Irrigated (ml): 50 Number of Sutures/[place]: 4 Suture Information: Ethilon, Simple and 5-0 MDM MDM MDM Narrative Medical decision making narrative: Patient with a fall and injury to his right fourth toe. He is on Eliquis. He did hit his head but no loss of consciousness. CT scan of the brain without contrast obtained showed no traumatic injury. X-rays of the right toes obtained showed fracture at the base of the proximal phalanx and I have concern there may be a fracture through the midportion of the middle phalanx as well. The laceration seems to go into the DIP joint. Laceration is just proximal to the nail and nail fold. Please see procedure note for repair of laceration. I did irrigate the wound with copious saline. Discussed case with Dr. Riggins who is covering for of podiatry. Dr. Riggins agrees with plan and will start on Keflex for 2 weeks. I was asked to have the patient follow-up with Dr. Riggins or within the next 5 to 7 days. Radiography Diagnostic Testing: Clinical Impression(s) from Imaging Studies Brain CT 01/06/24 07:07 IMPRESSION: Mild generalized atrophy. Mild low density bilaterally in the deep white matter. This likely represents chronic small vessel ischemic changes in the deep white matter. Electronically Signed: Prakash Quiroga MD at 7:28 EDT , Toe X-Ray 01/06/24 07:07 IMPRESSION: 1. Nondisplaced intra-articular fracture medial base of the proximal phalanx of the 4th toe. 2. Grade 3 osteoarthritis 1st metatarsal phalangeal joint. Electronically Signed: Prakash Quiroga MD at 7:44 EDT , Three-view x-rays of the toes of the right foot obtained interpreted by myself is fracture of the base of the proximal phalanx with possible fracture of the mid middle phalanx. Radiology in agreement regarding the fracture of the proximal phalanx. Discharge Plan Triage Chief Complaint: Fall ED Provider: Kelsey Capellan Dx/Rx/DC Orders Clinical Impression: Fracture of toe, Laceration of toe Instructions: ED Laceration, Foot: All Closures, ED Fracture, Toe, Open Prescriptions: New cephalexin 500 mg capsule 500 mg PO Q8H Qty: 42 0RF No Action loratadine [Allergy Relief (loratadine)] 10 mg tablet 10 mg PO DAILY rosuvastatin 10 mg tablet 10 mg PO DAILY levothyroxine 50 mcg tablet 50 mcg PO DAILY vitamin B complex Tablet 1 tab PO DAILY amiodarone 200 mg tablet See Rx Instructions .ROUTE .COMPLEX Qty: 90 3RF Dose Instruction: TAKE 1 TABLET EVERY DAY FOR HEART Rx Instructions: TAKE 1 TABLET EVERY DAY FOR HEART zolpidem 5 MG tablet 5 mg PO QHS metformin 500 mg tablet extended release 24 hr 500 mg PO BID Patient Comments: take 1 tablet by mouth once daily WITH EVENING MEAL vitamins A,C,J-bbif-izwhai 1 EACH capsule 1 ea PO BID aspirin 81 MG tablet,chewable 81 mg PO DAILY@0800 lisinopril 20 mg tablet 20 mg PO BID Qty: 180 3RF amlodipine 5 mg tablet 5 mg PO LUNCH Qty: 90 3RF apixaban 5 mg tablet 5 mg PO BID Qty: 180 3RF metoprolol tartrate 25 mg tablet See Rx Instructions .ROUTE .COMPLEX Qty: 180 4RF Dose Instruction: TAKE 1 TABLET TWICE DAILY FOR HEART Rx Instructions: TAKE 1 TABLET TWICE DAILY FOR HEART Primary Care Provider: Delfino Carrizales Referrals: Prakash Marshall DPM [Med Staff - Active Staff] - 5-7 Days Delfino Carrizales DO [Primary Care Provider] - Print Language: Estonian Disposition Disposition: Home, Self Care
[2024-01-06] MEDS: Lidocaine 1% (20 ml mdv) 20 ML Vial 6 ML INFILT (07:16)
[2024-01-06] MEDS: Cephalexin 250 MG Capsule 500 MG PO (07:58)
[2024-01-06 08:25] VITALS: BP 173/74; PULSE 80; RESP 16; TEMP 36.7; O2SAT 99
== END 2024-01-06 08:27 | disposition home or self-care (01) ==
PROVIDERS: Emergency Provider Emergency Medicine; PCP Family Medicine; Visit Provider Emergency Medicine
DX: S92.514A Nondisplaced fracture of proximal phalanx of right lesser toe(s), initial encounter for closed fracture (principal); J44.9 Chronic obstructive pulmonary disease, unspecified; I48.0 Paroxysmal atrial fibrillation; I49.5 Sick sinus syndrome; E11.40 Type 2 diabetes mellitus with diabetic neuropathy, unspecified; S91.114A Laceration without foreign body of right lesser toe(s) without damage to nail, initial encounter; W18.2XXA Fall in (into) shower or empty bathtub, initial encounter; I25.10 Atherosclerotic heart disease of native coronary artery without angina pectoris; I10 Essential (primary) hypertension; Z95.0 Presence of cardiac pacemaker; Z95.5 Presence of coronary angioplasty implant and graft; Z79.01 Long term (current) use of anticoagulants; Z79.82 Long term (current) use of aspirin; Z79.84 Long term (current) use of oral hypoglycemic drugs; Z79.899 Other long term (current) drug therapy; Z86.73 Personal history of transient ischemic attack (TIA), and cerebral infarction without residual deficits; Z87.891 Personal history of nicotine dependence
CPT/HCPCS: 12001; 70450; 73660; 99283

== ENCOUNTER 2024-01-28 09:27 | Outpatient (RCR) | payer MEDICARE, SELFPAY ==
[2024-01-27 13:05] LABS: Absolute Lymphocyte Count 0.72 X10^3/uL (0.83-4.51); Absolute Neutrophil Count 7.6 X10^3/uL (2.0-7.7); Basophil# 0.02 X10^3/uL; Basophil% 0.2 % (0-1); Eosinophil# 0.06 X10^3/uL; Eosinophils% 0.6 % (0-5); Hematocrit 31.1 % (40-54); Hemoglobin 9.8 g/dL (13.0-16.5); Lymphocyte # 0.72 X10^3/ul (0.83-4.51); Lymphocyte % 7.7 % (19-41); Mean Corp Hgb Conc 31.5 g/dL (32-36); Mean Corpuscular Hgb 28.8 pg (27.0-32.0); Mean Corpuscular Volume 91.5 fL (80-94); Mean Platelet Vol. 10.2 fl (6.2-12.0); Monocyte# 0.88 X10^3/uL; Monocyte% 9.4 % (0-10); NRBC Flagged by Analyzer 0 % (0-5); Neutrophil # 7.58 X10^3/uL (2.7-7.7); Neutrophil % 80.8 % (47-70); Platelet Count 274 K/mm3 (150-450); RBC Distribution Width CV 15.8 % (11.6-14.6); RBC Distribution Width SD 53.1 fl (35.1-43.9); White Blood Count 9.4 K/mm3 (4.4-11.0)
[2024-01-28 09:56] LABS: Anion Gap 4 (5-15); BUN 15 mg/dL (7-18); BUN/Creat Ratio 15.3 RATIO (10-20); Calcium,Total 8.8 mg/dL (8.5-10.1); Chloride 100 mmol/L (98-107); Creatinine, Serum 0.98 mg/dL (0.70-1.30); EST Glomerular Filtration Rate 76 mL/min (>60); Est Glom Filt Rate - Afr Amer 93 mL/min (>60); Glucose 92 mg/dL (74-106); Potassium 4.3 mmol/L (3.5-5.1); Sodium Level 128 mmol/L (136-145)
== END 2024-01-28 18:00 | disposition home or self-care (01) ==
LOC: HHLAB 09:27
PROVIDERS: PCP Family Medicine; Referring Provider Family Medicine; Visit Provider Family Medicine
DX: E87.1 Hypo-osmolality and hyponatremia (principal)
CPT/HCPCS: 80048; 85025

== ENCOUNTER → 2024-02-07 | Outpatient (CLI) | payer MEDICARE, SELFPAY ==
[2024-02-07 12:17] LABS: Absolute Lymphocyte Count 0.95 X10^3/uL (0.83-4.51); Absolute Neutrophil Count 6.5 X10^3/uL (2.0-7.7); Basophil# 0.06 X10^3/uL; Basophil% 0.7 % (0-1); Eosinophil# 0.07 X10^3/uL; Eosinophils% 0.8 % (0-5); Hematocrit 32.5 % (40-54); Hemoglobin 10.2 g/dL (13.0-16.5); Lymphocyte # 0.95 X10^3/ul (0.83-4.51); Lymphocyte % 11.4 % (19-41); Mean Corp Hgb Conc 31.4 g/dL (32-36); Mean Corpuscular Hgb 28.6 pg (27.0-32.0); Mean Platelet Vol. 9.3 fl (6.2-12.0); Monocyte# 0.61 X10^3/uL; Monocyte% 7.3 % (0-10); NRBC Flagged by Analyzer 0 % (0-5); Neutrophil % 78.5 % (47-70); Platelet Count 376 K/mm3 (150-450); RBC Distribution Width CV 15.4 % (11.6-14.6); RBC Distribution Width SD 50.7 fl (35.1-43.9); Red Blood Count 3.57 M/mm3 (4.6-6.2); White Blood Count 8.3 K/mm3 (4.4-11.0)
== END | disposition home or self-care (01) ==
LOC: LAB 11:07
PROVIDERS: PCP Family Medicine; Referring Provider Student in an Organized Health Care Education/Training Program; Visit Provider Student in an Organized Health Care Education/Training Program
DX: D64.9 Anemia, unspecified (principal)
CPT/HCPCS: 36415; 85025

== ENCOUNTER → 2024-02-22 | Outpatient (CLI) | payer MEDICARE, SELFPAY ==
[2024-02-22 12:13] LABS: Anion Gap 5 (5-15); BUN 13 mg/dL (7-18); BUN/Creat Ratio 15.7 RATIO (10-20); Calcium,Total 9.6 mg/dL (8.5-10.1); Chloride 100 mmol/L (98-107); Creatinine, Serum 0.83 mg/dL (0.70-1.30); EST Glomerular Filtration Rate 93 mL/min (>60); Est Glom Filt Rate - Afr Amer 113 mL/min (>60); Glucose 158 mg/dL (74-106); Potassium 4.8 mmol/L (3.5-5.1); Sodium Level 130 mmol/L (136-145)
== END | disposition home or self-care (01) ==
LOC: LAB 10:48
PROVIDERS: PCP Family Medicine; Referring Provider Otolaryngology; Visit Provider Otolaryngology
DX: Z01.812 Encounter for preprocedural laboratory examination (principal)
CPT/HCPCS: 36415; 80048

== ENCOUNTER 2024-03-01 18:52 | Emergency (ER) | payer MEDICARE, SELFPAY ==
[2024-03-01 18:53] VITALS: BP 150/61; PULSE 61; RESP 16; TEMP 35.7; O2SAT 97
--- NOTE | 2024-03-01 19:23 | CT_ITS ---
EXAMINATION : Head CT w/out contrast HISTORY : FALL COMPARISON : None. TECHNIQUE : Multiple contiguous axial images were obtained from the skull base to the vertex without intravenous contrast. A radiation dose optimization technique was used for this scan. FINDINGS : There is no evidence for acute intracranial hemorrhage, mass effect, or midline shift. There is no extra-axial fluid collection. There are periventricular white matter changes consistent with chronic microvascular ischemic disease. There is sulcal widening and ventricular enlargement consistent with cerebral atrophy. There is normal brewer-white differentiation, without CT evidence of acute ischemia or infarct. Questionable nasal bone fractures. The orbits are unremarkable. The paranasal sinuses are clear. The mastoid air cells are well-aerated. Large left supraorbital scalp hematoma. CT/Brain/Head without Contrast IMPRESSION: Questionable nasal bone fractures. Recommend maxillofacial CT for further evaluation. Large left supraorbital scalp hematoma. Chronic involutional and ischemic changes of the brain. Electronically Signed: Dann Ambriz MD at 19:59 EDT ,
--- NOTE | 2024-03-01 19:24 | EDS_ITS ---
HPI HPI - Fall History of Present Illness Chief Complaint: Fall Informant: patient and spouse/S.O. Narrative Narrative: 88-year-old male states he broke his right ankle almost 2 months ago, and has been resting a lot. He installed a new handle going down a couple of steps into his garage, and today he walked down those 2 steps and grabbed the handle and apparently it broke causing him to fall down the 2 steps injuring his head/face. No loss of consciousness. He does not have a headache he just has facial pain and he had some nosebleeding which stopped. He was wearing his glasses at the time which probably caused some of the injury. Denies any trouble with his vision right now. Other than the mild soreness on the volar aspect of his left wrist he denies any other pain or injury. His right ankle he states has been doing pretty well and has been able to walk on it without any significant discomfort. He has been wearing a boot it was treated nonoperatively. [facility] Medical History Closed nondisplaced fracture of lateral malleolus of right fibula Fracture of right ankle, lateral malleolus Constipation Laceration of right hand Sick sinus syndrome Urethral stricture Basal cell carcinoma of skin of right upper lip Actinic keratosis Former smoker Neoplasm of skin of ear Neoplasm of skin of lip Self-catheterizes urinary bladder Family history of prostate problems Neuropathy Hearing problem Cataracts, bilateral Back problem Allergies Essential (primary) hypertension TIA (transient ischemic attack) Symptomatic bradycardia Hepatic cyst Elevated liver enzymes COPD (chronic obstructive pulmonary disease) Obstructive sleep apnea Vertebral artery stenosis Osteoarthritis Left carotid artery stenosis Paroxysmal atrial fibrillation Atherosclerosis of coronary artery of [place] heart without angina pectoris Type II diabetes mellitus Hyperlipidemia Home Medications ?Medication ?Instructions ?Recorded ?Last Taken ?Type loratadine 10 mg tablet (Allergy 10 mg PO DAILY 08/07/19 01/13/24 History Relief (loratadine)) vitamins A,C,O-ksfe-npdmjq 4,296 1 ea PO BID 05/10/20 01/13/24 History mcg-226 mg-90 mg capsule aspirin 81 mg chewable tablet 81 mg PO DAILY@0800 06/05/20 01/13/24 History rosuvastatin 10 mg tablet 10 mg PO DAILY 01/14/21 01/13/24 History levothyroxine 50 mcg tablet 50 mcg PO DAILY 12/03/21 01/13/24 History metformin 500 mg tablet,extended 500 mg PO BID diabetes 12/03/21 01/13/24 History release 24 hr vitamin B complex 1 tab PO DAILY 12/03/21 01/13/24 History lisinopril 20 mg tablet 20 mg PO BID #180 tabs 03/22/23 01/13/24 Rx amlodipine 5 mg tablet 5 mg PO LUNCH #90 tabs 04/05/23 01/13/24 Rx apixaban 5 mg tablet 5 mg PO BID heart #180 tabs 07/28/23 01/13/24 Rx amiodarone 200 mg tablet See Rx Instructions .Route 08/30/23 01/13/24 Rx .COMPLEX #90 tabs metoprolol tartrate 25 mg tablet See Rx Instructions .Route 09/09/23 01/13/24 Rx .COMPLEX #180 tabs cilostazol 100 mg tablet 100 mg PO BID 01/14/24 01/13/24 History fluconazole 40 mg/mL oral 200 mg (5 mL) PO DAILY 6 days #30 01/18/24 Unknown Rx suspension mL oxycodone 5 mg tablet 2.5 - 5 mg (0.5 - 1 x 5 mg) PO Q4H 01/18/24 Unknown Rx PRN PRN Pain Score 4-10 5 days #20 tabs sennosides 8.6 mg-docusate sodium 2 tab PO BID 30 days #120 tabs 01/18/24 Unknown Rx 50 mg tablet (Stimulant Laxative Plus) gabapentin 100 mg capsule 100 mg PO TID PRN 02/07/24 Unknown History Allergy/AdvReac Type Severity Reaction Status Date / Time Seasonal Allergies: Uncoded Allergy Intermediate congestion Verified 03/01/24 18:53 poison shay extract Allergy Rash Verified 03/01/24 18:53 venom-honey bee Allergy Swelling Verified 03/01/24 18:53 codeine AdvReac Vomiting Verified 03/01/24 18:53 Family History Mother Hypertension History of blood clots Uncle Heart disease CVA (cerebral vascular accident) Uncle Heart disease Grandmother CVA (cerebral vascular accident) Surgical History History of ectropion repair (07/21/22) History of basal cell carcinoma excision 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) History of prostate surgery History of left heart catheterization (02/27/11) History of right knee joint replacement History of left-sided carotid endarterectomy (07/2003) History of coronary artery stent placement (09/25/03) Social History Smoking Status: Former smoker how long ago did patient quit smokin alcohol intake: former year quit: 1999 substance use type: does not use caffeine: Yes Type: coffee Number of servings: 2 additional social history: does take aspirin ROS ROS ED Constitutional Constitutional ED: Denies chills or fever(s) Eyes Eyes: Denies change in vision or diplopia ENT ENT ED: Reports as per HPI, epistaxis and facial pain; Denies headache(s) or sore throat Cardiovascular Cardiovascular: Denies chest pain or palpitations Respiratory/Chest Respiratory/Chest: Denies cough or dyspnea Gastrointestinal Gastrointestinal: Denies abdominal pain, diarrhea, nausea or vomiting Genitourinary Genitourinary ED: Denies dysuria or hematuria Musculoskeletal Musculoskeletal: Denies back pain or neck pain Integumentary Reports Abrasions; Denies abscess or rash Neurologic Neurologic: Denies headache(s), paresthesias or weakness Psychiatric Psychiatric: Denies anxiety or suicidal thoughts EXAM Physical Exam Const Vital Signs: 03/01/24 18:53 03/01/24 19:50 Temperature 96.3 F L Temperature Source Temporal Pulse Rate 61 Respiratory Rate 16 Respiratory Effort Normal Non-Labored Respiratory Depth Normal Respiratory Pattern Normal Blood Pressure 150/61 H Blood Pressure Mean 90 Pulse Ox 97 Oxygen Delivery Method Room Air Room Air Positive well nourished and well developed General Appearance ED: well developed and NAD HEENT Reports moist mucous membranes HEENT Narrative: Tenderness and traumatic hematoma nasal bridge and above the left eye. No sign of any globe trauma. No mid facial instability. No maxilla tenderness or zygomatic arch tenderness. No active epistaxis. There are 2 superficial lacerations across the nasal bridge. They are partial-thickness, 0.5 cm each, parallel, appear to be consistent with being caused by the bridge of his eyeglasses. No Baez sign. No hemotympanum. No CSF otorhinorrhea. No active nasal bleeding or nasal septal hematoma or perforation. hematoma Eyes PERRL and EOMs intact bilaterally Neck full ROM and supple Neck Narrative: There is some mild tenderness in the cervical portion of the trapezius on the left, he has no pain in the midline or tenderness, and no pain or limitation with moving his head in all directions. Chest Wall inspection of chest normal and palpation of chest normal Resp normal respiratory effort and clear to auscultation bilaterally Cardio regular rate and regular rhythm GI non-tender and non-distended Auscultation: normoactive bowel sounds Palpation: soft Back/Spine no CVA tenderness General Back: other FROM Extremity normal to inspection Extremity Narrative: No tenderness or swelling or limited range of motion right ankle. There is a minor soft tissue swelling volar left wrist that he indicates is acute, it is nontender, there is no bony tenderness throughout the carpus or the distal radius or ulna, and he has full range of motion of the wrist without any pain or limitation. There is no pain with axial loading of the thumb or other ranging of all the digits. He can abduct both shoulders without any difficulty or limitation. General Extremety ED: Negative for edema, pulses abnormal or tenderness General Extremity: Negative for edema or pulses abnormal Neuro oriented x3, CN's II-XII intact bilaterally and no sensory deficits noted [place] Coma Scale: document GCS findings Spontaneous Obeys Commands Oriented 15 Sensorium / Orientation: awake and alert Motor Exam: strength 5/5 throughout Psych mental status grossly normal and thought process normal Skin no rashes or lesions noted and no wounds MDM MDM MDM Narrative Medical decision making narrative: Obtained a CT of the head without contrast, including the injured portion of the upper face. On my interpretation it shows nondisplaced nasal bone fracture but otherwise is negative for anything else acute. Radiology in agreement. With regards to his lacerations these were dermabonded see the procedure note. He states he has the sensation of blood clot in his left naris, I have advised him to try to live with it overnight and then loosen it up with steam tomorrow to see if he can gently blow it out. He is able to stand and walk, nursing cleansed his other minor facial abrasions, radiology did note that they recommended maxillofacial CT because of a questionable nasal bone fracture, but I think that is obvious clinically and I do not think he needs to have the rest of his face imaged emergently for any reason otherwise. Procedures Lacerations nose #1: Length: 0.5 cm Depth: Skin Shape: Linear Prep: Sterile Conditions and Chlorhexadine Laceration repair: Dermabond and Lidocaine with epi (topical LET) nose #2: Length: 0.5 cm Depth: Skin Shape: Linear Prep: Sterile Conditions and Chlorhexadine Laceration repair: Dermabond and Lidocaine with epi (topical LET) Discharge Plan Triage Chief Complaint: Fall ED Provider: Stone Riley Dx/Rx/DC Orders Clinical Impression: Laceration of face, Traumatic hematoma of face, Closed head injury without loss of consciousness, Accidental fall on or from stairs or steps Instructions: Black Eye, ED Laceration, Face: Skin Glue Prescriptions: No Action loratadine [Allergy Relief (loratadine)] 10 mg tablet 10 mg PO DAILY rosuvastatin 10 mg tablet 10 mg PO DAILY levothyroxine 50 mcg tablet 50 mcg PO DAILY vitamin B complex Tablet 1 tab PO DAILY amiodarone 200 mg tablet See Rx Instructions .ROUTE .COMPLEX Qty: 90 3RF Dose Instruction: TAKE 1 TABLET EVERY DAY FOR HEART Rx Instructions: TAKE 1 TABLET EVERY DAY FOR HEART gabapentin 100 mg capsule 100 mg PO TID PRN metformin 500 mg tablet extended release 24 hr 500 mg PO BID Patient Comments: take 1 tablet by mouth once daily WITH EVENING MEAL vitamins A,C,W-oymv-kcuncj 1 EACH capsule 1 ea PO BID aspirin 81 MG tablet,chewable 81 mg PO DAILY@0800 cilostazol 100 mg tablet 100 mg PO BID sennosides-docusate sodium [Stimulant Laxative Plus] 8.6-50 mg Tablet 2 tab PO BID 30 Days Qty: 120 0RF Rx Instructions: Hold for loose stool. If not taking narcotic regimen then may consider stopping. oxycodone 5 mg Tablet 2.5 - 5 mg PO Q4H PRN PRN (Reason: Pain Score 4-10) 5 Days Qty: 20 0RF fluconazole 40 mg/mL Suspension For Reconstitution 200 mg PO DAILY 6 Days Qty: 30 0RF Rx Instructions: Please complete the rx from the hospital for 3 additional days and then take this new rx to complete the regimen. lisinopril 20 mg tablet 20 mg PO BID Qty: 180 3RF amlodipine 5 mg tablet 5 mg PO LUNCH Qty: 90 3RF apixaban 5 mg tablet 5 mg PO BID Qty: 180 3RF metoprolol tartrate 25 mg tablet See Rx Instructions .ROUTE .COMPLEX Qty: 180 4RF Dose Instruction: TAKE 1 TABLET TWICE DAILY FOR HEART Rx Instructions: TAKE 1 TABLET TWICE DAILY FOR HEART Primary Care Provider: Delfino Carrizales Referrals: Delfino Carrizales, DO [Primary Care Provider] - Keep Jacqueline appointment Activity Restrictions/Additional Instructions: Tomorrow, try inhaling some steam without burning or self to loosen clotted nasal blood, and then gently blow your nose to try to remove it. If you have recurrent nasal bleeding, hold pressure and you may try inhaling some phenylephrine- or oxymetazoline-containing nasal spray like Afrin which can help stop the bleeding. Print Language: Khmer Disposition Disposition: Home, Self Care
--- NOTE | 2024-03-01 19:34 | ED.RN ---
This RN went in to introduce myself to the patient and the patient stated Are you my doctor? This RN stated No I am the nurse The pt stated I have been waiting in here to see the dr. This RN stated We just got a critical patient so your doctor may be in the room helping with that. The patient stated well if they are already why are they helping? This RN stated we brought them back to life so they are very much alive, he is reviewing your chart now and should be in any second. Dr Riley walked into the room shortly after.
[2024-03-01] MEDS: Lidocaine/Epi/Tetracaine 50 ML 1 APPLIC TOPICAL (19:48)
[2024-03-01 19:49] VITALS: BMI 20.7
== END 2024-03-01 20:43 | disposition home or self-care (01) ==
PROVIDERS: Emergency Provider Emergency Medicine; PCP Family Medicine; Visit Provider Emergency Medicine
DX: S01.21XA Laceration without foreign body of nose, initial encounter (principal); I48.0 Paroxysmal atrial fibrillation; E11.9 Type 2 diabetes mellitus without complications; Z87.891 Personal history of nicotine dependence; W10.9XXA Fall (on) (from) unspecified stairs and steps, initial encounter; Y92.59 Other trade areas as the place of occurrence of the external cause; Z86.73 Personal history of transient ischemic attack (TIA), and cerebral infarction without residual deficits; I10 Essential (primary) hypertension; Z79.82 Long term (current) use of aspirin; Z79.899 Other long term (current) drug therapy; Z79.84 Long term (current) use of oral hypoglycemic drugs; I25.10 Atherosclerotic heart disease of native coronary artery without angina pectoris; Z95.0 Presence of cardiac pacemaker; Z96.651 Presence of right artificial knee joint; Z95.5 Presence of coronary angioplasty implant and graft; S02.2XXA Fracture of nasal bones, initial encounter for closed fracture; S09.90XA Unspecified injury of head, initial encounter
CPT/HCPCS: 12011; 70450; 99283

== ENCOUNTER → 2024-03-06 | Outpatient (CLI) | payer MEDICARE, SELFPAY ==
[2024-03-06 12:14] LABS: Absolute Lymphocyte Count 0.99 X10^3/uL (0.83-4.51); Basophil# 0.07 X10^3/uL; Basophil% 0.8 % (0-1); Eosinophil# 0.18 X10^3/uL; Hematocrit 34.5 % (40-54); Hemoglobin 10.8 g/dL (13.0-16.5); Lymphocyte # 0.99 X10^3/ul (0.83-4.51); Lymphocyte % 10.8 % (19-41); Mean Corp Hgb Conc 31.3 g/dL (32-36); Mean Corpuscular Hgb 28.3 pg (27.0-32.0); Mean Corpuscular Volume 90.3 fL (80-94); Mean Platelet Vol. 9.7 fl (6.2-12.0); Monocyte% 9.8 % (0-10); NRBC Flagged by Analyzer 0 % (0-5); Neutrophil # 6.96 X10^3/uL (2.7-7.7); Neutrophil % 75.9 % (47-70); Platelet Count 268 K/mm3 (150-450); RBC Distribution Width CV 16.8 % (11.6-14.6); RBC Distribution Width SD 56.1 fl (35.1-43.9); Red Blood Count 3.82 M/mm3 (4.6-6.2); White Blood Count 9.2 K/mm3 (4.4-11.0)
[2024-03-06 12:50] LABS: Anion Gap 6 (5-15); BUN 28 mg/dL (7-18); BUN/Creat Ratio 30.5 RATIO (10-20); Calcium,Total 9.8 mg/dL (8.5-10.1); Chloride 107 mmol/L (98-107); Creatinine, Serum 0.92 mg/dL (0.70-1.30); EST Glomerular Filtration Rate 82 mL/min (>60); Est Glom Filt Rate - Afr Amer 100 mL/min (>60); Glucose 145 mg/dL (74-106); Potassium 4.9 mmol/L (3.5-5.1); Sodium Level 137 mmol/L (136-145)
== END | disposition home or self-care (01) ==
LOC: BFHLAB 10:20
PROVIDERS: PCP Family Medicine; Referring Provider Family Medicine; Visit Provider Family Medicine
DX: D64.9 Anemia, unspecified (principal); E87.1 Hypo-osmolality and hyponatremia
CPT/HCPCS: 36415; 80048; 85025

== ENCOUNTER 2024-04-01 17:10 | Emergency (ER) | payer MEDICARE, SELFPAY ==
[2024-04-01] VITALS (8 sets, daily range): BP systolic 141–195; BP diastolic 77–107; PULSE 60; RESP 16–18; TEMP 36.5–36.6; O2SAT 95–98; BMI 20.7
--- NOTE | 2024-04-01 17:14 | EKG12_ITS ---
Test Reason : CP Blood Pressure : */* mmHG Vent. Rate : 60 BPM Atrial Rate : 60 BPM P-R Int : 196 ms QRS Dur : 170 ms QT Int : 492 ms P-R-T Axes : * -80 75 degrees QTcB Int : 492 ms AV dual-paced rhythm Abnormal ECG Confirmed by YASSINE ALBERTO, HE ([id number]), editor & co founder IRAM ALVAREZ ([id number]) on 04/03/2024 9:25:03 AM Referred By: Confirmed By: HE METZGER MD
--- NOTE | 2024-04-01 18:00 | RAD_ITS ---
INDICATION: chest pain EXAMINATION/TECHNIQUE: X-RAY - portable upright AP chest x-ray COMPARISON: 11/04/2020 FINDINGS: LINES/DEVICES: Stable transvenous pacemaker. LUNGS: Hazy bibasilar airspace opacities without consolidation, pleural effusion or vascular congestion. MEDIASTINUM AND CARDIOVASCULAR STRUCTURES: Cardiac silhouette stable within normal limits. BONES AND SOFT TISSUES: No acute changes. RAD/Chest 1 View (Portable) IMPRESSION: Bibasilar subsegmental atelectasis versus infectious infiltrates and short-term follow-up recommended. Electronically Signed: Dar Yanez MD at 18:51 EDT ,
[2024-04-01 18:24] LABS: Absolute Lymphocyte Count 0.91 X10^3/uL (0.83-4.51); Absolute Neutrophil Count 5.4 X10^3/uL (2.0-7.7); Basophil# 0.07 X10^3/uL; Basophil% 0.9 % (0-1); Eosinophil# 0.34 X10^3/uL; Eosinophils% 4.5 % (0-5); Hematocrit 36.8 % (40-54); Hemoglobin 12.3 g/dL (13.0-16.5); Lymphocyte # 0.91 X10^3/ul (0.83-4.51); Lymphocyte % 11.9 % (19-41); Mean Corp Hgb Conc 33.4 g/dL (32-36); Mean Corpuscular Hgb 28.9 pg (27.0-32.0); Mean Corpuscular Volume 86.4 fL (80-94); Mean Platelet Vol. 9.8 fl (6.2-12.0); Monocyte# 0.82 X10^3/uL; Monocyte% 10.8 % (0-10); NRBC Flagged by Analyzer 0 % (0-5); Neutrophil # 5.42 X10^3/uL (2.7-7.7); Neutrophil % 71.1 % (47-70); Platelet Count 246 K/mm3 (150-450); RBC Distribution Width CV 16.6 % (11.6-14.6); RBC Distribution Width SD 51.8 fl (35.1-43.9); Red Blood Count 4.26 M/mm3 (4.6-6.2); White Blood Count 7.6 K/mm3 (4.4-11.0)
[2024-04-01 18:32] LABS: Anion Gap 7 (5-15); BUN 20 mg/dL (7-18); BUN/Creat Ratio 24.8 RATIO (10-20); Calcium,Total 9.6 mg/dL (8.5-10.1); Chloride 103 mmol/L (98-107); Creatinine, Serum 0.81 mg/dL (0.70-1.30); EST Glomerular Filtration Rate 96 mL/min (>60); Est Glom Filt Rate - Afr Amer 116 mL/min (>60); Estimated Creatinine Clearance 55.57 ml/min; Glucose 112 mg/dL (74-106); Potassium 4.6 mmol/L (3.5-5.1); Sodium Level 135 mmol/L (136-145); Troponin-I HS (w/2H Reflex) 12 pg/mL (3.0-78.0)
--- NOTE | 2024-04-01 19:47 | ED.VIS.DYS ---
HPI History of Present Illness Chief Complaint: Chest Pain Detail of Chief Complaint: Shortness of breath this morning. Informant: patient and spouse/S.O. Associated Symptoms cough Chest Pain: Positive for None Narrative Narrative: 88-year-old male history of CAD with a stent and diabetes. Said he woke up this morning felt mildly short of breath. He denies any chest pain to me. Said he is also having pain down his left back into his left leg. Denies any calf pain or swelling. Denies any fever. He has a chronic cough that has not changed or new. Patient smoked 2 he was 59 but has not smoked for the last 30 years. PE Risk Factors: Negative for Cancer, OCP + Smoking + > 35, Prior DVT or PE, Recent immobilization, Recent surgery or Recent travel Prior similar symptoms: Yes Recent Illness/Hospitalization: Yes [facility] Medical History Closed nondisplaced fracture of lateral malleolus of right fibula Fracture of right ankle, lateral malleolus Constipation Laceration of right hand Sick sinus syndrome Urethral stricture Basal cell carcinoma of skin of right upper lip Actinic keratosis Former smoker Neoplasm of skin of ear Neoplasm of skin of lip Self-catheterizes urinary bladder Family history of prostate problems Neuropathy Hearing problem Cataracts, bilateral Back problem Allergies Essential (primary) hypertension TIA (transient ischemic attack) Symptomatic bradycardia Hepatic cyst Elevated liver enzymes COPD (chronic obstructive pulmonary disease) Obstructive sleep apnea Vertebral artery stenosis Osteoarthritis Left carotid artery stenosis Paroxysmal atrial fibrillation Atherosclerosis of coronary artery of [place] heart without angina pectoris Type II diabetes mellitus Hyperlipidemia Home Medications ?Medication ?Instructions ?Recorded ?Last Taken ?Type loratadine 10 mg tablet (Allergy 10 mg PO DAILY 08/07/19 01/13/24 History Relief (loratadine)) vitamins A,C,L-uzbb-bxyndt 4,296 1 ea PO BID 05/10/20 01/13/24 History mcg-226 mg-90 mg capsule aspirin 81 mg chewable tablet 81 mg PO DAILY@0800 06/05/20 01/13/24 History rosuvastatin 10 mg tablet 10 mg PO DAILY 01/14/21 01/13/24 History levothyroxine 50 mcg tablet 50 mcg PO DAILY 12/03/21 01/13/24 History metformin 500 mg tablet,extended 500 mg PO BID diabetes 12/03/21 01/13/24 History release 24 hr vitamin B complex 1 tab PO DAILY 12/03/21 01/13/24 History amlodipine 5 mg tablet 5 mg PO LUNCH #90 tabs 04/05/23 01/13/24 Rx apixaban 5 mg tablet 5 mg PO BID heart #180 tabs 07/28/23 01/13/24 Rx amiodarone 200 mg tablet See Rx Instructions .Route 08/30/23 01/13/24 Rx .COMPLEX #90 tabs metoprolol tartrate 25 mg tablet See Rx Instructions .Route 09/09/23 01/13/24 Rx .COMPLEX #180 tabs cilostazol 100 mg tablet 100 mg PO BID 01/14/24 01/13/24 History oxycodone 5 mg tablet 2.5 - 5 mg (0.5 - 1 x 5 mg) PO Q4H 01/18/24 Unknown Rx PRN PRN Pain Score 4-10 5 days #20 tabs sennosides 8.6 mg-docusate sodium 2 tab PO BID 30 days #120 tabs 01/18/24 Unknown Rx 50 mg tablet (Stimulant Laxative Plus) gabapentin 100 mg capsule 100 mg PO TID 02/07/24 Unknown History lisinopril 20 mg tablet 20 mg PO BID #180 tabs 03/13/24 Unknown Rx ferrous sulfate 27 mg iron tablet 27 mg PO DAILY 04/01/24 Unknown History melatonin 10 mg capsule 10 mg PO QHS 04/01/24 Unknown History vitamins A,C,X-uxkq-jngnjr 4,296 1 cap PO BID 04/01/24 Unknown History mcg-226 mg-90 mg capsule (PreserVision AREDS) Allergy/AdvReac Type Severity Reaction Status Date / Time Seasonal Allergies: Uncoded Allergy Intermediate congestion Verified 03/01/24 18:53 poison shay extract Allergy Rash Verified 03/01/24 18:53 venom-honey bee Allergy Swelling Verified 03/01/24 18:53 codeine AdvReac Vomiting Verified 03/01/24 18:53 Family History Mother Hypertension History of blood clots Uncle Heart disease CVA (cerebral vascular accident) Uncle Heart disease Grandmother CVA (cerebral vascular accident) Surgical History History of ectropion repair (07/21/22) History of basal cell carcinoma excision 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) History of prostate surgery History of left heart catheterization (02/27/11) History of right knee joint replacement History of left-sided carotid endarterectomy (07/2003) History of coronary artery stent placement (09/25/03) Social History Smoking Status: Former smoker how long ago did patient quit smokin alcohol intake: former year quit: 1999 substance use type: does not use caffeine: Yes Type: coffee Number of servings: 2 additional social history: does take aspirin ROS ROS ED ROS Narrative Shortness of breath. Constitutional Constitutional ED: Denies chills or fever(s) Eyes Eyes: Denies blurry vision ENT ENT ED: Denies ear pain Cardiovascular Cardiovascular: Denies chest pain Respiratory/Chest Respiratory/Chest: Reports cough and dyspnea Gastrointestinal Gastrointestinal: Denies abdominal pain, constipation, diarrhea, melena, nausea or vomiting Genitourinary Genitourinary ED: Denies dysuria or hematuria Musculoskeletal Musculoskeletal: Denies arthralgias Integumentary Denies abscess Neurologic Neurologic: Denies headache(s) Psychiatric Psychiatric: Denies anxiety or depression Endocrine Endocrinology: Denies cold intolerance Hematologic/Lymphatic Hematologic/Lymphatic: Denies easy bleeding or easy bruising Allergic/Immunologic Allergic/Immunologic ED: Denies mouth swelling, tongue swelling or urticaria EXAM Physical Exam Narrative Exam Narrative: 88-year-old male sitting upright in bed. at bedside. Vital signs are stable afebrile. He does not look septic toxic he is in no distress. H EENT exam unremarkable. Neck nontender no lymphadenopathy. No JVD. Lungs coarse breath sounds. No rales rhonchi or wheezing. Equal symmetrical. Heart paced rate 60 no murmur. Chest wall ribs nontender. Abdomen soft nontender. Moving all 4 extremities. Calves are nontender. No cords. He has trace ankle edema bilaterally. That is chronic. Normal dorsi plantarflexion. Normal follow up rep strength. Back his back and lumbar spine are nontender his left SI joint is mild tenderness worse with raising his leg consistent with the same. But he has good strength and sensation in both lower extremities. Neurologically he is awake and alert. No focal motor deficits. Answering questions and following commands. Const Vital Signs: 04/01/24 17:11 04/01/24 17:14 04/01/24 18:11 Temperature 98 F Temperature Source Oral Pulse Rate 60 60 Respiratory Rate 16 17 Respiratory Effort Respiratory Pattern Blood Pressure 156/101 H 195/90 H Blood Pressure Mean 119 125 Pulse Ox 97 98 Oxygen Delivery Method Room Air Room Air Room Air 04/01/24 18:26 04/01/24 19:00 04/01/24 20:00 Temperature Temperature Source Pulse Rate 60 60 Respiratory Rate 16 18 Respiratory Effort Normal Non-Labored Respiratory Pattern Blood Pressure 141/107 H 155/77 H Blood Pressure Mean 118 103 Pulse Ox 98 95 Oxygen Delivery Method Room Air Room Air 04/01/24 20:06 04/01/24 21:00 Temperature Temperature Source Pulse Rate 60 60 Respiratory Rate 18 18 Respiratory Effort Respiratory Pattern Normal Blood Pressure 185/78 H Blood Pressure Mean 113 Pulse Ox 98 Oxygen Delivery Method Room Air Positive well nourished and well developed; Negative for obese, cachectic, contractures or unkempt General Appearance ED: well developed and NAD; Negative for unkempt, cachectic, contractures or pallor Nutritional Appearance: Negative for cachectic or obese HEENT Reports moist mucous membranes atraumatic; Negative for trauma or tenderness Eyes PERRL and EOMs intact bilaterally General Eye ED: Negative for pale conjunctiva or scleral icterus Neck no lymphadenopathy, supple, no meningeal signs and no JVD General: Negative for tenderness Resp normal respiratory effort and clear to auscultation bilaterally Resp Narrative: Coarse breath sounds bilaterally. Suspect chronic lung disease undiagnosed from his smoking history. Auscultation: Negative for rales, rhonchi, wheezes or diminished lung sounds Cardio regular rate, regular rhythm, S1 normal heart sound, S2 normal heart sound and no murmurs Rate: Negative for bradycardia or tachycardic GI non-tender, non-distended and no masses Palpation: soft; Negative for tender, guarding or rebound tenderness present Back/Spine no CVA tenderness and normal to inspection Back/Spine Narrative: Mild left thigh tenderness. Mild straight leg raise left. Normal strength. Normal sensation. Extremity Negative for normal to inspection Extremity Narrative: Trace bilateral ankle edema. General Extremety ED: Yes edema General Extremity: edema Neuro oriented x3 and CN's II-XII intact bilaterally Sensorium / Orientation: alert, oriented to person, oriented to place and oriented to time; Negative for orientation impaired or confused Motor Exam: strength 5/5 throughout Psych mental status grossly normal Appearance: Negative for unkempt Attitude: No agitated and No other Mood & Affect: Negative for depressed, anxious or tearful Thought Process: normal thought process Skin no wounds and skin turgor normal General Skin Exam: Negative for jaundice or pallor Lesions: no lesions Rashes: no rashes Trauma: Negative for abrasion, laceration or puncture MDM MDM MDM Narrative Medical decision making narrative: 88-year-old male mild shortness of breath today. Denies any chest pain to me. No history of DVT or PE. No hemoptysis or pleuritic pain. Repeat exam patient is doing well at 9:20 PM. Nurses walking up and down the hallway without oxygen his pulse ox stayed 95%. Repeat exam his lungs there is no wheezing. He is resting comfortably in the room. No distress. I discussed all test results with both he and his . He may have some underlying lung disease with a smoking history. He did not want to be placed on steroids at home. Follow-up with his primary care physician if is not improving or return if worse. History & Record Review Discussion w/independent historian: Patient and Family Additional record(s) reviewed:: Prior inpatient record, Prior outpatient record, Prior ED visit and Prior labs Lab Data Attestation: I reviewed the patient's lab results. Lab results narrative: CBC shows a white count of 7. H&H 12.3 and 36.8 consistent with chronic anemia. Platelets 246. Electrolytes show sodium 135. Gap 7. BUN and creatinine 20 and 0.8. Glucose 112. Troponin 12. D-dimer 0.88. My clinical suspicion is low for blood clot. Patient is 88 years old. Adjusted for age he does not need a CAT scan. Labs: Laboratory Results - last 24 hr 04/01/24 04/01/24 17:53 20:17 WBC 7.6 RBC 4.26 L Hgb 12.3 L Hct 36.8 L MCV 86.4 MCH 28.9 MCHC 33.4 RDW Std Deviation 51.8 H RDW Coeff of [place] 16.6 H Plt Count 246 MPV 9.8 Immature Gran % (Auto) 0.800 Neut % (Auto) 71.1 H Lymph % (Auto) 11.9 L [place] % (Auto) 10.8 H Eos % (Auto) 4.5 Baso % (Auto) 0.9 Absolute Neuts (auto) 5.4 Absolute Lymphs (auto) 0.91 Nucleated RBC % 0 D-Dimer Quant (PE/DVT) 0.88 H* Sodium 135 L Potassium 4.6 Chloride 103 Carbon Dioxide 25.0 Anion Gap 7 BUN 20 H Creatinine 0.81 Estim Creat Clear Calc 55.57 Est GFR (MDRD) Af Amer 116 Est GFR (MDRD) Non-Af 96 BUN/Creatinine Ratio 24.8 H Glucose 112 H Calcium 9.6 Troponin I High Sens 12 13 Radiography Chest X-Ray - ED: 1 View, Read by ED Physician, Read by Radiologist, Heart, Lungs, Mediastinum, Bony Structures, No Acute Disease and Chronic Changes Diagnostic Testing: Clinical Impression(s) from Imaging Studies Chest X-Ray 04/01/24 18:00 IMPRESSION: Bibasilar subsegmental atelectasis versus infectious infiltrates and short-term follow-up recommended. Electronically Signed: Dar Yanez MD at 18:51 EDT , Chest x-ray, portable, anterior view 2 films interpreted by self radiologist. Shows chronic changes. Left-sided pacemaker. No obvious pneumonia. No edema or effusions. Looks like chronic changes consistent with COPD. Rhythm Strip Rhythm Strip: Paced Rate: 60 Ectopy: None EKG Initial EKG: Attestation: I personally reviewed and interpreted this EKG as follows: Interpretation: Paced Comments: Paced rhythm rate 68. No acute signs of SD or ischemia. Discharge Plan Triage Chief Complaint: Chest Pain Other Complaint: Back ED Provider: Jules Rodriguez Dx/Rx/DC Orders Clinical Impression: Acute dyspnea, History of CAD (coronary artery disease), History of diabetes mellitus Instructions: ED Dyspnea Prescriptions: No Action loratadine [Allergy Relief (loratadine)] 10 mg tablet 10 mg PO DAILY rosuvastatin 10 mg tablet 10 mg PO DAILY levothyroxine 50 mcg tablet 50 mcg PO DAILY vitamin B complex Tablet 1 tab PO DAILY amiodarone 200 mg tablet See Rx Instructions .ROUTE .COMPLEX Qty: 90 3RF Dose Instruction: TAKE 1 TABLET EVERY DAY FOR HEART Rx Instructions: TAKE 1 TABLET EVERY DAY FOR HEART gabapentin 100 mg capsule 100 mg PO TID metformin 500 mg tablet extended release 24 hr 500 mg PO BID Patient Comments: take 1 tablet by mouth once daily WITH EVENING MEAL vitamins A,C,D-ccuo-diavez 1 EACH capsule 1 ea PO BID aspirin 81 MG tablet,chewable 81 mg PO DAILY@0800 cilostazol 100 mg tablet 100 mg PO BID sennosides-docusate sodium [Stimulant Laxative Plus] 8.6-50 mg Tablet 2 tab PO BID 30 Days Qty: 120 0RF Rx Instructions: Hold for loose stool. If not taking narcotic regimen then may consider stopping. oxycodone 5 mg Tablet 2.5 - 5 mg PO Q4H PRN PRN (Reason: Pain Score 4-10) 5 Days Qty: 20 0RF PreserVision AREDS 4,296 mcg-226 mg-90 mg capsule 1 cap PO BID ferrous sulfate 27 mg iron tablet 27 mg PO DAILY melatonin 10 mg capsule 10 mg PO QHS amlodipine 5 mg tablet 5 mg PO LUNCH Qty: 90 3RF apixaban 5 mg tablet 5 mg PO BID Qty: 180 3RF Patient Comments: hold as of 04/01/24 metoprolol tartrate 25 mg tablet See Rx Instructions .ROUTE .COMPLEX Qty: 180 4RF Dose Instruction: TAKE 1 TABLET TWICE DAILY FOR HEART Rx Instructions: TAKE 1 TABLET TWICE DAILY FOR HEART lisinopril 20 mg tablet 20 mg PO BID Qty: 180 3RF Primary Care Provider: Delfino Carrizales Referrals: Delfino Carrizales, [Primary Care Provider] - 3-5 Days if not improving Activity Restrictions/Additional Instructions: Follow-up with your doctor you are still having trouble breathing. Your labs look good. No heart attack. No blood clot. No pneumonia. You may have a touch of underlying lung disease from your history of smoking in the past. If this does not get better they may want to try an inhaler or oral steroids. Print Language: Japanese Disposition Disposition: Home, Self Care
[2024-04-01 20:00] LABS: Reflex Troponin-HS? (from REC) Y
[2024-04-01] MEDS: Ipratropium/Albuterol Sulfate 3 ML AMPUL.NEB INHALATION (20:06)
[2024-04-01 20:26] LABS: D-Dimer Quantitative (DVT/PE) 0.88 FEU/ug/m (0.27-0.49)
[2024-04-01 20:59] LABS: Troponin-I HS 13 pg/mL (3.0-78.0)
== END 2024-04-01 21:34 | disposition home or self-care (01) ==
PROVIDERS: Emergency Provider Emergency Medicine; PCP Family Medicine; Visit Provider Emergency Medicine
DX: R06.00 Dyspnea, unspecified (principal); J44.9 Chronic obstructive pulmonary disease, unspecified; I48.0 Paroxysmal atrial fibrillation; E11.9 Type 2 diabetes mellitus without complications; I25.10 Atherosclerotic heart disease of native coronary artery without angina pectoris; Z87.891 Personal history of nicotine dependence; Z95.5 Presence of coronary angioplasty implant and graft; I10 Essential (primary) hypertension; I25.2 Old myocardial infarction; E78.5 Hyperlipidemia, unspecified; Z79.899 Other long term (current) drug therapy; Z79.84 Long term (current) use of oral hypoglycemic drugs; Z79.01 Long term (current) use of anticoagulants; Z95.0 Presence of cardiac pacemaker; Z96.651 Presence of right artificial knee joint
CPT/HCPCS: 71045; 80048; 84484; 85025; 85379; 93005; 94640; 99285; A4216